=== PATIENT | female | born 1940 ===

== ENCOUNTER 2016-11-04 14:37 | Observation (INO) | payer MEDICARE, BC ==
[2016-11-04 14:47] VITALS: BMI 21.4
[2016-11-04 14:49] VITALS: O2SAT 96
[2016-11-04] MEDS ORDERED: Sodium Chloride 0.9% 1,000 ML IV STA (15:11)
[2016-11-04 15:22] LABS: ADD MANUAL DIFF? NO
[2016-11-04 15:24] LABS: VENOUS BLOOD GAS BASE EXCESS 4.2 mmol/L (0.0-2.0); VENOUS BLOOD PH 7.36 (7.32-7.43)
--- NOTE | 2016-11-04 15:27 | ED PDOC ---
Arrival/HPI - General Historian: Patient, Family - History of Present Illness Time/Duration: 4-6 hours Symptom Onset: Sudden Symptom Course: Unchanged Severity Level: Moderate <Raghu Bowman - Last Filed: 11/04/16 18:40> <Hardik Castañeda - Last Filed: 11/04/16 19:43> - General Chief Complaint: GI Problem Time Seen by Provider: 11/04/16 14:47 - History of Present Illness Narrative History of Present Illness (Text): 11/04/16 15:22 This is a 76 year old female with a PMH notable for HLD, HTN, depression/anxiety , trigeminal neuralgia, and GERD presenting to the ED for evaluation of nausea and vomiting. The patient's daughter reports that the patient is altered from her baseline and has vomited 6-7 times since 12:30pm. The vomitus is bilious without blood. The patient had an appointment with a GI specialist today, but was unable to be seen 2/2 to vomiting. The patient denies fever, chills, sick contacts, chest pain, SOB, changes in bowels/bladder, and extremity paresthesias. 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 - Renal Hx Renal Disorder: No - Endocrine/Metabolic Hx Endocrine Disorders: No - Hematological/Oncological Hx Blood Disorders: No - Integumentary Hx Dermatological Disorder: No - Musculoskeletal/Rheumatological Hx Musculoskeletal Disorders: Yes Hx Falls: Yes (past) Other/Comment: 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 - Gastrointestinal Hx Gastrointestinal Disorders: Yes (hemorrhoids) - Genitourinary/Gynecological Hx Incontinence: Yes - Psychiatric Hx Psychophysiologic Disorder: Yes Hx Anxiety: Yes Hx Depression: Yes Hx Substance Use: No - Surgical History Hx Orthopedic Surgery: Yes (right hip and left arm) - Anesthesia Hx Anesthesia Reactions: No Hx Malignant Hyperthermia: No <Raghu Bowman - Last Filed: 11/04/16 18:40> <Hardik Castañeda - Last Filed: 11/04/16 19:43> - Patient History Narrative Patient History: This is a 76 year old female with a PMH notable for HLD, HTN, depression/anxiety , trigeminal neuralgia, and GERD (Raghu Bowman) Family/Social History - Physician Review Nursing Documentation Reviewed: Yes Family/Social History: No Known Family HX Smoking Status: Never Smoked Hx Alcohol Use: No Hx Substance Use: No <Raghu Bowman - Last Filed: 11/04/16 18:40> Allergies/Home Meds <Raghu Bowman - Last Filed: 11/04/16 18:40> <Hardik Castañeda - Last Filed: 11/04/16 19:43> Allergies/Adverse Reactions: Allergies acetaminophen [From Percocet] Allergy (Verified 11/04/16 14:47) VOMITING oxycodone HCl [From Percocet] Allergy (Verified 11/04/16 14:47) VOMITING Home Medications: Home Meds Medication Instructions Recorded Confirmed RX: Aspirin [Aspirin EC] 81 mg PO DAILY 09/18/16 11/04/16 RX: Sertraline [Zoloft] 50 mg PO HS 09/18/16 11/04/16 RX: carBAMazepine [TEGretol-XR] 100 mg PO QAM 09/18/16 11/04/16 RX: traZODone [Desyrel] 1 tab PO HS 09/18/16 11/04/16 carBAMazepine [TEGretol-XR] 200 mg PO TID 09/21/16 11/04/16 Atorvastatin [Lipitor] 20 mg PO DAILY 11/04/16 11/04/16 Losartan [Cozaar] 25 mg PO DAILY 11/04/16 11/04/16 Pantoprazole [Protonix] 40 mg PO DAILY 11/04/16 11/04/16 Review of Systems - Physician Review All systems were reviewed & negative as marked: Yes - Review of Systems Systems not reviewed;Unavailable: Altered Mental Status Constitutional: Fatigue Eyes: absent: Vision Changes ENT: absent: Hearing Changes, Tinnitus Respiratory: absent: SOB, Cough Cardiovascular: absent: Chest Pain, Palpitations Gastrointestinal: Abdominal Pain, Nausea, Vomiting Genitourinary Female: absent: Dysuria, Frequency Musculoskeletal: absent: Arthralgias, Back Pain Skin: absent: Rash Neurological: absent: Headache, Dizziness Endocrine: absent: Diaphoresis, Polyuria Hemo/Lymphatic: absent: Adenopathy Psychiatric: absent: Anxiety <Raghu Bowman - Last Filed: 11/04/16 18:40> Physical Exam Vital Signs Reviewed: Yes Temperature: Afebrile Blood Pressure: Hypertensive Pulse: Tachycardic Respiratory Rate: Normal Appearance: Positive for: Ill-Appearing Pain Distress: None Mental Status: Positive for: Lethargic. No: Alert and Oriented X 3 - Systems Exam Head: Present: Atraumatic, Normocephalic Pupils: Present: PERRL Extroacular Muscles: Present: EOMI Conjunctiva: Present: Normal Mouth: Present: Dry. No: Drooling Neck: Present: Normal Range of Motion. No: Meningeal Signs, JVD, Lymphadenopathy Respiratory/Chest: Present: Good Air Exchange, Rales (L lung base). No: Clear to Auscultation, Respiratory Distress, Accessory Muscle Use Cardiovascular: Present: Regular Rate and Rhythm, Normal S1, S2. No: Murmurs Abdomen: Present: Normal Bowel Sounds. No: Tenderness, Distention, Peritoneal Signs Upper Extremity: Present: Normal Inspection, NORMAL PULSES. No: Cyanosis, Edema Lower Extremity: Present: Normal Inspection, NORMAL PULSES. No: Edema Neurological: Present: CN II-XII Intact. No: Memory Normal Skin: Present: Warm, Dry, Normal Color. No: Rashes Psychiatric: Present: Alert, Oriented x 3, Normal Insight, Normal Concentration <Raghu Bowman - Last Filed: 11/04/16 18:40> Vital Signs Temp Pulse Resp BP Pulse Ox 11/04/16 14:38 98.3 F 106 H 12 180/90 H 96 Medical Decision Making - Lab Interpretations I have reviewed the lab results: Yes Interpretation: No clinic. lab abnormalty - RAD Interpretation Early Childhood Worker: ED Physician, Radiologist - EKG Interpretation Interpreted by ED Physician: Yes Type: 12 lead EKG <Raghu Bowman - Last Filed: 11/04/16 18:40> <Hardik Castañeda - Last Filed: 11/04/16 19:43> ED Course and Treatment: 11/04/16 15:33 Impression: This is a 76 year old female with a PMH notable for HLD, HTN, depression/anxiety , trigeminal neuralgia, and GERD presenting to the ED for evaluation of nausea and vomiting. The patient appears clinically ill. The patient is lethargic and altered from her baseline per the daughter. Differential: Sepsis PNA UTI CVA Plan: CBC, CMP, Lipase, Mag, Phos, PT, PTT, BNP Blood Cultures VBG UA, Urine Cultures EKG CT Head w/o contrast CXR 1L Bolus NS Zofran 4mg IV stat CT Abd/Pelv with PO and IV contrast Prior Visits: 09/21/16- Vomiting Progress Note: Patient seen and examined at the bedside. Patient appears clinically ill. Patient is lethargic. Patient has basin with small amount of bilious emesis inside. Patient will had a septic workup. CT Head and CXR pending. Labs pending. Patient is also pending CT abd/pelv with PO and IV contrast. 11/04/16 17:30 Dr. Cardenas called and the case was discussed in detail over the phone. He agrees to accept the patient for admission to his service for observation. ( Raghu Bowman) Patient Seen With Resident: In agreement with resident note which contains more details about the patient. Patient was seen and evaluated with resident. Came up with plan and treatment together. 76 year old female presented with nausea and vomiting today. EKG shows NSR at 93 BPM, normal intervals, normal axis, no ST elevations, interpreted by me. 11/04/16 19:[address] David to f/u CT and admit. (Hardik Castañeda) - Lab Interpretations Narrative Lab Interpretation (Text): 11/04/16 15:47 11/04/16 15:00 WBC 7.0 RBC 3.87 Hgb 11.9 L Hct 36.2 MCV 93.5 MCH 30.7 MCHC 32.9 RDW 12.9 Plt Count 182 MPV 9.8 Gran % 82.9 H Lymph % (Auto) 11.1 L Harris % (Auto) 5.4 Eos % (Auto) 0.3 L Baso % (Auto) 0.3 Gran # 5.83 Lymph # 0.8 L Harris # 0.4 Eos # 0.0 Baso # 0.02 PT 11.0 INR 1.02 APTT 23.3 L pO2 52 VBG pH 7.36 VBG pCO2 55.0 VBG HCO3 31.1 H VBG Total CO2 32.8 H VBG O2 Sat (Calc) 88.9 H VBG Base Excess 4.2 H VBG Potassium 3.7 Glucose 151 H Lactate 1.4 FiO2 21.0 Sodium 141.0 Potassium 3.8 Chloride 106.0 Carbon Dioxide 28 Anion Gap 16 BUN 11 Creatinine 0.6 Est GFR ( Amer) > 60 Est GFR (Non-Af Amer) > 60 Random Glucose 144 H Calcium 9.1 Phosphorus 3.8 Magnesium 1.8 Total Bilirubin 0.5 AST 19 ALT 12 Alkaline Phosphatase 112 Troponin I Pending NT-Pro-B Natriuret Pep Pending Total Protein 7.0 Albumin 3.9 Globulin 3.1 Albumin/Globulin Ratio 1.3 Venous Blood Potassium 3.7 (Raghu Bowman) Lab Results: 11/04/16 15:00 11/04/16 15:00 Lab Results 11/04/16 16:35: Lipase 65, Urine Color Yellow, Urine Appearance Clear, Urine pH 7.5, Ur Specific [place] 1.015, Urine Protein Negative, Urine Glucose (UA) Negative, Urine Ketones Negative, Urine Blood Negative, Urine Nitrate Negative, Urine Bilirubin Negative, Urine Urobilinogen 1.0 H, Ur Leukocyte Esterase Negative, Carbamazepine 12 H* 11/04/16 15:00: WBC 7.0, RBC 3.87, Hgb 11.9 L, Hct 36.2, MCV 93.5, MCH 30.7, MCHC 32.9, RDW 12.9, Plt Count 182, MPV 9.8, Gran % 82.9 H, Lymph % (Auto) 11.1 L, Harris % (Auto) 5.4, Eos % (Auto) 0.3 L, Baso % (Auto) 0.3, Gran # 5.83, Lymph # 0.8 L, Harris # 0.4, Eos # 0.0, Baso # 0.02, PT 11.0, INR 1.02, APTT 23.3 L, pO2 52, VBG pH 7.36, VBG pCO2 55.0, VBG HCO3 31.1 H, VBG Total CO2 32.8 H, VBG O2 Sat (Calc) 88.9 H, VBG Base Excess 4.2 H, VBG Potassium 3.7, Glucose 151 H, Lactate 1.4, FiO2 21.0, Sodium 141.0, Potassium 3.8, Chloride 106.0, Carbon Dioxide 28, Anion Gap 16, BUN 11, Creatinine 0.6, Est GFR ( Amer) > 60, Est GFR (Non-Af Amer) > 60, Random Glucose 144 H, Calcium 9.1, Phosphorus 3.8, Magnesium 1.8, Total Bilirubin 0.5, AST 19, ALT 12, Alkaline Phosphatase 112, Troponin I < 0.01, NT-Pro-B Natriuret Pep 173, Total Protein 7.0, Albumin 3.9, Globulin 3.1, Albumin/Globulin Ratio 1.3, Venous Blood Potassium 3.7 - RAD Interpretation Narrative RAD Interpretations (Text): 11/04/16 15:48 CXR- no acute pulmonary pathology 11/04/16 16:[address]- no acute abnormality (Raghu Bowman) Radiology Orders: 11/04/16 15:07 CHEST PORTABLE [RAD] Stat 11/04/16 15:41 HEAD W/O CONTRAST [CT] Stat 11/04/16 16:29 ABDOMEN & PELVIS [ABD PELVIS PO & IV CONTRAST] [CT] Stat - EKG Interpretation EKG Interpretation (Text): 11/04/16 15:39 93bpm normal sinus rhythm normal axis no st t wave changes normal intervals (Raghu Bowman) - Medication Orders Current Medication Orders: Aspirin (Ecotrin) 81 mg PO DAILY ZEINAB Atorvastatin Calcium (Lipitor) 20 mg PO DAILY ZEINAB Carbamazepine (Tegretol) 200 mg PO TID ZEINAB Last Admin: 11/04/16 18:15 Dose: 200 MG Behavioural Document 11/04/16 18:15 EQ (Rec: 11/04/16 18:15 EQ [facility] [email or web address] Maintenance Maintenance Dose Yes Sodium Chloride (Sodium Chloride 0.45%) 1,000 mls @ 40 mls/hr IV .Q24H ZEINAB Last Admin: 11/04/16 18:15 Dose: 40 MLS/HR eMAR Start Stop Document 11/04/16 18:15 EQ (Rec: 11/04/16 18:15 EQ [email or web address] Intravenous Solution Start Date 11/04/16 Start Time 18:15 Insulin Human Regular (Humulin R Med) 0 units SC ACHS ZEINAB PRN Reason: Protocol Losartan Potassium (Cozaar) 25 mg PO DAILY ZEINAB Ondansetron HCl (Zofran Inj) 4 mg IVP Q4H PRN PRN Reason: Nausea/Vomiting Pantoprazole Sodium (Protonix Inj) 40 mg IVP DAILY [facility] Last Admin: 11/04/16 18:15 Dose: 40 MG IVP Administration Document 11/04/16 18:15 EQ (Rec: 11/04/16 18:15 EQ [email or web address] Charges for Administration # of IVP Administrations 1 Sertraline HCl (Zoloft) 50 mg PO HS ZEINAB Trazodone HCl (Desyrel) 100 mg PO HS ZEINAB Discontinued Medications Sodium Chloride (Sodium Chloride 0.9%) 1,000 mls @ 999 mls/hr IV .Q1H1M STA Stop: 11/04/16 16:11 Last Admin: 11/04/16 15:19 Dose: 999 MLS/HR eMAR Start Stop Document 11/04/16 15:19 EQ (Rec: 11/04/16 15:19 EQ [email or web address] Intravenous Solution Start Date 11/04/16 Start Time 15:19 Iohexol (Omnipaque 350 100 Ml) Confirm Administered Dose 350 mg .ROUTE .STK-MED ONE Stop: 11/04/16 17:56 Iohexol (Omnipaque 240 (50 Ml)) Confirm Administered Dose 50 ml .ROUTE .STK-MED ONE Stop: 11/04/16 17:57 Disposition/Present on Arrival - Present on Arrival Any Indicators Present on Arrival: No History of DVT/PE: No History of Uncontrolled Diabetes: No Urinary Catheter: No History of Decub. Ulcer: No History Surgical Site Infection Following: None - Disposition Have Diagnosis and Disposition been Completed?: Yes Disposition Time: 16:00 Patient Plan: Admission <Raghu Bowman - Last Filed: 11/04/16 18:40> - Present on Arrival Any Indicators Present on Arrival: No - Disposition Have Diagnosis and Disposition been Completed?: Yes Disposition Time: 19:43 Patient Plan: Admission <Hardik Castañeda - Last Filed: 11/04/16 19:43> - Disposition Diagnosis: Intractable nausea and vomiting, Weakness Disposition: HOSPITALIZED Patient Problems: Current Active Problems Problem Status Diagnosed Intractable nausea and vomiting Acute Intractable vomiting Acute Weakness Acute Condition: FAIR
[2016-11-04 15:29] LABS: BASO # 0.02 K/mm3 (0.0-2.0); BASO % 0.3 % (0.0-3.0); EOS % 0.3 % (1.5-5.0); GRAN # 5.83 (1.4-6.5); GRAN % 82.9 % (50.0-68.0); HEMATOCRIT 36.2 % (36.0-48.0); LYMPH # 0.8 (1.2-3.4); LYMPH % 11.1 % (22.0-35.0); MEAN CELL VOLUME 93.5 fL (80.0-105.0); MEAN CORPUSCULAR HEMOGLOBIN 30.7 pg (25.0-35.0); MEAN CORPUSCULAR HGB CONC 32.9 g/dl (31.0-37.0); MEAN PLATELET VOLUME 9.8 fl (7.0-11.0); MONO # 0.4 (0.1-0.6); MONO % 5.4 % (1.0-6.0); PLATELET COUNT 182 10^3/uL (120.0-450.0); RED CELL DISTRIBUTION WIDTH 12.9 % (11.5-14.5)
[2016-11-04 15:35] LABS: ALB/GLOB RATIO 1.3 (1.1-1.8); ALKALINE PHOSPHATASE 112 U/L (38-133); ALT/SGPT 12 U/L (7-56); AST/SGOT 19 U/L (15-39); BILIRUBIN,TOTAL 0.5 mg/dL (0.2-1.3); BLOOD UREA NITROGEN 11 mg/dL (7-21); CALCIUM 9.1 mg/dL (8.4-10.5); CARBON DIOXIDE 28 mmol/L (21-33); CHLORIDE 100 mmol/L (98-107); GFR AFRICAN-AMERICAN > 60; GLUCOSE,RANDOM 144 mg/dL (70-110); INR 1.02 (0.93-1.08); MAGNESIUM 1.8 mg/dL (1.7-2.2); PARTIAL THROMBOPLASTIN TIME 23.3 Seconds (23.7-30.8); PHOSPHOROUS 3.8 mg/dL (2.5-4.5); POTASSIUM 3.8 mmol/L (3.6-5.0); SODIUM 140 mmol/L (132-148)
[2016-11-04 15:48] LABS: TROPONIN I < 0.01 ng/mL
--- NOTE | 2016-11-04 15:53 | RAD ---
HISTORY: Sepsis Patient COMPARISON: 09/21/2016 FINDINGS: LUNGS: No active pulmonary disease. PLEURA: No significant pleural effusion identified, no pneumothorax apparent. CARDIOVASCULAR: Normal. OSSEOUS STRUCTURES: No significant abnormalities. VISUALIZED UPPER ABDOMEN: Normal. OTHER FINDINGS: None. IMPRESSION: No active disease.
--- NOTE | 2016-11-04 16:15 | CT ---
PROCEDURE: CT HEAD WITHOUT CONTRAST. HISTORY: AMS COMPARISON: 09/22/2016 TECHNIQUE: Axial computed tomography images were obtained through the head/brain without intravenous contrast. Radiation dose: Total exam DLP = 774 mGy-cm. FINDINGS: HEMORRHAGE: No intracranial hemorrhage. BRAIN: No mass effect or edema. No atrophy or chronic microvascular ischemic changes. VENTRICLES: Unremarkable. No hydrocephalus. CALVARIUM: Unremarkable. PARANASAL SINUSES: Unremarkable as visualized. No significant inflammatory changes. MASTOID AIR CELLS: Unremarkable as visualized. No inflammatory changes. OTHER FINDINGS: None. IMPRESSION: No acute finding
[2016-11-04] MEDS ORDERED: Sodium Chloride 0.45% 1,000 ML IV SCH (16:30)
[2016-11-04 16:45] LABS: PH,URINE 7.5 (4.7-8.0); URINE BILIRUBIN NEGATIVE (NEGATIVE); URINE BLOOD NEGATIVE (NEGATIVE); URINE GLUCOSE (UA) NEGATIVE (NEGATIVE); URINE KETONE NEGATIVE (NEGATIVE); URINE LEUKOCYTE ESTERASE NEGATIVE Leu/uL (NEGATIVE); URINE PROTEIN NEGATIVE mg/dL (<30 mg/dL)
[2016-11-04 16:49] LABS: URINE APPEARANCE CLEAR (CLEAR); URINE COLOR YELLOW (YELLOW)
[2016-11-04] MEDS ORDERED: Iohexol 350 MG/100 ML VIAL ONE (17:55)
[2016-11-04] MEDS ORDERED: Iohexol 240 (50 ml) ONE (17:56)
[2016-11-04] MEDS ORDERED: CARBAMAZEPINE 200 MG PO SCH (18:00)
--- NOTE | 2016-11-04 21:49 | CT ---
EXAM: CT Abdomen and Pelvis With Intravenous Contrast. CLINICAL HISTORY: 76 years old, female; Signs and symptoms; Nausea and vomiting; Prior surgery; Surgery date: 6+ months; Surgery type: Cholecystectomy; Additional info: Intractible nausea and vomiting TECHNIQUE: Axial computed tomography images of the abdomen and pelvis with intravenous contrast. This CT exam was performed using one or more of the following dose reduction techniques: automated exposure control, adjustment of the mA and/or kV according to patient size, and/or use of iterative reconstruction technique. Coronal and sagittal reformatted images were created and reviewed. CONTRAST: 100 mL of OMNIPAQUE 350 administered intravenously. COMPARISON: CT - ABD PELVIS IV CONTRAST ONLY 09/21/2016 1:13:28 PM FINDINGS: Lower thorax: Mild cardiomegaly. Mild atelectasis/scarring. Few pulmonary nodules, up to 0.4 cm, stable. ABDOMEN: Liver: Minimal intrahepatic ductal dilatation. Gallbladder and bile ducts: Cholecystectomy. Dilated common bile duct, up to 1.4 cm, grossly stable. Pancreas: No ductal dilation. No mass. Spleen: No splenomegaly. Adrenals: No mass. Kidneys and ureters: RIGHT renal cyst. No hydronephrosis. Stomach and bowel: Tiny duodenal diverticulum. Few scattered diverticula within colon. No associated inflammatory stranding. No definite mural thickening. No obstruction. Appendix: Normal caliber. No inflammation. PELVIS: Bladder: Unremarkable. Reproductive: Unremarkable as visualized. ABDOMEN and PELVIS: Intraperitoneal space: No significant fluid collection. No free air. Bones/joints: Postsurgical changes of LEFT femur. Subacute compression deformity T11 vertebral body, stable. Mild degenerative changes of spine. Soft tissues: Unremarkable. Vasculature: Mild atherosclerotic disease. No abdominal aortic aneurysm. Lymph nodes: No pathologically enlarged lymph nodes. IMPRESSION: 1. Diverticulosis without CT evidence of diverticulitis. 2. Biliary ductal dilatation, grossly stable. Consider MRCP for further evaluation. 3. Incidental/non-acute findings are described above.
[2016-11-04] MEDS ORDERED: Apap-Butalbital-Caffeine 325-50-40mg Tab PO STA (22:03)
[2016-11-04] MEDS: Insulin Reg-MEDIUM-Coverage SC SCH (22:28)
[2016-11-04] MEDS ORDERED: guaiFENesin 100 mg/5 ml Syrup UD PO PRN (22:52)
[2016-11-05 00:07] VITALS: TEMP 98.1
--- NOTE | 2016-11-05 06:03 | HP ---
I know the patient quite well after spending 3 weeks with her at [facility] for rehabilitation and [facility] for status post left hip surgery. She is here this morning with about 8 hours of nause a, vomiting, and diarrhea. Brought in by her daughter. She is a 76-year-old female with nausea, vom iting, diarrhea, some watery diarrhea, and she is uncomfortable with some abdominal pain. She had no temperatures. Other than that, she has been doing quite well. She has been home. PAST MEDICAL HISTORY: Anxiety, depression. PAST SURGICAL HISTORY: History left hip surgery. SOCIAL HISTORY: No smoking, no drinking, no drugs. MEDICATIONS: She takes atorvastatin for high cholesterol, Protonix for GERD, aspirin, Cozaar for hyp ertension, Zoloft for depression, Tegretol for her seizures and Desyrel for psychiatric disorders. REVIEW OF SYSTEMS: No vision changes, no hearing changes. Her speech is slow, but that is her basel ine. No chest pain, no shortness of breath, no palpitations. No coughing up mucus. No dizziness, no headache. She is having nausea, vomiting, and diarrhea with abdominal pain. She is having left jarad e a little bit weakness which she has been going to physical therapy for for a while. PHYSICAL EXAMINATION: VITAL SIGNS: She has a 98.3 temp, 106 pulse, 180/90 blood pressure, 12 respiratory rate, 96% O2 sat on room air. HEENT: Head is atraumatic, normocephalic. Extraocular muscles are intact. Pupils equal, reactive t o light. NECK: Supple. HEART: Regular rate. LUNGS: Decreased breath sounds but clear to auscultation. ABDOMEN: Soft, nontender, positive bowel sounds. No guarding, no rebound, no CVA tenderness. EXTREMITIES: No edema. Left side is weaker than the right side. She can move all 4 extremities. NEUROLOGIC: Cranial nerves II-XII grossly intact. LYMPHATICS: Thyroid midline. No palpable lymphadenopathy appreciated. LABORATORY DATA: She has a white count of 7, hemoglobin 11.9, hematocrit 36.2, platelets 182. INR i s 1.02. Sodium 140, potassium 3.8, BUN 11, creatinine 0.6, GFR is greater than 60, sugar is 144 (I p ut her on insulin coverage), calcium 9.1, phosphorus 3.8, magnesium 1.8. Total bili is 0.5, AST is 1 9, ALT is 12, alkaline phosphatase 112. Troponin is less than 0.01. Total protein is 7, albumin is 3.9, globulin 3.1. Lipase is 65. Urine: Urobilirubin is 1; otherwise is negative. She will have a consult with GI. She will have IV fluids. She will have Zofran, Protonix, insulin c overage, her basic regular medications. Waiting for a CAT scan of the abdomen and pelvis to be perfo rmed. She is going to go in for observation status right now. I ordered physical therapy. I am goi ariel to order stool for C. diff. I am hoping that she improves. She will be in observation and if she does well, will discharge her tomorrow. If she improves, I will start her on clear fluids tomorrow morning, maybe regular for lunch if she has a good night. But or right now, she will be n.p.o. excep t for meds. This patient is in observation status for nausea, vomiting and diarrhea. Chau Cardenas DO cc: [id number] TT: 11/05/2016 06:02:34 alex
[2016-11-05 07:05] LABS: ALB/GLOB RATIO 1.1 (1.1-1.8); ALKALINE PHOSPHATASE 83 U/L (38-133); ALT/SGPT 11 U/L (7-56); AST/SGOT 19 U/L (15-39); BILIRUBIN,TOTAL 0.5 mg/dL (0.2-1.3); BLOOD UREA NITROGEN 8 mg/dL (7-21); CALCIUM 8.8 mg/dL (8.4-10.5); CARBON DIOXIDE 30 mmol/L (21-33); CHLORIDE 103 mmol/L (98-107); GFR AFRICAN-AMERICAN > 60; GLUCOSE,RANDOM 94 mg/dL (70-110); POTASSIUM 3.5 mmol/L (3.6-5.0); SODIUM 139 mmol/L (132-148)
[2016-11-05 07:12] LABS: MEAN CELL VOLUME 93.9 fL (80.0-105.0); MEAN CORPUSCULAR HEMOGLOBIN 30.6 pg (25.0-35.0); MEAN CORPUSCULAR HGB CONC 32.6 g/dl (31.0-37.0); MEAN PLATELET VOLUME 9.8 fl (7.0-11.0); RED CELL DISTRIBUTION WIDTH 13.3 % (11.5-14.5); WHITE BLOOD COUNT 5.6 10^3/ul (4.5-11.0)
[2016-11-05] MEDS: Insulin Reg-MEDIUM-Coverage SC SCH ×2 (08:20→12:37)
[2016-11-05] MEDS ORDERED: Potassium Chloride 10 mEq 100 ML IVPB ONE (08:21)
[2016-11-05 09:11] VITALS: BP 125/59; PULSE 89
[2016-11-05 09:33] VITALS: RESP 18
--- NOTE | 2016-11-05 12:05 | CP.PCM.CON ---
History of Present Illness - History of Present Illness History of Present Illness: CC: Vomiting HPI: 76 year old female with h/o HTN, HLD, depression/anxiety, trigeminal neuralgia, and GERD who is admitted with vomiting. She reports about 6-7 episodes of non-bloody vomiting yesterday. She says that prior to that she was doing fine. She denies any abdominal pain now. She feels better today after eating breakfast. She reports having 1-2 bm per day. She doesn't chew her food well per the career development associate at the bedside. She recently had an endoscopy which was not too remarkable. She does take PPI daily. CT scan reviewed. No chest pain or sob. No fever. No weight loss. No blood in the stool. No dysphagia. 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 - RENAL Hx Chronic Kidney Disease: No - ENDOCRINE/METABOLIC Hx Endocrine Disorders: No - HEMATOLOGICAL/ONCOLOGICAL Hx Blood Disorders: No - INTEGUMENTARY Hx Dermatological Problems: No - MUSCULOSKELETAL/RHEUMATOLOGICAL Hx Arthritis: Yes (rheumatoid arthritis) Hx Falls: No - GASTROINTESTINAL Hx Gastrointestinal Disorders: Yes (hemorrhoids) - GENITOURINARY/GYNECOLOGICAL Hx Incontinence: Yes - PSYCHIATRIC Hx Psychophysiologic Disorder: Yes Hx Anxiety: Yes Hx Depression: Yes Hx Substance Use: No - SURGICAL HISTORY Hx Orthopedic Surgery: Yes (right hip and left arm) - ANESTHESIA Hx Anesthesia Reactions: No Hx Malignant Hyperthermia: No Meds Allergies/Adverse Reactions: Allergies Allergy/AdvReac Type Severity Reaction Status Date / Time acetaminophen [From Percocet] AdvReac Intermediate DIZZINESS Verified 11/04/16 22:57 oxycodone HCl [From Percocet] AdvReac Intermediate DIZZINESS Verified 11/04/16 22:57 - Medications Medications: Current Medications Aspirin (Ecotrin) 81 mg PO DAILY [facility] Last Admin: 11/05/16 09:03 Dose: 81 mg Atorvastatin Calcium (Lipitor) 20 mg PO DAILY [facility] Last Admin: 11/05/16 09:03 Dose: 20 mg Carbamazepine (Tegretol) 200 mg PO BID [facility] Last Admin: 11/05/16 09:03 Dose: 200 mg Guaifenesin (Robitussin) 100 mg PO Q6 PRN PRN Reason: Cough Last Admin: 11/04/16 23:12 Dose: 100 mg Sodium Chloride (Sodium Chloride 0.45%) 1,000 mls @ 40 mls/hr IV .Q24H [facility] Last Admin: 11/04/16 18:15 Dose: 40 mls/hr Insulin Human Regular (Humulin R Med) 0 units SC ACHS [facility] PRN Reason: Protocol Last Admin: 11/05/16 08:20 Dose: Not Given Losartan Potassium (Cozaar) 25 mg PO DAILY [facility] Last Admin: 11/05/16 09:03 Dose: 25 mg Ondansetron HCl (Zofran Inj) 4 mg IVP Q4H PRN PRN Reason: Nausea/Vomiting Last Admin: 11/04/16 23:14 Dose: 4 mg Pantoprazole Sodium (Protonix Inj) 40 mg IVP DAILY [facility] Last Admin: 11/05/16 09:03 Dose: 40 mg Sertraline HCl (Zoloft) 50 mg PO HS [facility] Last Admin: 11/04/16 22:28 Dose: 50 mg Trazodone HCl (Desyrel) 100 mg PO [facility] Last Admin: 11/04/16 22:28 Dose: 100 mg Physical Exam - Constitutional Appears: No Acute Distress, Chronically Ill Additional comments: elderly female - Head Exam Head Exam: ATRAUMATIC, NORMOCEPHALIC - Eye Exam Eye Exam: Normal appearance, PERRL. absent: Scleral icterus - ENT Exam ENT Exam: Mucous Membranes Moist, Normal Oropharynx - Neck Exam Neck exam: Negative for: Lymphadenopathy, Thyromegaly - Respiratory Exam Respiratory Exam: Clear to Auscultation Bilateral, NORMAL BREATHING PATTERN. absent: Wheezes, Respiratory Distress - Cardiovascular Exam Cardiovascular Exam: REGULAR RHYTHM, +S1, +S2 - GI/Abdominal Exam GI & Abdominal Exam: Soft. absent: Distended, Firm, Guarding, Tenderness - Extremities Exam Extremities exam: Positive for: normal capillary refill. Negative for: pedal edema - Neurological Exam Neurological exam: Alert, Oriented x3 - Psychiatric Exam Psychiatric exam: Normal Affect, Normal Mood - Skin Skin Exam: Dry, Normal Color, Warm Results - Vital Signs Recent Vital Signs: Last Vital Signs Temp 98.1 F 11/05/16 06:00 Pulse 89 11/05/16 09:03 Resp 18 11/05/16 06:00 BP 125/59 L 11/05/16 09:03 Pulse Ox 96 11/05/16 06:00 - Labs Result Diagrams: 11/05/16 06:00 11/05/16 06:00 Labs: Laboratory Results - last 24 hr 11/05/16 06:00 WBC 5.6 RBC 3.30 L Hgb 10.1 L Hct 31.0 L MCV 93.9 MCH 30.6 MCHC 32.6 RDW 13.3 Plt Count 169 MPV 9.8 Sodium 139 Potassium 3.5 L Chloride 103 Carbon Dioxide 30 Anion Gap 10 BUN 8 Creatinine 0.7 Est GFR ( Amer) > 60 Est GFR (Non-Af Amer) > 60 Random Glucose 94 Calcium 8.8 Total Bilirubin 0.5 AST 19 ALT 11 Alkaline Phosphatase 83 Total Protein 6.0 Albumin 3.2 Globulin 2.8 Albumin/Globulin Ratio 1.1 Assessment & Plan - Assessment and Plan (Free Text) Assessment: 76 year old female with h/o HTN, HLD, GERD, trigemninal neuralgia a/w vomiting 1. Nausea and vomiting 2. GERD 3. Common bile duct dilation Plan: -symptoms appear resolved -continue PPI therapy -supportive care IV hydration/antiemetics as needed -advance diet as tolerated -ok to discharge from GI standpoint if tolerating diet -recent endoscopy with biopsies was unremarkable -CT scan reviewed -CBD dilation noted -recommend elective MRCP, can be done outpatient -most likely etiology is post cholecystectomy -lfts are normal -will sign off at this time - Date & Time Date: 11/05/16 Time: 12:05
--- NOTE | 2016-11-05 12:08 | CARD ---
APPROVED REPORT EKG Measurement Heart [id number] <Conclusion> Normal sinus rhythm Normal ECG
--- NOTE | 2016-11-05 22:08 | DS ---
She will be discharged today. She did very well last night. She slept very well. No more nausea, vomiting this morning, blood pressure is better. She is comfortable, alert, better attitude. She is on IV fluids, Cozaar, Desyrel, Ecotrin, Fioricet as needed that was discontinued, insulin as needed for routine checks, Lipitor, Protonix, Robitussin, IV fluids. I decreased her Tegretol since it was an elevated number from 3 times a day to 1 a day, Zofran, and Zoloft. PHYSICAL EXAMINATION: VITAL SIGNS: She has a 98.1 temp, 118 which is now 98 pulse, 124/55 blood pressure, 20 respiratory rate, O2 sat on room air. She is very alert, aware, talking, more animated today than yesterday. HEENT: Head is atraumatic, normocephalic. Throat is moist. NECK: Supple. HEART: Regular rate. LUNGS: Decreased breath sounds, but clear to auscultation. ABDOMEN: Soft. EXTREMITIES: No edema, much better than the other day. MEDICATIONS: She is currently on Cozaar, Desyrel, Ecotrin, Lipitor, Protonix, Tegretol, Zofran and Zoloft. LABORATORY DATA: She has a white count of 5.6, hemoglobin is 10.1, hematocrit 31, platelets 169. A 139 sodium, potassium 3.5. We will give her a K rider this morning. BUN is 8, creatinine 0.7, GFR is greater than 60, sugar is 94, calcium is 8.8, total bili is 0.5, AST is 19, ALT 11, alk phos is 83, total protein 6. Urine was clean. Her carbamazepine was elevated at 12; we will decrease the Tegretol to twice a day from 3 times a day. PLAN: To discharge her later today. She will have clears for breakfast, regular lunch. If she does well, she goes home. They will call me after lunch , the nurses. Chau Cardenas DO cc: [phone] TT: 11/05/2016 22:07:43 alex BROWN
== END 2016-11-05 13:47 | disposition home or self-care (01) ==
LOC: ED 14:37 → ERH 17:29 → 3RNO 21:44
PROVIDERS: ADMIT Family Medicine; ATTEND Family Medicine
DX: R11.2 Nausea with vomiting, unspecified (principal); R53.1 Weakness; R19.7 Diarrhea, unspecified; I10 Essential (primary) hypertension; E78.00 Pure hypercholesterolemia, unspecified; F32.9 Major depressive disorder, single episode, unspecified; F41.9 Anxiety disorder, unspecified; K21.9 Gastro-esophageal reflux disease without esophagitis; G50.0 Trigeminal neuralgia; K83.8 Other specified diseases of biliary tract; Z79.82 Long term (current) use of aspirin
CPT/HCPCS: 36415; 70450; 71010; 74177; 80053; 80156; 81003; 82803; 83690; 83735; 83880; 84100; 84145; 84484; 85025; 85027; 85610; 85730; 87040; 87086; 93005; 96374; 99285; C9113; G0378; J2405; J3480; J7030; J7040; Q9966; Q9967

== ENCOUNTER 2017-03-25 22:42 | Inpatient (IN) | payer MEDICARE, BC ==
[2017-03-25 23:22] LABS: BASO # 0.02 K/mm3 (0.0-2.0); BASO % 0.3 % (0.0-3.0); EOS # 0.1 (0.0-0.7); EOS % 1.6 % (1.5-5.0); GRAN # 4.39 (1.4-6.5); HEMOGLOBIN 11.6 g/dL (12.0-16.0); LYMPH # 2.2 (1.2-3.4); LYMPH % 29.8 % (22.0-35.0); MEAN CELL VOLUME 93.9 fl (80.0-105.0); MEAN CORPUSCULAR HEMOGLOBIN 30.9 pg (25.0-35.0); MEAN PLATELET VOLUME 9.7 fl (7.0-11.0); MONO # 0.7 (0.1-0.6); MONO % 9.3 % (1.0-6.0); PLATELET COUNT 190 10^3/uL (120.0-450.0); RBC 3.75 10^6/uL (3.5-6.1); RED CELL DISTRIBUTION WIDTH 13.2 % (11.5-14.5); WHITE BLOOD COUNT 7.4 10^3/ul (4.5-11.0)
[2017-03-25 23:23] LABS: ALB/GLOB RATIO 1.5 (1.1-1.8); ALBUMIN 3.8 g/dL (3.0-4.8); ALT/SGPT 15 U/L (7-56); AST/SGOT 24 U/L (15-39); BLOOD UREA NITROGEN 15 mg/dL (7-21); CALCIUM 8.7 mg/dL (8.4-10.5); GFR AFRICAN-AMERICAN > 60; GFR NON-AFRICAN AMERICAN > 60; MAGNESIUM 1.8 mg/dL (1.7-2.2)
[2017-03-25 23:29] LABS: INR 1.11 (0.93-1.08); PARTIAL THROMBOPLASTIN TIME 28.2 Seconds (23.7-30.8)
--- NOTE | 2017-03-25 23:33 | ED PDOC ---
Arrival/HPI - General Chief Complaint: Altered Mental Status Time Seen by Provider: 03/25/17 22:47 Historian: Patient, Family EM Caveat: Altered Mental Status - History of Present Illness Narrative History of Present Illness (Text): 03/25/17 23:33 77 year old female, whose past medical history includes hyperlipidemia, hypertension, depression/anxiety, trigeminal neuralgia, and GERD, presents by EMS for altered mental status after taking nightly medication. Patient's family reports she gave her the regular medications, but became unresponsive after. HPI and ROS limited due to patient's altered mental status. PMD: Dr. 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 - Renal Hx Renal Disorder: No - Endocrine/Metabolic Hx Endocrine Disorders: No - Hematological/Oncological Hx Blood Disorders: No - Integumentary Hx Dermatological Disorder: No - Musculoskeletal/Rheumatological Hx Arthritis: Yes (rheumatoid arthritis) Hx Falls: No - Gastrointestinal Hx Gastrointestinal Disorders: Yes (hemorrhoids) - Genitourinary/Gynecological Hx Incontinence: Yes - Psychiatric Hx Psychophysiologic Disorder: Yes Hx Anxiety: Yes Hx Depression: Yes Hx Substance Use: No - Surgical History Hx Orthopedic Surgery: Yes (right hip and left shoulder, left leg with metal) Other/Comment: metal implants - Anesthesia Hx Anesthesia Reactions: No Hx Malignant Hyperthermia: No Family/Social History - Physician Review Nursing Documentation Reviewed: Yes Family/Social History: No Known Family HX Smoking Status: Never Smoked Hx Alcohol Use: No Hx Substance Use: No Allergies/Home Meds Allergies/Adverse Reactions: Allergies acetaminophen [From Percocet] Adverse Reaction (Intermediate, Verified 11/04/16 22:57) DIZZINESS oxycodone HCl [From Percocet] Adverse Reaction (Intermediate, Verified 11/04/16 22:57) DIZZINESS Home Medications: Home Meds Medication Instructions Recorded Confirmed Aspirin [Aspirin EC] 81 mg PO DAILY 09/18/16 03/26/17 Sertraline [Zoloft] 100 mg PO HS 09/18/16 03/26/17 traZODone [Desyrel] 150 mg PO HS 09/18/16 03/26/17 Pantoprazole [Protonix EC Tab] 40 mg PO DAILY 11/04/16 03/26/17 Atorvastatin [Lipitor] 20 mg PO DAILY 03/26/17 03/26/17 Baclofen [Lioresal] 10 mg PO DAILY 03/26/17 03/26/17 Calcium Carbonate/Vitamin D3 1 tab PO DAILY 03/26/17 03/26/17 [Calcium 600+D Softgel] Gabapentin [Neurontin] 300 mg PO DAILY 03/26/17 03/26/17 Losartan [Cozaar] 25 mg PO DAILY 03/26/17 03/26/17 Promethazine [Phenergan] 12.5 mg PO Q6 PRN 03/26/17 03/26/17 Ranitidine HCl [Zantac] 150 mg PO BID 03/26/17 03/26/17 Sennosides/Docusate Sodium [Senna 2 tab PO DAILY 03/26/17 03/26/17 S Tablet] Temazepam [Restoril] 30 mg PO HS 03/26/17 03/26/17 Tramadol HCl/Acetaminophen 50 mg PO BID PRN 03/26/17 03/26/17 [Tramadol-Acetaminophn 37.5-325] carBAMazepine [TEGretol] 200 mg PO HS 03/26/17 03/26/17 carBAMazepine [TEGretol] 300 mg PO DAILY 03/26/17 03/26/17 Review of Systems - Physician Review All systems were reviewed & negative as marked: Yes - Review of Systems Systems not reviewed;Unavailable: Altered Mental Status Physical Exam Vital Signs Reviewed: Yes Vital Signs Pulse Resp BP Pulse Ox 03/26/17 03:35 89 16 140/68 100 03/26/17 02:13 80 16 132/81 100 03/26/17 00:22 84 16 103/53 L 100 03/25/17 23:02 67 18 125/74 95 03/25/17 22:52 66 14 125/74 100 Blood Pressure: Normal Pulse: Regular Respiratory Rate: Normal Appearance: Positive for: Well-Appearing, Non-Toxic, Comfortable Pain Distress: None Mental Status: No: Alert and Oriented X 3 Finger Stick Blood Glucose: 129 - Systems Exam Head: Present: Atraumatic, Normocephalic Pupils: Present: PERRL Extroacular Muscles: Present: EOMI Conjunctiva: Present: Normal Mouth: Present: Moist Mucous Membranes Neck: Present: Normal Range of Motion Respiratory/Chest: Present: Clear to Auscultation, Good Air Exchange. No: Respiratory Distress, Accessory Muscle Use Cardiovascular: Present: Regular Rate and Rhythm, Normal S1, S2. No: Murmurs Abdomen: Present: Normal Bowel Sounds. No: Tenderness, Distention, Peritoneal Signs Back: Present: Normal Inspection Upper Extremity: Present: Normal Inspection. No: Cyanosis, Edema Lower Extremity: Present: Normal Inspection. No: Edema Neurological: Present: GCS=15, CN II-XII Intact Skin: Present: Warm, Dry, Normal Color. No: Rashes Psychiatric: Present: Normal Insight, Normal Concentration Medical Decision Making ED Course and Treatment: 03/25/17 23:33 Impression: 77 year old female present for altered mental status at home after taking regular nightly medication. Plan: -- CT Head -- EKG -- Labs -- Chest X-ray -- Blood Culture -- Urine Culture -- Urinalysis -- Reassess and disposition Prior Visits: Notes and results from previous visits were reviewed. On 11/04/2016 patient came in complaining of nausea and vomiting. Progress Notes: EKG shows NSR at 70 BPM. Normal ECG. Interpreted by me. 03/26/17 00:50 CXR Impression: As read by me, shows no acute processes. EXAM: CT Head Without Intravenous Contrast 03/26/2017 12:58 AM Dictated and Authenticated by: Remberto Heath MD IMPRESSION: 1. No definite acute intracranial abnormality. 03/26/17 01:[address] Rodriguez who is aware and agrees with the plan. Accepts patient into service. Patient will go to to Telemetry observation for overnight observation. 03/26/17 01:12 Case discussed with medical customer service representative who is aware and agrees with the plan. - Lab Interpretations Microbiology Results: Microbiology Results 03/25/17 23:00 Blood-Venous Blood Culture - Preliminary NO GROWTH AFTER 24 HOURS 03/25/17 22:50 Blood-Venous Blood Culture - Preliminary NO GROWTH AFTER 24 HOURS Lab Results: 03/25/17 22:50 03/25/17 22:50 Lab Results 03/25/17 22:50: Alcohol, Quantitative < 10 03/25/17 22:50: Sodium 138, Potassium 3.9, Chloride 102, Carbon Dioxide 28, Anion Gap 12, BUN 15, Creatinine 0.6, Est GFR ( Amer) > 60, Est GFR (Non- Af Amer) > 60, Random Glucose 110, Calcium 8.7, Phosphorus 3.4, Magnesium 1.8, Total Bilirubin 0.4, AST 24, ALT 15, Alkaline Phosphatase 119, Lactate Dehydrogenase 492, Total Creatine Kinase 63, Troponin I < 0.01, Total Protein 6.4, Albumin 3.8, Globulin 2.6, Albumin/Globulin Ratio 1.5 03/25/17 22:50: PT 12.0 H, INR 1.11 H, APTT 28.2 03/25/17 22:50: WBC 7.4 D, RBC 3.75, Hgb 11.6 L, Hct 35.2 L, MCV 93.9, MCH 30.9 , MCHC 33.0, RDW 13.2, Plt Count 190, MPV 9.7, Gran % 59.0, Lymph % (Auto) 29.8 , [place] % (Auto) 9.3 H, Eos % (Auto) 1.6, Baso % (Auto) 0.3, Gran # 4.39, Lymph # 2.2, [place] # 0.7 H, Eos # 0.1, Baso # 0.02 03/25/17 10:50: Ammonia 32 I have reviewed the lab results: Yes - RAD Interpretation Radiology Orders: 03/25/17 23:04 HEAD W/O CONTRAST [CT] Stat 03/25/17 23:05 CHEST PORTABLE [RAD] Stat - EKG Interpretation Interpreted by ED Physician: Yes Type: 12 lead EKG - Medication Orders Current Medication Orders: Aspirin (Ecotrin) 325 mg PO DAILY [facility] Last Admin: 03/26/17 10:18 Dose: 325 mg Calcium Carbonate (Caltrate) 600 mg PO DAILY [facility] Last Admin: 03/26/17 10:34 Dose: Carbamazepine (Tegretol) 200 mg PO TID [facility] PRN Reason: Protocol Last Admin: 03/26/17 18:50 Dose: 200 mg Lorazepam (Ativan) 0.5 mg IVP Q6H PRN; Protocol PRN Reason: Anxiety Last Admin: 03/26/17 23:31 Dose: 0.5 mg Re-Assess: Reassess Psych Meds Document 03/27/17 00:01 [facility] (Rec[facility] 03/27/17 00[id number] Reassess Psych Med Effective Losartan Potassium (Cozaar) 25 mg PO DAILY [facility] Last Admin: 03/26/17 10:21 Dose: 25 mg Promethazine HCl (Phenergan Syrup) 12.5 mg PO Q6H PRN PRN Reason: GI DISTRESS Last Admin: 03/26/17 10:26 Dose: 12.5 mg Senna/Docusate Sodium (Senokot S 50 Mg-8.6 Mg) 1 tab PO DAILY [facility] Last Admin: 03/26/17 10:18 Dose: 1 tab Sertraline HCl (Zoloft) 100 mg PO HS [facility] Tramadol/Acetaminophen (Ultracet 37.5/325 Mg) 1 tab PO Q6 PRN PRN Reason: Pain, moderate (4-7) Trazodone HCl (Desyrel) 150 mg PO HS [facility] Vitamin D (Vitamin D 400 Intl Units Tab) 400 intlu PO DAILY [facility] Last Admin: 03/26/17 10:34 Dose: Discontinued Medications Lorazepam (Ativan) 0.5 mg IVP ONCE ONE PRN Reason: Protocol Stop: 03/27/17 01:47 Last Admin: 03/27/17 01:57 Dose: 0.5 mg Re-Assess: Reassess Psych Meds Document 03/27/17 02:27 [facility] (Rec: 03/27/17 03:43 [id number] Reassess Psych Med Ineffective-LIP notifed Lorazepam (Ativan) 0.5 mg IVP ONCE ONE PRN Reason: Protocol Stop: 03/27/17 03:46 Last Admin: 03/27/17 04:02 Dose: 0.5 mg Promethazine HCl (Phenergan Tab) 12.5 mg PO Q6 PRN PRN Reason: GI distress - Scribe Statement The provider has reviewed the documentation as recorded by the Scribe Moses Ospina All medical record entries made by the Scribe were at my direction and personally dictated by me. I have reviewed the chart and agree that the record accurately reflects my personal performance of the history, physical exam, medical decision making, and the department course for this patient. I have also personally directed, reviewed, and agree with the discharge instructions and disposition. Disposition/Present on Arrival - Present on Arrival Any Indicators Present on Arrival: No History of DVT/PE: No History of Uncontrolled Diabetes: No Urinary Catheter: No History of Decub. Ulcer: No History Surgical Site Infection Following: None - Disposition Have Diagnosis and Disposition been Completed?: Yes Diagnosis: Syncope, Altered mental status Disposition: HOSPITALIZED Disposition Time: 01:10 Condition: FAIR
[2017-03-25 23:39] LABS: TROPONIN I < 0.01 ng/mL
--- NOTE | 2017-03-26 00:59 | CT ---
EXAM: CT Head Without Intravenous Contrast CLINICAL HISTORY: 77 years old, female; Signs and symptoms; Altered mental status/memory loss; Additional info: AMS TECHNIQUE: Axial computed tomography images of the head/brain without intravenous contrast. All CT scans at this facility use one or more dose reduction techniques, viz.: automated exposure control; ma/kV adjustment per patient size (including targeted exams where dose is matched to indication; i.e. head); or iterative reconstruction technique. COMPARISON: CT - HEAD W/O CONTRAST 11/04/2016 3:58:07 PM FINDINGS: Brain: Mild atrophy. No intracranial hemorrhage. No mass. No definite edema. Ventricles: No hydrocephalus. Bones/joints: No acute fracture. Soft tissues: Unremarkable. Sinuses: No acute sinusitis. Mastoid air cells: No mastoid effusion. Orbits: Unremarkable as visualized. IMPRESSION: 1. No definite acute intracranial abnormality.
--- NOTE | 2017-03-26 01:49 | CP.PCM.HP ---
History of Present Illness - History of Present Illness History of Present Illness: Patient is a 77 year old female with PMH significant for hyperlipidemia, hypertension, depression/anxiety, trigeminal neuralgia and GERD who is brought to the [facility] via EMS after family noticed patient to be somnolent and with altered mental status after she was given her night time medication regiment. Patient family in room during interview and states that the patient received normal regiment of Carbamazepine 200mg, Trazadone 150mg and Temazepam 30mg this evening. Within 30 to 60 seconds the patient was noted to be somnolent and unable to stand. Family denies any trauma or seizure like activity at onset of somnolence. Family reports that patient has been taking this same regiment at night for months with out issue. Family indicates prior to tonight patient had been feeling herself and without complaints. PMH: as above PSH: Left Hip surgery Sochx: Denies tobacco, drinking, drugs Meds: See MAR Allergies: NKDA per family ROS limited due to somnolence Present on Admission - Present on Admission Any Indicators Present on Admission: No History of DVT/PE: No History of Uncontrolled Diabetes: No Urinary Catheter: No Decubitus Ulcer Present: No Review of Systems - Hematologic/Lymphatic Additional comments: ROS limited due to somnolence Past Patient History - Infectious Disease Hx of Infectious Diseases: None - Tetanus Immunizations Tetanus Immunization: Unknown - Past Social History Smoking Status: Never Smoked - CARDIAC Hx Cardiac Disorders: No - PULMONARY Hx Respiratory Disorders: No - NEUROLOGICAL 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 - RENAL Hx Chronic Kidney Disease: No - ENDOCRINE/METABOLIC Hx Endocrine Disorders: No - HEMATOLOGICAL/ONCOLOGICAL Hx Blood Disorders: No - INTEGUMENTARY Hx Dermatological Problems: No - MUSCULOSKELETAL/RHEUMATOLOGICAL Hx Arthritis: Yes (rheumatoid arthritis) Hx Falls: No - GASTROINTESTINAL Hx Gastrointestinal Disorders: Yes (hemorrhoids) - GENITOURINARY/GYNECOLOGICAL Hx Incontinence: Yes - PSYCHIATRIC Hx Psychophysiologic Disorder: Yes Hx Anxiety: Yes Hx Depression: Yes Hx Substance Use: No - SURGICAL HISTORY Hx Orthopedic Surgery: Yes (right hip and left shoulder, left leg with metal) Other/Comment: metal implants - ANESTHESIA Hx Anesthesia Reactions: No Hx Malignant Hyperthermia: No Meds Allergies/Adverse Reactions: Allergies Allergy/AdvReac Type Severity Reaction Status Date / Time acetaminophen [From Percocet] AdvReac Intermediate DIZZINESS Verified 11/04/16 22:57 oxycodone HCl [From Percocet] AdvReac Intermediate DIZZINESS Verified 11/04/16 22:57 Physical Exam - Constitutional Additional comments: Somnolent, able to arouse - Head Exam Head Exam: ATRAUMATIC, NORMAL INSPECTION, NORMOCEPHALIC - Eye Exam Eye Exam: EOMI (Patient able to track movement), PERRL - ENT Exam ENT Exam: Mucous Membranes Dry, Normal Exam - Neck Exam Neck exam: Negative for: Lymphadenopathy, Tenderness - Respiratory Exam Respiratory Exam: Decreased Breath Sounds, Clear to Auscultation Bilateral, NORMAL BREATHING PATTERN - Cardiovascular Exam Cardiovascular Exam: REGULAR RHYTHM, +S1, +S2 - GI/Abdominal Exam GI & Abdominal Exam: Normal Bowel Sounds, Soft. absent: Tenderness - Extremities Exam Extremities exam: Positive for: pedal pulses present. Negative for: calf tenderness, pedal edema - Back Exam Back exam: NORMAL INSPECTION. absent: tenderness - Neurological Exam Additional comments: Neurological exam limited due to patient somnolence Able to be aroused, opens eyes, follows simple commands, able to move all four extremities - Psychiatric Exam Additional comments: Patient somnolent at time of interview - Skin Skin Exam: Dry, Intact, Normal Color, Warm Results - Vital Signs Recent Vital Signs: Last Vital Signs Temp Pulse 84 03/26/17 00:22 Resp 16 03/26/17 00:22 BP 103/53 L 03/26/17 00:22 Pulse Ox 100 03/26/17 00:22 - Labs Result Diagrams: 03/25/17 22:50 03/25/17 22:50 Labs: Laboratory Results - last 24 hr 03/25/17 03/25/17 03/25/17 10:50 22:50 22:50 WBC 7.4 D RBC 3.75 Hgb 11.6 L Hct 35.2 L MCV 93.9 MCH 30.9 MCHC 33.0 RDW 13.2 Plt Count 190 MPV 9.7 Gran % 59.0 Lymph % (Auto) 29.8 Winkler % (Auto) 9.3 H Eos % (Auto) 1.6 Baso % (Auto) 0.3 Gran # 4.39 Lymph # 2.2 Winkler # 0.7 H Eos # 0.1 Baso # 0.02 PT 12.0 H INR 1.11 H APTT 28.2 Sodium Potassium Chloride Carbon Dioxide Anion Gap BUN Creatinine Est GFR ( Amer) Est GFR (Non-Af Amer) Random Glucose Calcium Phosphorus Magnesium Total Bilirubin AST ALT Alkaline Phosphatase Ammonia 32 Lactate Dehydrogenase Total Creatine Kinase Troponin I Total Protein Albumin Globulin Albumin/Globulin Ratio Alcohol, Quantitative 03/25/17 03/25/17 22:50 22:50 WBC RBC Hgb Hct MCV MCH MCHC RDW Plt Count MPV Gran % Lymph % (Auto) Winkler % (Auto) Eos % (Auto) Baso % (Auto) Gran # Lymph # Winkler # Eos # Baso # PT INR APTT Sodium 138 Potassium 3.9 Chloride 102 Carbon Dioxide 28 Anion Gap 12 BUN 15 Creatinine 0.6 Est GFR ( Amer) > 60 Est GFR (Non-Af Amer) > 60 Random Glucose 110 Calcium 8.7 Phosphorus 3.4 Magnesium 1.8 Total Bilirubin 0.4 AST 24 ALT 15 Alkaline Phosphatase 119 Ammonia Lactate Dehydrogenase 492 Total Creatine Kinase 63 Troponin I < 0.01 Total Protein 6.4 Albumin 3.8 Globulin 2.6 Albumin/Globulin Ratio 1.5 Alcohol, Quantitative < 10 Assessment & Plan - Assessment and Plan (Free Text) Assessment: Patient is a 77 year old female with PMH significant for hyperlipidemia, hypertension, depression/anxiety, trigeminal neuralgia and GERD who is brought to the [facility] ED via EMS after family noticed patient to be somnolent and with altered mental status after she was given her night time medication regiment. Plan: 1. Altered Mental status secondary to polypharmacy - CT head in ED with no definite acute intracranial abnormality - EKG NSR, No ST segment elevations/depressions - Urine drug screen pending - Follow up labwork - Neuro consult 2. Hx of HTN - BP stable - Hold antihypertensives at this time 3. Hx of anxiety/depression - Continue home meds 4. GI/DVT ppx - Protonix - SCD's - Date & Time Date: 03/26/17 Time: 02:27
[2017-03-26] MEDS ORDERED: TraMADol/Apap 37.5/325 mg Tab PO PRN (02:03)
[2017-03-26 02:25] LABS: PH,URINE 6.5 (4.7-8.0); URINE BILIRUBIN NEGATIVE (NEGATIVE); URINE BLOOD NEGATIVE (NEGATIVE); URINE GLUCOSE (UA) NEGATIVE (NEGATIVE); URINE LEUKOCYTE ESTERASE NEGATIVE Leu/uL (NEGATIVE); URINE NITRATE NEGATIVE (NEGATIVE); URINE PROTEIN TRACE mg/dL (<30 mg/dL); URINE UROBILINOGEN 0.2 E.U./dL (<1 E.U./dL)
[2017-03-26 02:26] LABS: URINE APPEARANCE CLEAR (CLEAR); URINE COLOR YELLOW (YELLOW)
[2017-03-26 02:36] LABS: BARBITURATES, UR NEGATIVE (NEGATIVE); BENZODIAZEPINES, UR POSITIVE (NEGATIVE); OPIATES, UR NEGATIVE (NEGATIVE); PHENCYCLIDINE, UR NEGATIVE (NEGATIVE)
[2017-03-26 02:41] LABS: URINE EPITHELIAL CELLS 0 - 2 /hpf (0-5); URINE RBC 0 - 2 /hpf (0-2); URINE WBC 0 - 2 /hpf (0-6)
[2017-03-26 05:28] VITALS: BMI 25.4
--- NOTE | 2017-03-26 07:11 | RAD ---
HISTORY: ams COMPARISON: 11/04/2016 FINDINGS: LUNGS: No active pulmonary disease. PLEURA: No significant pleural effusion identified, no pneumothorax apparent. CARDIOVASCULAR: Normal heart size. Atherosclerotic vascular calcification aortic knob OSSEOUS STRUCTURES: No significant abnormalities. VISUALIZED UPPER ABDOMEN: Normal. OTHER FINDINGS: Vague increased soft tissue density over right shoulder - possibly technical no history trauma IMPRESSION: No active cardiopulmonary disease.
[2017-03-26] MEDS ORDERED: Promethazine 6.25 MG/5 ML CUP PO PRN (09:12)
--- NOTE | 2017-03-26 09:53 | CARD ---
APPROVED REPORT EKG Measurement Heart [id number] <Conclusion> Normal sinus rhythm Normal ECG
[2017-03-26] MEDS ORDERED: Non Formulary Medication (Ranitidine Hcl [Zantac] 150 MG) PO SCH (10:00)
[2017-03-26] MEDS ORDERED: VITAMIN D3 PO SCH (10:00)
[2017-03-26] MEDS ORDERED: CARBAMAZEPINE 200 MG PO SCH (10:00)
[2017-03-26] MEDS ORDERED: CALCIUM CARBONATE PO SCH (10:00)
[2017-03-26] MEDS: Docusate-Senna 50 mg-8.6 mg Tab PO SCH (10:18)
[2017-03-26] MEDS: Cholecalciferol 400 Intl Units Tab PO SCH ×2 (10:18→10:34)
[2017-03-26] MEDS: Aspirin 325 mg EC Tablets PO SCH (10:18)
[2017-03-26 12:04] LABS: T4 5.5 ug/dL (5.5-11.0)
[2017-03-26 18:31] LABS: FOLATE 6.5 ng/mL
--- NOTE | 2017-03-26 18:38 | CON ---
DATE: HISTORY OF PRESENT ILLNESS: This is a 77-year-old white male with past medical history of hypertension, depression, anxiety, trigeminal neuralgia, hyperlipidemia, and GERD. The patient was found with altered mental status after she was given night medication and brought here confused, speaks very softly, and not aware of the place. PAST MEDICAL HISTORY: Hypertension, trigeminal neuralgia, GERD, depression, anxiety, and hyperlipidemia. PAST SURGICAL HISTORY: Left hip surgery. ALLERGIES: TO PERCOCET. 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 PHYSICAL EXAMINATION VITAL SIGNS: Blood pressure 103/53. HEENT: Normocephalic, atraumatic. NECK: Supple. NEUROLOGIC: Awake and oriented to self only, not to the place and time. Cranial nerves: Pupils reactive. EOMs intact. Visual guo full. No facial asymmetry. Tongue midline. Motor examination: Increased tone and weakness on the right and also clonus to the right foot. Left upper and lower extremity 5/5. Sensory appears intact. Cerebellar, gait deferred. IMPRESSION: Encephalopathy, superimposed; possible toxic metabolic and CAT scan of head done which was reported negative. LABORATORY DATA: WBC 7.4, hemoglobin 11.6, hematocrit 35.2, and platelets 190. Sodium 138, potassium 3.9, chloride 102, CO2 28, glucose 110, BUN 15, and creatinine 0.6. IMPRESSION: Encephalopathy, toxic, metabolic, possibly polypharmacy. PLAN: Continue present management. We will follow up. We will do EEG. Murail Hagen MD
[2017-03-27 08:04] LABS: ALB/GLOB RATIO 1.4 (1.1-1.8); ALBUMIN 3.8 g/dL (3.0-4.8); ALT/SGPT 17 U/L (7-56); AST/SGOT 24 U/L (15-39); BLOOD UREA NITROGEN 12 mg/dL (7-21); CALCIUM 9.1 mg/dL (8.4-10.5); GFR AFRICAN-AMERICAN > 60; GFR NON-AFRICAN AMERICAN > 60; MAGNESIUM 1.8 mg/dL (1.7-2.2)
[2017-03-27 09:24] LABS: BASO # 0.02 K/mm3 (0.0-2.0); BASO % 0.3 % (0.0-3.0); EOS # 0.1 (0.0-0.7); EOS % 0.9 % (1.5-5.0); GRAN # 5.16 (1.4-6.5); GRAN % 67.6 % (50.0-68.0); HEMOGLOBIN 12.3 g/dL (12.0-16.0); LYMPH # 1.7 (1.2-3.4); LYMPH % 21.8 % (22.0-35.0); MEAN CELL VOLUME 93.2 fl (80.0-105.0); MEAN CORPUSCULAR HGB CONC 33.2 g/dl (31.0-37.0); MEAN PLATELET VOLUME 10.3 fl (7.0-11.0); MONO # 0.7 (0.1-0.6); MONO % 9.4 % (1.0-6.0); PLATELET COUNT 191 10^3/uL (120.0-450.0); RBC 3.97 10^6/uL (3.5-6.1); WHITE BLOOD COUNT 7.6 10^3/ul (4.5-11.0)
[2017-03-27] MEDS: Cholecalciferol 400 Intl Units Tab PO SCH (10:01)
[2017-03-27] MEDS: Docusate-Senna 50 mg-8.6 mg Tab PO SCH (10:01)
[2017-03-27] MEDS: Aspirin 325 mg EC Tablets PO SCH (10:02)
[2017-03-27] MEDS ORDERED: Potassium Chloride 20 mEq ER Tab PO ONE (11:04)
--- NOTE | 2017-03-27 12:50 | CP.PCM.PN ---
<Dilan Plummer - Last Filed: 03/27/17 12:51> Subjective - Date & Time of Evaluation Date of Evaluation: 03/27/17 Time of Evaluation: 12:46 - Subjective Subjective: Neurology progress note Pt seen and examined at bedside. As per nursing, patient has been more confused this morning than previous day. No acute events overnight. Patient is lethargic and minimally arousable at this time. Objective - Vital Signs/Intake and Output Vital Signs (last 24 hours): Temp Pulse Resp BP Pulse Ox 98 F 125 H 20 134/75 98 03/27/17 08:41 03/27/17 10:01 03/27/17 08:41 03/27/17 10:01 03/27/17 08:41 Intake and Output: 03/27/17 03/27/17 06:59 18:59 Intake Total 120 Output Total 350 Balance -230 - Medications Medications: Current Medications Aspirin (Ecotrin) 325 mg PO DAILY [facility] Last Admin: 03/27/17 10:02 Dose: 325 mg Calcium Carbonate (Caltrate) 600 mg PO DAILY [facility] Last Admin: 03/27/17 10:01 Dose: 600 mg Carbamazepine (Tegretol) 200 mg PO TID [facility] PRN Reason: Protocol Last Admin: 03/27/17 10:02 Dose: 200 mg Lorazepam (Ativan) 0.5 mg IVP Q6H PRN; Protocol PRN Reason: Anxiety Last Admin: 03/27/17 10:15 Dose: 0.5 mg Losartan Potassium (Cozaar) 25 mg PO DAILY [facility] Last Admin: 03/27/17 10:01 Dose: 25 mg Promethazine HCl (Phenergan Syrup) 12.5 mg PO Q6H PRN PRN Reason: GI DISTRESS Last Admin: 03/26/17 10:26 Dose: 12.5 mg Senna/Docusate Sodium (Senokot S 50 Mg-8.6 Mg) 1 tab PO DAILY [facility] Last Admin: 03/27/17 10:01 Dose: 1 tab Sertraline HCl (Zoloft) 100 mg PO HS [facility] Tramadol/Acetaminophen (Ultracet 37.5/325 Mg) 1 tab PO Q6 PRN PRN Reason: Pain, moderate (4-7) Trazodone HCl (Desyrel) 150 mg PO HS [facility] Vitamin D (Vitamin D 400 Intl Units Tab) 400 intlu PO DAILY [facility] Last Admin: 03/27/17 10:01 Dose: 400 intlu - Labs Labs: 03/27/17 09:00 03/27/17 07:00 PT 12.0 Seconds (9.9-11.8) H 03/25/17 22:50 INR 1.11 (0.93-1.08) H 03/25/17 22:50 APTT 28.2 Seconds (23.7-30.8) 03/25/17 22:50 - Constitutional Appears: Non-toxic, No Acute Distress - Head Exam Head Exam: ATRAUMATIC, NORMAL INSPECTION, NORMOCEPHALIC - Respiratory Exam Respiratory Exam: Clear to Ausculation Bilateral, NORMAL BREATHING PATTERN. absent: Rales, Rhonchi, Wheezes - Cardiovascular Exam Cardiovascular Exam: RRR, +S1, +S2 - GI/Abdominal Exam GI & Abdominal Exam: Soft, Normal Bowel Sounds. absent: Tenderness - Extremities Exam Extremities Exam: absent: Calf Tenderness, Pedal Edema - Neurological Exam Neurological Exam: Awake Additional comments: Unable to fully assess neurological status due to pt compliance - Skin Skin Exam: Intact, Normal Color, Warm Assessment and Plan - Assessment and Plan (Free Text) Plan: 77 y/o F with PMH significant for hyperlipidemia, hypertension, depression/ anxiety, trigeminal neuralgia and GERD presents with AMS. Pt received EEG yesterday which showed b/l cerebral dysfunction with no seizure activity. Pt will undergo Brain MRI to further assess for causes of AMS. Pt will be continue to be followed on the floor. Plan: Recommend Thiamine 100 PO BID Continue Tegretol for trigeminal neuralgia Maintain SBP 130-140 Avoid sedative medications Recommend tapering benzos Elian, PGY-2 <Parish Hagen - Last Filed: 03/27/17 16:47> Objective - Vital Signs/Intake and Output Vital Signs (last 24 hours): Temp Pulse Resp BP Pulse Ox 98.2 F 108 H 18 164/99 H 98 03/27/17 16:00 03/27/17 16:00 03/27/17 16:00 03/27/17 16:00 03/27/17 16:00 Intake and Output: 03/27/17 03/27/17 06:59 18:59 Intake Total 120 400 Output Total 350 Balance -230 400 - Medications Medications: Current Medications Aspirin (Ecotrin) 325 mg PO DAILY [facility] Last Admin: 03/27/17 10:02 Dose: 325 mg Calcium Carbonate (Caltrate) 600 mg PO DAILY [facility] Last Admin: 03/27/17 10:01 Dose: 600 mg Carbamazepine (Tegretol) 200 mg PO TID ZEINAB PRN Reason: Protocol Last Admin: 03/27/17 13:16 Dose: 200 mg Levofloxacin/Dextrose (Levaquin 500mg) 500 mg in 100 mls @ 100 mls/hr IVPB DAILY [facility] Lorazepam (Ativan) 0.5 mg IVP Q6H PRN; Protocol PRN Reason: Anxiety Last Admin: 03/27/17 10:15 Dose: 0.5 mg Losartan Potassium (Cozaar) 25 mg PO DAILY [facility] Last Admin: 03/27/17 10:01 Dose: 25 mg Promethazine HCl (Phenergan Syrup) 12.5 mg PO Q6H PRN PRN Reason: GI DISTRESS Last Admin: 03/26/17 10:26 Dose: 12.5 mg Senna/Docusate Sodium (Senokot S 50 Mg-8.6 Mg) 1 tab PO DAILY [facility] Last Admin: 03/27/17 10:01 Dose: 1 tab Sertraline HCl (Zoloft) 100 mg PO HS [facility] Tramadol/Acetaminophen (Ultracet 37.5/325 Mg) 1 tab PO Q6 PRN PRN Reason: Pain, moderate (4-7) Trazodone HCl (Desyrel) 150 mg PO HS [facility] Vitamin D (Vitamin D 400 Intl Units Tab) 400 intlu PO DAILY [facility] Last Admin: 03/27/17 10:01 Dose: 400 intlu - Labs Labs: 03/27/17 09:00 03/27/17 07:00 PT 12.0 Seconds (9.9-11.8) H 03/25/17 22:50 INR 1.11 (0.93-1.08) H 03/25/17 22:50 APTT 28.2 Seconds (23.7-30.8) 03/25/17 22:50 Attending/Attestation - Attestation I have personally seen and examined this patient.: Yes I have fully participated in the care of the patient.: Yes I have reviewed all pertinent clinical information, including history, physical exam and plan: Yes Notes (Text): 03/27/17 16:46 AMS LIKELY SECONDARY TO POLYPHARMACY SUPERIMPOSED UNDERLYING PSEUDODEMENTIA. MRI BRAIN TO ASSES FOR AN ACUTE ABNORMALITIES. THIAMINE 100MG PO BID. AVOID BZDS AND SEDATIVE MEDS FOR NOW. PSYCH CONSULT. THANKS. ROJELIO GLEASON
--- NOTE | 2017-03-27 13:06 | MRI ---
PROCEDURE: MRI BRAIN WITHOUT CONTRAST HISTORY: AMS, syncope COMPARISON: None. TECHNIQUE: Multiplanar, multisequence MR images of the brain were obtained without intravenous contrast enhancement. The study was limited by motion artifact. Fast T2 imaging and diffusion imaging were of diagnostic quality. The remainder the study was not. FINDINGS: HEMORRHAGE: None DWI: No evidence of an acute or early subacute infarction. BRAIN PARENCHYMA: No mass effect or edema. No atrophy or chronic microvascular ischemic changes. VENTRICLES: Unremarkable. No hydrocephalus. CRANIUM: Unremarkable. ORBITS: Grossly unremarkable. PARANASAL SINUSES/MASTOIDS: Clear VASCULAR SYSTEM: Skull base flow voids intact. OTHER FINDINGS: None. IMPRESSION: Limited study. No acute intracranial findings
--- NOTE | 2017-03-27 17:14 | CARD ---
APPROVED REPORT EXAM: Two-dimensional and M-mode echocardiogram with Doppler and color Doppler. INDICATION Syncope 2D DIMENSIONS Left Atrium (2D)3.1 (1.6-4.0cm)IVSd1.0 (0.7-1.1cm) LVDd3.2 (3.9-5.9cm)PWd1.0 (0.7-1.1cm) LVDs2.4 (2.5-4.0cm)FS (%) 26.9 % LVEF (%)53.9 (>50%) M-Mode DIMENSIONS Aortic Root2.50 (2.2-3.7cm)Aortic Cusp Exc.1.60 (1.5-2.0cm) Aortic Valve AoV Peak Majmnamr579.0cm/Hilda Peak GR.8mmHg Mitral Valve MV E Ylebnemo77.8cm/sMV A Uhokrphc16.7cm/sE/A ratio0.6 TDI E/Lateral E'0.0E/Medial E'0.0 Tricuspid Valve TR Peak [id number]/sRAP [id number] Peak Gr.9mmHg [id number] LEFT VENTRICLE The left ventricle is normal size. There is normal left ventricular wall thickness. The left ventricular function is normal.EF-55% There is normal LV segmental wall motion. Transmitral Doppler flow pattern is Grade III-reversible restrictive diastolic dysfunction. No left ventricle thrombus noted on this study. There is no ventricular septal defect visualized. There is no left ventricular aneurysm. There is no mass noted in the left ventricle. RIGHT VENTRICLE The right ventricle is normal size. There is normal right ventricular wall thickness. The right ventricular systolic function is normal. ATRIA The left atrium size is normal. The right atrium size is normal. The interatrial septum is intact with no evidence for an atrial septal defect. AORTIC VALVE The aortic valve is thickened but opens well. The aortic valve is mildly sclerotic. No aortic regurgitation is present. There is no aortic valvular stenosis. There is no aortic valvular vegetation. MITRAL VALVE The mitral valve is thickened but opens well. Mitral regurgitation is trace. There is no mitral valve stenosis. There is no evidence of mitral valve prolapse. TRICUSPID VALVE The tricuspid valve leaflets are thickened , but open well. There is trace tricuspid regurgitation.RVSP-19 mmof hg. There is no tricuspid valve stenosis. There is no tricuspid valve prolapse or vegetation. PULMONIC VALVE The pulmonary valve is normal in structure. There is trace pulmonic valvular regurgitation. There is no pulmonic valvular stenosis. GREAT VESSELS The aortic root is normal in size. The ascending aorta is normal in size. The pulmonary artery is normal. The IVC is normal in size and collapses >50% with inspiration. PERICARDIAL EFFUSION There is no pleural effusion. There is no pericardial effusion. <Conclusion> Normal Chamber Size. EF-55% Trace MR/TR RVSP-19 mmof Hg No vegetation or thrombus noted.
--- NOTE | 2017-03-27 18:31 | US ---
PROCEDURE: Bilateral carotid artery duplex ultrasound HISTORY: Carotid stenosis PHYSICIAN(S): Lefty Voss MD. TECHNIQUE: Duplex sonography and color-flow Doppler were used to evaluate the carotid bifurcations and limited segments of the vertebral arteries bilaterally. FINDINGS: There is mild smooth heterogeneous plaque noted at the carotid bifurcations bilaterally. The peak systolic velocity in the proximal right internal carotid artery is 64 cm/sec. This corresponds to a 20 to 39% proximal right ICA stenosis. Normal systolic velocities are noted in the proximal right external carotid artery. There is antegrade flow in the right vertebral artery. The peak systolic velocity in the proximal left internal carotid artery is 90 cm/sec. This corresponds to a 20 to 39% proximal left ICA stenosis. Normal systolic velocities are noted in the proximal left external carotid artery. There is antegrade flow in the atretic left vertebral artery. IMPRESSION: 1. Bilateral 20-39% proximal ICA stenoses. 2. Antegrade flow in both vertebral arteries.
--- NOTE | 2017-03-27 19:20 | CP.PCM.PN ---
Subjective - Date & Time of Evaluation Date of Evaluation: 03/27/17 Time of Evaluation: 07:15 - Subjective Subjective: Pt s/e bedside. Patient history difficult to obtain 2/2 mental status. No acute complaints right now. Per nursing, patient seems more confused today than yesterday. Neuro following. Objective - Vital Signs/Intake and Output Vital Signs (last 24 hours): Temp Pulse Resp BP Pulse Ox 98.2 F 108 H 18 164/99 H 98 03/27/17 16:00 03/27/17 16:00 03/27/17 16:00 03/27/17 16:00 03/27/17 16:00 Intake and Output: 03/27/17 03/27/17 06:59 18:59 Intake Total 120 400 Output Total 350 Balance -230 400 - Medications Medications: Current Medications Acetaminophen (Tylenol 325mg Tab) 650 mg PO Q6H PRN PRN Reason: Fever >100.4 F Aspirin (Ecotrin) 325 mg PO DAILY [facility] Last Admin: 03/27/17 10:02 Dose: 325 mg Calcium Carbonate (Caltrate) 600 mg PO DAILY [facility] Last Admin: 03/27/17 10:01 Dose: 600 mg Carbamazepine (Tegretol) 200 mg PO TID [facility] PRN Reason: Protocol Last Admin: 03/27/17 13:16 Dose: 200 mg Levofloxacin/Dextrose (Levaquin 500mg) 500 mg in 100 mls @ 100 mls/hr IVPB DAILY [facility] Lorazepam (Ativan) 0.5 mg IVP Q6H PRN; Protocol PRN Reason: Anxiety Last Admin: 03/27/17 17:14 Dose: 0.5 mg Losartan Potassium (Cozaar) 25 mg PO DAILY [facility] Last Admin: 03/27/17 10:01 Dose: 25 mg Promethazine HCl (Phenergan Syrup) 12.5 mg PO Q6H PRN PRN Reason: GI DISTRESS Last Admin: 03/26/17 10:26 Dose: 12.5 mg Senna/Docusate Sodium (Senokot S 50 Mg-8.6 Mg) 1 tab PO DAILY [facility] Last Admin: 03/27/17 10:01 Dose: 1 tab Sertraline HCl (Zoloft) 100 mg PO HS [facility] Tramadol/Acetaminophen (Ultracet 37.5/325 Mg) 1 tab PO Q6 PRN PRN Reason: Pain, moderate (4-7) Trazodone HCl (Desyrel) 150 mg PO HS [facility] Vitamin D (Vitamin D 400 Intl Units Tab) 400 intlu PO DAILY [facility] Last Admin: 03/27/17 10:01 Dose: 400 intlu - Labs Labs: 03/27/17 09:00 03/27/17 07:00 PT 12.0 Seconds (9.9-11.8) H 03/25/17 22:50 INR 1.11 (0.93-1.08) H 03/25/17 22:50 APTT 28.2 Seconds (23.7-30.8) 03/25/17 22:50 - Additional Findings Additional findings: Phys Exam: VS as below Constitutional: a&o x 0, nad Head and Neck: neck supple, no jvd, trachea midline, carotid midline, no cervical/head mass Eyes: reji, nonicteric sclera, eom intact ENT: auditory acuity grossly intact, throat not congested, no nasal deformity Cardio: rrr, no m/r/g, no carotid bruit, nml s1, s2 Pulm: no accessory muscle use, equal nml breath sounds bilaterally, ctab Abd: s/nt/nd, nbs x 4 q, no palpable masses Derm: no rashes, no ulcers, no lesions Extr: no edema, no cyanosis, no calf tenderness, no lesions, no varicosities Neuro: cn II-XII grossly intact, ue and le 5/5 muscle strength bilaterally, no los ue, le bilaterally and core Assessment and Plan - Assessment and Plan (Free Text) Assessment: 77 y/o F with PMH significant for hyperlipidemia, hypertension, depression/ anxiety, trigeminal neuralgia and GERD presents with AMS. Plan: 1. Altered Mental Status Possibly 2/2 UTI VS Polypharmacy VS Unknown Etiology - CT head in ED with no definite acute intracranial abnormality - EKG NSR, No ST segment elevations/depressions - Urine drug screen: positive for benzos, for which patient has a script - Urine Cx: positive for gram negative rods - EEG showed b/l cerebral dysfunction with no seizure activity. - Neuro consult: Plan: Recommend Thiamine 100 PO BID Continue Tegretol for trigeminal neuralgia Maintain SBP 130-140 Avoid sedative medications Recommend tapering benzos 2. UTI - Blood culture shows GNR's - Levaquin 3. Hyperlipidemia - Consider Statin initiation once AMS improves 4. Hx of HTN - Cozaar 5. Trigeminal neuralgia - Carbamazepine 6. GERD - Protonix 7. Depression - Hold Zoloft and Trazodone for now . GI/DVT ppx - Protonix - SCD's
[2017-03-28 06:50] LABS: BLOOD UREA NITROGEN 13 mg/dL (7-21); CALCIUM 9.3 mg/dL (8.4-10.5); GFR AFRICAN-AMERICAN > 60; GFR NON-AFRICAN AMERICAN > 60
[2017-03-28 06:51] LABS: ALB/GLOB RATIO 1.6 (1.1-1.8); ALT/SGPT 20 U/L (7-56); AST/SGOT 28 U/L (15-39)
[2017-03-28 08:26] VITALS: BP 103/61; PULSE 100; RESP 18; TEMP 98.1; O2SAT 96
[2017-03-28] MEDS: Aspirin 325 mg EC Tablets PO SCH (09:17)
[2017-03-28] MEDS: Docusate-Senna 50 mg-8.6 mg Tab PO SCH (09:18)
[2017-03-28] MEDS: Cholecalciferol 400 Intl Units Tab PO SCH (09:18)
[2017-03-28] MEDS ORDERED: levoFLOXacin 500 mg in D5W 500 MG/100 ML BAG IVPB SCH (10:00)
--- NOTE | 2017-03-28 10:16 | CP.PCM.PN ---
<Dilan Plummer - Last Filed: 03/28/17 13:03> Subjective - Date & Time of Evaluation Date of Evaluation: 03/28/17 Time of Evaluation: 10:09 - Subjective Subjective: Neurology Progress Note for Dr. Hagen Pt seen and examined at bedside. Pt doing well overnight with no acute events. Pt more alert today. Pt responding to commands appropriately. Objective - Vital Signs/Intake and Output Vital Signs (last 24 hours): Temp Pulse Resp BP Pulse Ox 98.1 F 100 H 18 103/61 96 03/28/17 08:25 03/28/17 09:17 03/28/17 08:25 03/28/17 09:17 03/28/17 08:25 Intake and Output: 03/28/17 03/28/17 06:59 18:59 Intake Total 120 Balance 120 - Medications Medications: Current Medications Acetaminophen (Tylenol 325mg Tab) 650 mg PO Q6H PRN PRN Reason: Fever >100.4 F Last Admin: 03/27/17 19:48 Dose: 650 mg Aspirin (Ecotrin) 325 mg PO DAILY [facility] Last Admin: 03/28/17 09:17 Dose: 325 mg Calcium Carbonate (Caltrate) 600 mg PO DAILY [facility] Last Admin: 03/28/17 09:17 Dose: 600 mg Carbamazepine (Tegretol) 200 mg PO TID [facility] PRN Reason: Protocol Last Admin: 03/28/17 09:17 Dose: 200 mg Levofloxacin/Dextrose (Levaquin 500mg) 500 mg in 100 mls @ 100 mls/hr IVPB DAILY [facility] Last Admin: 03/28/17 09:17 Dose: 100 mls/hr Lorazepam (Ativan) 0.5 mg IVP Q6H PRN; Protocol PRN Reason: Anxiety Last Admin: 03/28/17 01:10 Dose: 0.5 mg Losartan Potassium (Cozaar) 25 mg PO DAILY [facility] Last Admin: 03/28/17 09:17 Dose: 25 mg Promethazine HCl (Phenergan Syrup) 12.5 mg PO Q6H PRN PRN Reason: GI DISTRESS Last Admin: 03/26/17 10:26 Dose: 12.5 mg Senna/Docusate Sodium (Senokot S 50 Mg-8.6 Mg) 1 tab PO DAILY [facility] Last Admin: 03/28/17 09:18 Dose: 1 tab Sertraline HCl (Zoloft) 100 mg PO HS [facility] Tramadol/Acetaminophen (Ultracet 37.5/325 Mg) 1 tab PO Q6 PRN PRN Reason: Pain, moderate (4-7) Trazodone HCl (Desyrel) 150 mg PO HS [facility] Vitamin D (Vitamin D 400 Intl Units Tab) 400 intlu PO DAILY [facility] Last Admin: 03/28/17 09:18 Dose: 400 intlu - Labs Labs: 03/28/17 05:30 PT 12.0 Seconds (9.9-11.8) H 03/25/17 22:50 INR 1.11 (0.93-1.08) H 03/25/17 22:50 APTT 28.2 Seconds (23.7-30.8) 03/25/17 22:50 - Constitutional Appears: Non-toxic, No Acute Distress - Head Exam Head Exam: ATRAUMATIC, NORMAL INSPECTION, NORMOCEPHALIC - ENT Exam ENT Exam: Mucous Membranes Moist - Respiratory Exam Respiratory Exam: Clear to Ausculation Bilateral, NORMAL BREATHING PATTERN. absent: Rales, Rhonchi, Wheezes - Cardiovascular Exam Cardiovascular Exam: RRR, +S1, +S2 - GI/Abdominal Exam GI & Abdominal Exam: Soft, Normal Bowel Sounds. absent: Tenderness - Extremities Exam Extremities Exam: Normal Inspection. absent: Calf Tenderness, Pedal Edema - Neurological Exam Neurological Exam: Alert, Awake Additional comments: Right arm with increased tone and contracture. Oriented to person - Psychiatric Exam Psychiatric exam: Normal Affect, Normal Mood - Skin Skin Exam: Intact, Normal Color, Warm Assessment and Plan - Assessment and Plan (Free Text) Plan: 77 y/o F with PMH significant for hyperlipidemia, hypertension, depression/ anxiety, trigeminal neuralgia and GERD presents with AMS secondary to polypharmacy. Pt received EEG yesterday which showed b/l cerebral dysfunction with no seizure activity. Brain MRI negative at this time. Patient is improved from previous day and stable neurologically at this time. Will sign off, please reconsult as necessary. Plan: Brain MRI negative Recommend Thiamine Continue Tegretol Maintain SBP 130-140 Avoid sedative medications Recommend tapering benzos Elian, PGY-2 <Parish Hagen - Last Filed: 03/28/17 17:12> Objective - Vital Signs/Intake and Output Vital Signs (last 24 hours): Temp Pulse Resp BP Pulse Ox 98.1 F 100 H 18 103/61 96 03/28/17 08:25 03/28/17 09:17 03/28/17 08:25 03/28/17 09:17 03/28/17 08:25 Intake and Output: 03/28/17 03/28/17 06:59 18:59 Intake Total 120 Balance 120 - Labs Labs: 03/28/17 05:30 PT 12.0 Seconds (9.9-11.8) H 03/25/17 22:50 INR 1.11 (0.93-1.08) H 03/25/17 22:50 APTT 28.2 Seconds (23.7-30.8) 03/25/17 22:50 Attending/Attestation - Attestation I have personally seen and examined this patient.: Yes I have fully participated in the care of the patient.: Yes I have reviewed all pertinent clinical information, including history, physical exam and plan: Yes
--- NOTE | 2017-03-28 15:49 | CP.PCM.CON ---
History of Present Illness - History of Present Illness History of Present Illness: 77 year old female with PMH of HTN, dyslipidemia, depression, trigeminal neuralgia, GERD, S/P left hip surgery was initially admitted to [facility] because of confusion. Neurology has done work up and it is probably due to polypharmacy. Septic work up was done on admission which showing urine cx with E. coli. Infectious Diseases consult is requested to further evaluate and manage. There is no note of fever, no convulsions, no loss of consciousness, no diarrhea, no vomiting. 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 - HEENT Hx HEENT Problems: Yes Hx Difficulty Chewing: Yes - RENAL Hx Chronic Kidney Disease: No - ENDOCRINE/METABOLIC Hx Endocrine Disorders: No - HEMATOLOGICAL/ONCOLOGICAL Hx Blood Disorders: No - INTEGUMENTARY Hx Dermatological Problems: No - MUSCULOSKELETAL/RHEUMATOLOGICAL Hx Arthritis: Yes (rheumatoid arthritis) Hx Falls: No - GASTROINTESTINAL Hx Gastrointestinal Disorders: Yes (hemorrhoids) - GENITOURINARY/GYNECOLOGICAL Hx Incontinence: Yes - PSYCHIATRIC Hx Psychophysiologic Disorder: Yes Hx Anxiety: Yes Hx Depression: Yes Hx Substance Use: No - SURGICAL HISTORY Hx Orthopedic Surgery: Yes (right hip and left shoulder, left leg with metal) Other/Comment: metal implants - ANESTHESIA Hx Anesthesia Reactions: No Hx Malignant Hyperthermia: No Meds Home Medications: Home Medication List Medication Instructions Recorded Confirmed Type Levofloxacin [Levaquin] 500 mg PO DAILY #5 tablet 03/28/17 Rx Allergies/Adverse Reactions: Allergies Allergy/AdvReac Type Severity Reaction Status Date / Time oxycodone HCl [From Percocet] AdvReac Intermediate DIZZINESS Verified 11/04/16 22:57 - Medications Medications: Current Medications Acetaminophen (Tylenol 325mg Tab) 650 mg PO Q6H PRN PRN Reason: Fever >100.4 F Last Admin: 03/27/17 19:48 Dose: 650 mg Aspirin (Ecotrin) 325 mg PO DAILY [facility] Last Admin: 03/28/17 09:17 Dose: 325 mg Calcium Carbonate (Caltrate) 600 mg PO DAILY [facility] Last Admin: 03/28/17 09:17 Dose: 600 mg Carbamazepine (Tegretol) 200 mg PO TID [facility] PRN Reason: Protocol Last Admin: 03/28/17 09:17 Dose: 200 mg Levofloxacin/Dextrose (Levaquin 500mg) 500 mg in 100 mls @ 100 mls/hr IVPB DAILY [facility] Last Admin: 03/28/17 09:17 Dose: 100 mls/hr Lorazepam (Ativan) 0.5 mg IVP Q6H PRN; Protocol PRN Reason: Anxiety Last Admin: 03/28/17 01:10 Dose: 0.5 mg Losartan Potassium (Cozaar) 25 mg PO DAILY [facility] Last Admin: 03/28/17 09:17 Dose: 25 mg Promethazine HCl (Phenergan Syrup) 12.5 mg PO Q6H PRN PRN Reason: GI DISTRESS Last Admin: 03/26/17 10:26 Dose: 12.5 mg Senna/Docusate Sodium (Senokot S 50 Mg-8.6 Mg) 1 tab PO DAILY [facility] Last Admin: 03/28/17 09:18 Dose: 1 tab Sertraline HCl (Zoloft) 100 mg PO HS [facility] Tramadol/Acetaminophen (Ultracet 37.5/325 Mg) 1 tab PO Q6 PRN PRN Reason: Pain, moderate (4-7) Trazodone HCl (Desyrel) 150 mg PO HS [facility] Vitamin D (Vitamin D 400 Intl Units Tab) 400 intlu PO DAILY [facility] Last Admin: 03/28/17 09:18 Dose: 400 intlu Physical Exam - Constitutional Appears: Non-toxic, No Acute Distress - Head Exam Head Exam: NORMAL INSPECTION - ENT Exam ENT Exam: Mucous Membranes Moist - Neck Exam Neck exam: Negative for: Meningismus - Respiratory Exam Respiratory Exam: Decreased Breath Sounds - Cardiovascular Exam Cardiovascular Exam: +S1, +S2 - GI/Abdominal Exam GI & Abdominal Exam: Soft. absent: Tenderness Results - Vital Signs Recent Vital Signs: Last Vital Signs Temp 98.1 F 03/28/17 08:25 Pulse 100 H 03/28/17 09:17 Resp 18 03/28/17 08:25 BP 103/61 03/28/17 09:17 Pulse Ox 96 03/28/17 08:25 - Labs Result Diagrams: 03/27/17 09:00 03/28/17 05:30 Labs: Laboratory Results - last 24 hr 03/28/17 05:30 Sodium 140 Potassium 3.8 Chloride 102 Carbon Dioxide 28 Anion Gap 14 BUN 13 Creatinine 0.5 Est GFR ( Amer) > 60 Est GFR (Non-Af Amer) > 60 Random Glucose 95 Calcium 9.3 Total Bilirubin 0.4 AST 28 ALT 20 Alkaline Phosphatase 128 Total Protein 6.5 Albumin 4.0 Globulin 2.5 Albumin/Globulin Ratio 1.6 Assessment & Plan - Assessment and Plan (Free Text) Plan: Assessment E. coli bacteriuria, probably UTI altered mental status probably from polypharmacy HTN dyslipidemia depression trigeminal neuralgia GERD S/P left hip surgery Plan PAtient can be on PO Ciprofloxacin for 5 days with outpatient follow up with PMD
--- NOTE | 2017-03-28 19:15 | CON ---
Chart reviewed and case discussed with nursing and with patient's Swedish speaking daughter Preet Dumont. HISTORY OF PRESENT ILLNESS: The patient is a 77-year-old white female with a past history of hypertension, trigeminal neuralgia, hyperlipidemia and GERD. She was found with "altered mental status"and she had been given medication and with her family thinking she had . The patient on admission was confused and disoriented to place. Her daughter informs me that the patient is [place] who had come to the [facility] this past July because the other daughter that she had been living with (whom I had spoken to briefly but who could not speak Swedish - Venus Huynh) could no longer care for her because the mother was falling. The patient is a high school graduate who had worked for a period of time. She had been briefly to the man who is the father of her two daughters both of whom I have been in touch with and who have been involved in her care. She subsequently, another man and was for some what longer period of time, but was from him also. He recently. The patient presently appears to be constricted and limited because of the language barrier. Nonetheless, she appears bradykinetic, has been reportedly confused and depressed. She has been treated for depression by her PMD and previously placed on Zoloft 100 mg and trazodone 100 mg. She is also on Neurontin 300 mg daily and Tegretol 200 mg bedtime as well as Tegretol 200 mg XR b.i.d., she is also on baclofen 10 mg daily. These may be to treat her trigeminal neuralgia. The patient does not have a prior psychiatric or substance abuse history. The patient appeared confused in my interaction with her. The patient's affect appears not only constricted to me but somewhat bizarre, she appears to be also exhibiting some dyskinetic movements (possibly ). I have conveyed my thoughts to nursing and to the daughter, but the daughter wants to take the patient home. She will follow up with me on an outpatient basis. 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 The patient had an EEG yesterday which showed bilateral cerebral dysfunction with no seizure activity. Lloyd Sotelo MD/ [facility] # [id number]
--- NOTE | 2017-03-29 06:20 | DS ---
HISTORY OF PRESENT ILLNESS: She is resting comfortably in bed. She still has the same complaints of pains in the arms. She is at home on hospice and comfort care. I was away on vacation, Dr. Watson was covering me. Not sure why she was admitted except that I gave her too much medications and by the time she got to the emergency room, she was back for baseline, but she was kept on multiple consults; infectious disease, psych, neurology. She is a 77-year-old female who is bedridden at home on comfort care hospice. Same complaints ensue back for baseline mentally. PHYSICAL EXAMINATION: VITAL SIGNS: 98.1 temperature, 100 pulse, 103/61 blood pressure, 18 respiratory rate, 96% O2 sat on room air. HEENT: Head is atraumatic and normocephalic. HEART: Regular rate. LUNGS: Clear to auscultation. ABDOMEN: Soft. EXTREMITIES: No edema. GENERAL: Right-sided weakness. MEDICATIONS: She is almost on the same medications; Levaquin 500 daily for 5 days, Ativan, Caltrate, Cozaar, Desyrel, and Ecotrin. Cough medicines as needed; Senokot, Tegretol, Tylenol, Ultram as needed, vitamin D, Zoloft. LABORATORY DATA: She had a 7.6 white count, 12.3 hemoglobin, 191 platelets. 147 sodium, potassium 3.8, BUN is 13, creatinine is 0.5, GFR is greater than 60, sugar is 95, calcium is 9.3. AST is 20, ALT is 20, alkaline phosphatase is 120, total protein 6.5. TSH is 1.07. Urine is clean. Negative RPR. ASSESSMENT AND PLAN: She will be discharged home, to the hospice. Levaquin for 5 days for UTI. Chau Cardenas DO
== END 2017-03-28 16:07 | disposition hospice, home (50) | DRG 947 ==
LOC: ED 22:42 → ERH 03-26 01:23 → 3RSO 03-26 03:53 → OBSVTOIN 03-27 15:36
PROVIDERS: ADMIT Family Medicine; ATTEND Family Medicine
DX: R41.82 Altered mental status, unspecified (principal); G92 Toxic encephalopathy; T50.995A Adverse effect of other drugs, medicaments and biological substances, initial encounter; N39.0 Urinary tract infection, site not specified; I10 Essential (primary) hypertension; K21.9 Gastro-esophageal reflux disease without esophagitis; G50.0 Trigeminal neuralgia; F32.9 Major depressive disorder, single episode, unspecified; E78.5 Hyperlipidemia, unspecified; F41.9 Anxiety disorder, unspecified; B96.20 Unspecified Escherichia coli [E. coli] as the cause of diseases classified elsewhere; Z51.5 Encounter for palliative care; Z79.82 Long term (current) use of aspirin; Z74.01 Bed confinement status

== ENCOUNTER 2017-11-05 22:01 | Observation (INO) | payer MEDICARE, BC ==
--- NOTE | 2017-11-05 23:09 | ED PDOC ---
Arrival/HPI - General Chief Complaint: GI Problem Time Seen by Provider: 11/05/17 22:29 Historian: Patient, Family - History of Present Illness Narrative History of Present Illness (Text): 11/05/17 23:08 A 77 year old female, whose past medical history includes hyperlipidemia, hypertension, GERD, depression/anxiety and trigeminal neuralgia, presents to the emergency department for evaluation of vomiting and abdominal pain. Patient was brought in by daughters. Limited History and ROS. Denies any other complaints at this time. 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 - HEENT Hx HEENT Disorder: Yes Hx Difficulty Chewing: Yes - Renal Hx Renal Disorder: No - Endocrine/Metabolic Hx Endocrine Disorders: No - Hematological/Oncological Hx Blood Disorders: No - Integumentary Hx Dermatological Disorder: No - Musculoskeletal/Rheumatological Hx Arthritis: Yes (rheumatoid arthritis) Hx Falls: No - Gastrointestinal Hx Gastrointestinal Disorders: Yes (hemorrhoids) Hx Gastroesophageal Reflux: Yes - Genitourinary/Gynecological Hx Incontinence: Yes - Psychiatric Hx Psychophysiologic Disorder: Yes Hx Anxiety: Yes Hx Depression: Yes Hx Substance Use: No - Surgical History Hx Orthopedic Surgery: Yes (right hip and left shoulder, left leg with metal) Other/Comment: metal implants - Anesthesia Hx Anesthesia Reactions: No Hx Malignant Hyperthermia: No Family/Social History - Physician Review Nursing Documentation Reviewed: Yes Family/Social History: No Known Family HX Smoking Status: Never Smoked Hx Alcohol Use: No Hx Substance Use: No Allergies/Home Meds Allergies/Adverse Reactions: Allergies oxycodone HCl [From Percocet] Adverse Reaction (Intermediate, Verified 11/05/17 22:46) DIZZINESS Home Medications: Home Meds Medication Instructions Recorded Confirmed Aspirin [Aspirin EC] 81 mg PO DAILY 09/18/16 11/06/17 Sertraline [Zoloft] 100 mg PO HS 09/18/16 03/26/17 traZODone [Desyrel] 200 mg PO HS 09/18/16 03/26/17 Pantoprazole [Protonix EC Tab] 40 mg PO DAILY 11/04/16 11/06/17 Atorvastatin [Lipitor] 20 mg PO DAILY 03/26/17 03/26/17 Baclofen [Lioresal] 10 mg PO DAILY 03/26/17 03/26/17 Calcium Carbonate/Vitamin D3 1 tab PO DAILY 03/26/17 03/26/17 [Calcium 600+D Softgel] Gabapentin [Neurontin] 300 mg PO DAILY 03/26/17 03/26/17 Losartan [Cozaar] 25 mg PO DAILY 03/26/17 03/26/17 Promethazine [Phenergan] 12.5 mg PO Q6 PRN 03/26/17 03/26/17 Ranitidine HCl [Zantac] 150 mg PO BID 03/26/17 03/26/17 Sennosides/Docusate Sodium [Senna 2 tab PO DAILY 03/26/17 03/26/17 S Tablet] Temazepam [Restoril] 30 mg PO HS 03/26/17 11/06/17 Tramadol HCl/Acetaminophen 50 mg PO BID PRN 03/26/17 03/26/17 [Tramadol-Acetaminophn 37.5-325] carBAMazepine [Tegretol] 200 mg PO HS 03/26/17 11/06/17 carBAMazepine [TEGretol-XR] 100 mg PO BID 11/06/17 Review of Systems - Review of Systems Systems not reviewed;Unavailable: Acuity of Condition Constitutional: Normal Eyes: Normal ENT: Normal Respiratory: Normal Cardiovascular: Normal Gastrointestinal: Abdominal Pain, Vomiting Genitourinary Female: Normal Musculoskeletal: Normal Skin: Normal Neurological: Normal Endocrine: Normal Hemo/Lymphatic: Normal Psychiatric: Normal Physical Exam - Physical Exam Physical Exam Limitations: Clinical Condition Vital Signs Reviewed: Yes Vital Signs Temp Pulse Resp BP Pulse Ox 11/06/17 04:31 98.6 F 109 H 17 148/86 100 11/06/17 03:04 110 H 18 125/77 100 11/05/17 22:46 98.1 F 74 19 128/69 97 Temperature: Afebrile Blood Pressure: Normal Pulse: Regular Respiratory Rate: Normal Appearance: Positive for: Well-Appearing Pain Distress: None Mental Status: Positive for: Alert and Oriented X 3 - Systems Exam Head: Present: Atraumatic, Normocephalic Pupils: Present: PERRL Extroacular Muscles: Present: EOMI Conjunctiva: Present: Normal Mouth: Present: Moist Mucous Membranes Neck: Present: Normal Range of Motion Respiratory/Chest: Present: Clear to Auscultation, Good Air Exchange. No: Respiratory Distress, Accessory Muscle Use Cardiovascular: Present: Regular Rate and Rhythm, Normal S1, S2. No: Murmurs Abdomen: No: Tenderness, Distention, Peritoneal Signs Back: Present: Normal Inspection Upper Extremity: Present: Normal Inspection. No: Cyanosis, Edema Lower Extremity: Present: Normal Inspection. No: Edema Neurological: Present: GCS=15, CN II-XII Intact, Speech Normal Skin: Present: Warm, Dry, Normal Color. No: Rashes Psychiatric: Present: Alert, Oriented x 3, Normal Insight, Normal Concentration Medical Decision Making ED Course and Treatment: 11/05/17 23:07 Impression: A 77 year old female with abdominal pain and vomiting. Plan: -- EKG -- CT abd/pelvis -- labs -- Urinalysis -- Reassess and disposition Prior Visits: Notes and results from previous visits were reviewed. Patient was last seen in the emergency department on 03/25/17 for evaluation of AMS. Progress Notes: 11/05/17 23:25 EKG: Ordered, reviewed, and independently interpreted the EKG. Rate : 77 BPM Rhythm : NSR Interpretation : normal intervals, normal axis CT Abdomen and Pelvis With Intravenous Contrast FINDINGS: Artifacts: Limited due to artifact from patient's arms overlying the patient. Lower thorax: There is bibasilar atelectasis. There is bibasilar atelectasis. Cardiomegaly. ABDOMEN: Liver: Fatty liver. Gallbladder and bile ducts: Unremarkable. No ductal dilation. Pancreas: Unremarkable. No mass. No ductal dilation. Spleen: Unremarkable. No splenomegaly. Adrenals: Unremarkable. No mass. Kidneys and ureters: Right renal cysts. No hydronephrosis. Stomach and bowel: Diverticulosis. Large amount of stool in the colon. Correlation with patient's clinical history of constipation is recommended. No mucosal thickening. Appendix: Normal appendix. PELVIS: Bladder: Partially distended bladder. Limited evaluation due to artifact. Reproductive: There is endometrial canal distention. In view of patient's postmenopausal status non-emergent gynecology evaluation is recommended. Uterus is seen. ABDOMEN and PELVIS: Intraperitoneal space: Unremarkable. No free air. No significant fluid collection. 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 There is moderate compression fracture deformity of L4 which is new when compared to prior examination from November 04, 2016. There is stable moderate compression fracture deformity of T11. No dislocation. Soft tissues: Unremarkable. Vasculature: The aorta demonstrates calcified plaque and is mildly ectatic but normal in caliber. Pelvic phleboliths. No abdominal aortic aneurysm. Lymph nodes: Unremarkable. No enlarged lymph nodes. IMPRESSION: 1.Large amount of stool in the colon. Correlation with patient's clinical history of constipation is recommended. 2. There is endometrial canal distention. In view of patient's postmenopausal status non-emergent gynecology evaluation is recommended. Correlation with internal medicine evaluation and further workup or followup as recommended by patient's clinical data. Dictated and Authenticated by: Azalia Griffith MD 11/06/2017 1:24 AM Eastern Time ([place] & [place]) 11/06/17 02:45 Spoke with PMD, Dr. Cardenas, who accepts and agrees for patient to be admitted. - Lab Interpretations Microbiology Results: Microbiology Results 11/05/17 23:50 Blood-Venous Blood Culture - Final NO GROWTH AFTER 5 DAYS 11/05/17 23:50 Blood-Venous Gram Stain - Final TEST NOT PERFORMED 11/05/17 23:43 Blood-Venous Blood Culture - Final NO GROWTH AFTER 5 DAYS 11/05/17 23:43 Blood-Venous Gram Stain - Final TEST NOT PERFORMED 11/06/17 01:30 Urine,Catheterized Urine Culture - Final <10,000 CFU/ML. MULTIPLE SPECIES. PROBABLE CONTAMINATION. Lab Results: 11/05/17 23:43 11/05/17 23:43 Lab Results 11/06/17 01:30: Urine Color Yellow, Urine Appearance Cloudy, Urine pH 8.0, Ur Specific [place] 1.010, Urine Protein Negative, Urine Glucose (UA) Negative, Urine Ketones Negative, Urine Blood Negative, Urine Nitrate Negative, Urine Bilirubin Negative, Urine Urobilinogen 0.2, Ur Leukocyte Esterase Negative 11/05/17 23:43: Sodium 143, Potassium 3.7, Chloride 104, Carbon Dioxide 32, Anion Gap 11, BUN 11, Creatinine 0.6 L, Est GFR ( Amer) > 60, Est GFR ( Non-Af Amer) > 60, Random Glucose 121 H, Calcium 9.5, Total Bilirubin 0.2, AST 21, ALT 24, Alkaline Phosphatase 96, Lactate Dehydrogenase 462, Total Creatine Kinase 30 L, Troponin I < 0.01, Total Protein 6.2, Albumin 3.5, Globulin 2.7, Albumin/Globulin Ratio 1.3, Amylase 48, Lipase 74 11/05/17 23:43: PT 11.8, INR 1.03, APTT 27.5 11/05/17 23:43: WBC 7.5, RBC 3.84, Hgb 11.7 L, Hct 36.3, MCV 94.5, MCH 30.5, MCHC 32.2, RDW 14.2, Plt Count 187, MPV 9.4, Gran % 77.0 H, Lymph % (Auto) 15.0 L, [place] % (Auto) 7.6 H, Eos % (Auto) 0.1 L, Baso % (Auto) 0.3, Gran # 5.78, Lymph # (Auto) 1.1 L, [place] # (Auto) 0.6, Eos # (Auto) 0.0, Baso # (Auto) 0.02 I have reviewed the lab results: Yes - RAD Interpretation Radiology Orders: 11/06/17 00:25 ABD & PELVIS IV CONTRAST ONLY [CT] Stat - EKG Interpretation Interpreted by ED Physician: Yes Type: 12 lead EKG - Medication Orders Current Medication Orders: Discontinued Medications Acetaminophen (Tylenol 325mg Tab) 650 mg PO Q4H PRN PRN Reason: Pain, Mild (1-3) Acetaminophen (Tylenol 325mg Tab) 650 mg PO Q4H PRN PRN Reason: Temperature Aspirin (Ecotrin) 81 mg PO DAILY [facility] Last Admin: 11/07/17 09:53 Dose: 81 mg Atorvastatin Calcium (Lipitor) 20 mg PO DAILY [facility] Last Admin: 11/07/17 09:54 Dose: 20 mg Baclofen (Lioresal) 10 mg PO DAILY [facility] Last Admin: 11/07/17 09:54 Dose: 10 mg Bisacodyl (Dulcolax) 10 mg RC ONCE ONE Stop: 11/06/17 08:52 Last Admin: 11/06/17 09:36 Dose: 10 mg Bisacodyl (Dulcolax) 10 mg PO ONCE ONE Stop: 11/06/17 09:02 Last Admin: 11/06/17 09:36 Dose: Not Given Non-Admin Reason: NPO Carbamazepine (Tegretol) 200 mg PO HS [facility] PRN Reason: Protocol Last Admin: 11/06/17 22:31 Dose: Not Given Non-Admin Reason: Patient Refused Gabapentin (Neurontin) 300 mg PO DAILY ZEINAB PRN Reason: Protocol Last Admin: 11/07/17 09:54 Dose: 300 mg Behavioural Document 11/07/17 09:54 LO (Rec: 11/07/17 09:55 LO [email or web address]) Maintenance Maintenance Dose Yes Nonmedicinal Nonmedicinal Interventions Redirect Therapeutic Communication Behavior Behavior for Medication: Anxiety Home Med (Home Med) 1 unit PO [facility] Last Admin: 11/06/17 22:32 Dose: Not Given Non-Admin Reason: Patient Refused Sodium Chloride (Sodium Chloride 0.9%) 1,000 mls @ 80 mls/hr IV .[id number] [facility] Last Admin: 11/06/17 01:06 Dose: 80 mls/hr eMAR Start Stop Document 11/06/17 01:06 IT (Rec: 11/06/17 01:07 IT [id number]) Intravenous Solution Start Date 11/06/17 Start Time 01:07 Sodium Chloride (Sodium Chloride 0.9%) 1,000 mls @ 100 mls/hr IV .Q10H STA Stop: 11/06/17 13:28 Last Admin: 11/06/17 04:09 Dose: 100 mls/hr eMAR Start Stop Document 11/06/17 04:09 IT (Rec: 11/06/17 04:10 IT [id number]) Intravenous Solution Start Date 11/06/17 Start Time 04:10 Pantoprazole Sodium (Protonix 40mg Ivpb) 40 mg in 100 mls @ 200 mls/hr IVPB 0600 [facility] Last Admin: 11/07/17 05:22 Dose: 200 mls/hr eMAR Start Stop Document 11/07/17 05:22 MV (Rec: 11/07/17 05:22 MV [email or web address]) Intravenous Solution Start Date 11/07/17 Start Time 05:22 End Date 11/07/17 End time 05:52 Total Infusion Time 30 Potassium Chloride (Potassium Chloride 20 Meq/100 Ml) 20 meq in 100 mls @ 50 mls/hr IVPB ONCE ONE Stop: 11/07/17 11:00 Last Admin: 11/07/17 09:55 Dose: 50 mls/hr eMAR Start Stop Document 11/07/17 09:55 LO (Rec: 11/07/17 09:55 LO [email or web address]) Intravenous Solution Start Date 11/07/17 Start Time 09:55 End Date 11/07/17 End time 11:55 Total Infusion Time 120 Losartan Potassium (Cozaar) 25 mg PO DAILY [facility] Last Admin: 11/07/17 09:52 Dose: 25 mg MAR Pulse and Blood Pressure Document 11/07/17 09:52 LO (Rec: 11/07/17 09:53 LO [email or web address]) Pulse Pulse Rate (60-90) 68 Blood Pressure Blood Pressure (100/60-150/90) 133/65 Mineral Oil (Fleet Mineral Oil Enema) 135 ml RC ONCE ONE Stop: 11/06/17 09:02 Last Admin: 11/06/17 10:16 Dose: 135 ml Morphine Sulfate (Morphine) 1 mg IVP Q3 ZEINAB Last Admin: 11/06/17 12:10 Dose: Morphine Sulfate (Morphine) 1 mg IVP Q3 PRN PRN Reason: Pain, moderate (4-7) Morphine Sulfate (Morphine) 1 mg IVP Q3 PRN PRN Reason: Pain, moderate (4-7) Last Admin: 11/06/17 12:29 Dose: 1 mg KARL Pain Assessment Document 11/06/17 12:29 SOUSV (Rec: 11/06/17 12:30 SOUSV [id number]) Pain Reassessment Is this a pain reassessment? No Presence of Pain Presence of Pain Yes Pain Scale Used Pain Scale Used FLACC Location Pain Location Body Site Abdomen Generalized Description Pain Behavior Moaning Guarding Irritability Alleviating Factors/Management Medication Techniques Position Change Alleviating Factors Medication IVP Administration Document 11/06/17 12:29 SOUSV (Rec: 11/06/17 12:30 SOUSV [id number]) Charges for Administration # of IVP Administrations 1 Re-Assess: KARL Pain Assessment Document 11/06/17 13:29 SOUSV (Rec: 11/06/17 13:47 SOUSV [email or web address]) Pain Reassessment Is this a pain reassessment? Yes Sleep Is patient sleeping during reassessment? No Presence of Pain Presence of Pain No Non-Formulary Medication (Calcium Carbonate/Vitamin D3 [Calcium 600+D Softgel]) 1 tab PO DAILY [facility] Last Admin: 11/06/17 12:48 Dose: Non-Formulary Medication (Carbamazepine [Tegretol-Xr]) 100 mg PO BID [facility] Last Admin: 11/07/17 09:52 Dose: Non-Formulary Medication (Calcium Carbonate/Vitamin D3 [Calcium 600+D Softgel]) 1 tab PO DAILY [facility] Last Admin: 11/07/17 09:51 Dose: 1 tab Ondansetron HCl (Zofran Inj) 4 mg IVP STAT STA Stop: 11/06/17 00:18 Last Admin: 11/06/17 01:08 Dose: 4 mg IVP Administration Document 11/06/17 01:08 IT (Rec: 11/06/17 01:08 IT [id number]) Charges for Administration # of IVP Administrations 1 Ondansetron HCl (Zofran Inj) 4 mg IVP Q6H PRN PRN Reason: Nausea/Vomiting Last Admin: 11/06/17 08:02 Dose: 4 mg IVP Administration Document 11/06/17 08:02 SOUSV (Rec: 11/06/17 08:02 SOUSV [id number]) Charges for Administration # of IVP Administrations 1 Polyethylene Glycol (Miralax) 17 gm PO BID [facility] Last Admin: 11/07/17 09:54 Dose: 17 gm Potassium Chloride (K-Dur 20 Meq Er Tab) 40 meq PO BRK [facility] Sertraline HCl (Zoloft) 100 mg PO [facility] Last Admin: 11/06/17 22:34 Dose: Not Given Non-Admin Reason: Patient Refused Trazodone HCl (Desyrel) 200 mg PO [facility] Last Admin: 11/06/17 22:32 Dose: Not Given Non-Admin Reason: Patient Refused - Scribe Statement The provider has reviewed the documentation as recorded by the Amena Metcalf Provider Scribe Attestation: All medical record entries made by the Scribe were at my direction and personally dictated by me. I have reviewed the chart and agree that the record accurately reflects my personal performance of the history, physical exam, medical decision making, and the department course for this patient. I have also personally directed, reviewed, and agree with the discharge instructions and disposition. Disposition/Present on Arrival - Present on Arrival Any Indicators Present on Arrival: No History of DVT/PE: No History of Uncontrolled Diabetes: No Urinary Catheter: No History of Decub. Ulcer: No History Surgical Site Infection Following: None - Disposition Have Diagnosis and Disposition been Completed?: Yes Diagnosis: Intractable vomiting Disposition: HOSPITALIZED Disposition Time: 02:45 Condition: FAIR
[2017-11-06 00:03] LABS: BASO # 0.02 K/mm3 (0.0-2.0); BASO % 0.3 % (0.0-3.0); EOS % 0.1 % (1.5-5.0); GRAN # 5.78 (1.4-6.5); HEMOGLOBIN 11.7 g/dL (12.0-16.0); LYMPH # 1.1 (1.2-3.4); MEAN CELL VOLUME 94.5 fl (80.0-105.0); MEAN CORPUSCULAR HEMOGLOBIN 30.5 pg (25.0-35.0); MEAN CORPUSCULAR HGB CONC 32.2 g/dl (31.0-37.0); MEAN PLATELET VOLUME 9.4 fl (7.0-11.0); MONO # 0.6 (0.1-0.6); MONO % 7.6 % (1.0-6.0); RBC 3.84 10^6/uL (3.5-6.1); RED CELL DISTRIBUTION WIDTH 14.2 % (11.5-14.5); WHITE BLOOD COUNT 7.5 10^3/ul (4.5-11.0)
[2017-11-06 00:09] LABS: ALB/GLOB RATIO 1.3 (1.1-1.8); ALBUMIN 3.5 g/dL (3.0-4.8); ALT/SGPT 24 U/L (7-56); AMYLASE 48 U/L (35-125); AST/SGOT 21 U/L (14-36); BLOOD UREA NITROGEN 11 mg/dL (7-21); CALCIUM 9.5 mg/dL (8.4-10.5); GFR AFRICAN-AMERICAN > 60; GFR NON-AFRICAN AMERICAN > 60; LIPASE 74 U/L (23-300)
[2017-11-06 00:19] LABS: INR 1.03 (0.93-1.08); PARTIAL THROMBOPLASTIN TIME 27.5 Seconds (25.1-36.5); PROTHROMBIN TIME 11.8 SECONDS (9.4-12.5); TROPONIN I < 0.01 ng/mL
[2017-11-06] MEDS ORDERED: Sodium Chloride 0.9% 1,000 ML IV SCH (00:30)
[2017-11-06] MEDS ORDERED: Iohexol 350 MG/100 ML VIAL ONE (00:35)
--- NOTE | 2017-11-06 01:25 | CT ---
EXAM: CT Abdomen and Pelvis With Intravenous Contrast CLINICAL HISTORY: 77 years old, female; Pain; Abdominal pain; Generalized; Additional info: Abd pain TECHNIQUE: Axial computed tomography images of the abdomen and pelvis with intravenous contrast. All CT scans at this facility use one or more dose reduction techniques, viz.: automated exposure control; ma/kV adjustment per patient size (including targeted exams where dose is matched to indication; i.e. head); or iterative reconstruction technique. 635 images are submitted. Coronal and sagittal reformatted images were created and reviewed. Axial reformatted images were created and reviewed. CONTRAST: 96 mL of OMNI 350 administered intravenously. COMPARISON: CT - ABD PELVIS PO IV CONTRAST 2016-11-04 20:50 FINDINGS: Artifacts: Limited due to artifact from patient's arms overlying the patient. Lower thorax: There is bibasilar atelectasis. There is bibasilar atelectasis. Cardiomegaly. ABDOMEN: Liver: Fatty liver. Gallbladder and bile ducts: Unremarkable. No ductal dilation. Pancreas: Unremarkable. No mass. No ductal dilation. Spleen: Unremarkable. No splenomegaly. Adrenals: Unremarkable. No mass. Kidneys and ureters: Right renal cysts. No hydronephrosis. Stomach and bowel: Diverticulosis. Large amount of stool in the colon. Correlation with patient's clinical history of constipation is recommended. No mucosal thickening. Appendix: Normal appendix. PELVIS: Bladder: Partially distended bladder. Limited evaluation due to artifact. Reproductive: There is endometrial canal distention. In view of patient's postmenopausal status non-emergent gynecology evaluation is recommended. Uterus is seen. ABDOMEN and PELVIS: Intraperitoneal space: Unremarkable. No free air. No significant fluid collection. 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 There is moderate compression fracture deformity of L4 which is new when compared to prior examination from November 04, 2016. There is stable moderate compression fracture deformity of T11. No dislocation. Soft tissues: Unremarkable. Vasculature: The aorta demonstrates calcified plaque and is mildly ectatic but normal in caliber. Pelvic phleboliths. No abdominal aortic aneurysm. Lymph nodes: Unremarkable. No enlarged lymph nodes. IMPRESSION: 1.Large amount of stool in the colon. Correlation with patient's clinical history of constipation is recommended. 2. There is endometrial canal distention. In view of patient's postmenopausal status non-emergent gynecology evaluation is recommended. Correlation with internal medicine evaluation and further workup or followup as recommended by patient's clinical data.
[2017-11-06 02:40] LABS: URINE BILIRUBIN NEGATIVE (NEGATIVE); URINE BLOOD NEGATIVE (NEGATIVE); URINE GLUCOSE (UA) NEGATIVE (NEGATIVE); URINE LEUKOCYTE ESTERASE NEGATIVE Leu/uL (NEGATIVE); URINE PROTEIN NEGATIVE mg/dL (<30 mg/dL); URINE UROBILINOGEN 0.2 E.U./dL (<1 E.U./dL)
[2017-11-06 02:41] LABS: URINE APPEARANCE CLOUDY (CLEAR); URINE COLOR YELLOW (YELLOW)
[2017-11-06] MEDS ORDERED: Sodium Chloride 0.9% 1,000 ML IV STA (03:29)
[2017-11-06] MEDS ORDERED: Bisacodyl 5mg EC Tab PO ONE (09:01)
[2017-11-06] MEDS ORDERED: Mineral Oil Enema 135 ml RC ONE (09:01)
--- NOTE | 2017-11-06 09:22 | CP.PCM.CON ---
<Gama Apodaca - Last Filed: 11/06/17 09:23> History of Present Illness - History of Present Illness History of Present Illness: PGy5 GI Fellow Consult Note Patient is a 77yo female with PMHx significant for HTN, HLD, depression/anxiety , ?TIA/CVA, dementia, trigeminal neuralgia, GERD who presented to the ED, brought in by her daughters, for abdominal pain, nausea and vomiting. The patient is unable to provide any history given mentation, thus history obtained from daughter Larisa ([phone]). She states that for the last 2 days patient has complained of diffuse abdominal pain. Constipation has been an issue for a long time and daughter stated patient may go 1 week without bowel movements. They have tried Maalox, suppository medications and oral stool softeners intermittently with minimal improvement. At this time, patient is yelling and cannot be calmed down. No nausea, vomiting per nursing since arrival to the floor. PMHx: See HPI PSHx: Hip/shoulder, cholecystectomy, appendectomy FHx: Discussed with patient's daughter and she is unaware of any significant family history Social: No tobacco, EtOH or illicit drug use Endo: 09/27 - EGD - gastric erosions - biopsies unremarkable 12 system ROS limited given mentation Past Patient History - Infectious Disease Hx of Infectious Diseases: None - Tetanus Immunizations Tetanus Immunization: Unknown - Past Social History Smoking Status: Never Smoked - CARDIAC Hx Cardiac Disorders: Yes Hx Angina: No Hx Cardia Arrhythmia: No Hx Circulatory Problems: No Hx Congestive Heart Failure: No Hx Heart Murmur: No Hx Heart Transplant: No Hx Hypercholesterolemia: No Hx Hypertension: Yes Hx Internal Defibrillator: No Hx Mitral Valve Prolapse: No Hx Pacemaker: No Hx Peripheral Edema: No Hx Peripheral Vascular Disease: No - PULMONARY Hx Respiratory Disorders: No Hx Asthma: No Hx Bronchitis: No Hx Chronic Obstructive Pulmonary Disease (COPD): No Hx Emphysema: No Hx Pneumonia: No Hx Respiratory Aspiration: No Hx Respiratory Tract Infection: No Hx Sleep Apnea: No Hx Tuberculosis: No - NEUROLOGICAL Hx Neurological Disorder: Yes Hx Alzheimer's Disease: No HX Cerebrovascular Accident: No Hx Dementia: No Hx Dizziness: No Hx Meningitis: No Hx Migraine: No Hx Parkinson's Disease: No Hx Seizures: No Hx Transient Ischemic Attacks (TIA): No 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 - HEENT Hx HEENT Problems: Yes Hx Blind: No Hx Cataracts: No Hx Deafness: No Hx Difficulty Chewing: Yes Hx Epistaxis: No Hx Glaucoma: No Hx Macular Degeneration: No - RENAL Hx Chronic Kidney Disease: No Hx Dialysis: No Hx Kidney Stones: No Hx Neurogenic Bladder: No Hx Pyelonephritis: No Hx Renal (Kidney) Cancer: No Hx Renal Failure: No - ENDOCRINE/METABOLIC Hx Endocrine Disorders: No Hx Adrenal Cancer: No Hx Diabetes Insipidus: No Hx Diabetes Mellitus Type 1: No Hx Diabetes Mellitus Type 2: No Hx Hyperthyroidism: No Hx Hypothyroidism: No Hx Systemic Lupus Erythematosus: No - HEMATOLOGICAL/ONCOLOGICAL Hx Blood Disorders: No Hx AIDS: No Hx Anemia: No Hx Cancer: No Hx Chemotherapy: No Hx Cirrhosis: No Hx Hemophilia: No Hx Hepatitis A: No Hx Hepatitis B: No Hx Hepatitis C: No Hx Human Immunodeficiency Virus (HIV): No Hx Metastesis: No Hx Shingles: No Hx Sickle Cell Disease: No Hx Unexplained Bleeding: No - INTEGUMENTARY Hx Dermatological Problems: No Hx Basil Cell: No Hx Eczema: No Hx Melanoma: No Hx Psoriasis: No Hx Squamous Cell: No - MUSCULOSKELETAL/RHEUMATOLOGICAL Hx Musculoskeletal Disorders: Yes Hx Arthritis: Yes (rheumatoid arthritis) Hx Back Pain: No Hx Degenerative Joint Disease: No Hx Falls: Yes Hx Fractures: Yes Hx Gout: No Hx Herniated Disk: No Hx Myasthenia Gravis: No Hx Osteoarthritis: Yes Hx Osteomyelitis: No Hx Osteoporosis: No Hx Rhabdomyolysis: No Hx Spinal Stenosis: No Hx Unsteady Gait: Yes - GASTROINTESTINAL Hx Gastrointestinal Disorders: Yes (hemorrhoids) Hx Colostomy: No Hx Crohn's Disease: No Hx Diverticulitis: No Hx Gall Bladder Disease: No Hx Gastroesophageal Reflux: Yes Hx Ileostomy: No Hx Liver Failure: No Hx Pancreatitis: No HX Swallowing Problems: No Hx Ulcer: No - GENITOURINARY/GYNECOLOGICAL Hx Genitourinary Disorders: Yes Hx Hematuria: No Hx Incontinence: Yes Hx Sexually Transmitted Disorders: No Hx Urinary Tract Infection: Yes - PSYCHIATRIC Hx Psychophysiologic Disorder: Yes Hx Anxiety: Yes Hx Bipolar Disorder: No Hx Depression: Yes Hx Emotional Abuse: No Hx Hallucinations: No Hx Panic Symptoms: No Hx Paranoia: No Hx Post Traumatic Stress Disorder: No Hx Psychosis: No Hx Physical Abuse: No Hx Schizophrenia: No Hx Sexual Abuse: No - SURGICAL HISTORY Hx Surgeries: Yes Hx Amputation: No Hx Appendectomy: No Hx Cardiac Catheterization: No Hx Cholecystectomy: No Hx Coronary Stent: No Hx Gastric Bypass Surgery: No Hx Hysterectomy: No Hx Joint Replacement: No Hx Kidney Transplant: No Hx Liver Transplant: No Hx Mastectomy: No Hx Musculoskeletal Surgery: No Hx Open Heart Surgery: No Hx Orthopedic Surgery: Yes (right hip and left shoulder, left leg with metal) Hx Splenectomy: No Hx Valve Replacement: No Other/Comment: metal implants - ANESTHESIA Hx Anesthesia Reactions: No Hx Malignant Hyperthermia: No Meds Allergies/Adverse Reactions: Allergies Allergy/AdvReac Type Severity Reaction Status Date / Time oxycodone HCl [From Percocet] AdvReac Intermediate DIZZINESS Verified 11/05/17 22:46 - Medications Medications: Current Medications Acetaminophen (Tylenol 325mg Tab) 650 mg PO Q4H PRN PRN Reason: Pain, Mild (1-3) Aspirin (Ecotrin) 81 mg PO DAILY [facility] Atorvastatin Calcium (Lipitor) 20 mg PO DAILY [facility] Baclofen (Lioresal) 10 mg PO DAILY [facility] Carbamazepine (Tegretol) 200 mg PO HS [facility] PRN Reason: Protocol Gabapentin (Neurontin) 300 mg PO DAILY [facility] PRN Reason: Protocol Sodium Chloride (Sodium Chloride 0.9%) 1,000 mls @ 100 mls/hr IV .Q10H STA Stop: 11/06/17 13:28 Last Admin: 11/06/17 04:09 Dose: 100 mls/hr Pantoprazole Sodium (Protonix 40mg Ivpb) 40 mg in 100 mls @ 200 mls/hr IVPB 0600 [facility] Losartan Potassium (Cozaar) 25 mg PO DAILY [facility] Non-Formulary Medication (Calcium Carbonate/Vitamin D3 [Calcium 600+D Softgel]) 1 tab PO DAILY [facility] Non-Formulary Medication (Carbamazepine [Tegretol-Xr]) 100 mg PO BID [facility] Non-Formulary Medication (Temazepam [Restoril]) 30 mg PO HS [facility] Ondansetron HCl (Zofran Inj) 4 mg IVP Q6H PRN PRN Reason: Nausea/Vomiting Last Admin: 11/06/17 08:02 Dose: 4 mg Polyethylene Glycol (Miralax) 17 gm PO BID [facility] Sertraline HCl (Zoloft) 100 mg PO HS [facility] Trazodone HCl (Desyrel) 200 mg PO HS [facility] Physical Exam - Constitutional Appears: Non-toxic, Agitated, Chronically Ill - Eye Exam Eye Exam: PERRL - ENT Exam ENT Exam: Mucous Membranes Dry - Respiratory Exam Respiratory Exam: Clear to Auscultation Bilateral. absent: Rales, Rhonchi, Wheezes - Cardiovascular Exam Cardiovascular Exam: Tachycardia, REGULAR RHYTHM, +S1, +S2 - GI/Abdominal Exam GI & Abdominal Exam: Normal Bowel Sounds, Soft. absent: Distended, Firm, Guarding, Organomegaly, Rigid, Tenderness - Extremities Exam Extremities exam: Positive for: normal inspection. Negative for: pedal edema - Neurological Exam Neurological exam: Altered - Psychiatric Exam Psychiatric exam: Agitated, Anxious - Skin Skin Exam: Dry, Warm Results - Vital Signs Recent Vital Signs: Last Vital Signs Temp 99.3 F 11/06/17 07:57 Pulse 99 H 11/06/17 07:57 Resp 19 11/06/17 07:57 BP 147/87 11/06/17 07:57 Pulse Ox 95 11/06/17 07:57 - Labs Result Diagrams: 11/05/17 23:43 11/05/17 23:43 Assessment & Plan - Assessment and Plan (Free Text) Assessment: Patient is a 77yo female with PMHx significant for HTN, HLD, depression/anxiety , ?TIA/CVA, dementia, trigeminal neuralgia, GERD who presented to the ED, brought in by her daughters, for abdominal pain, nausea and vomiting. -Severe constipation -Dementia Plan: -Recommend aggressive bowel regimen with Dulcolax 10mg PO now, one mineral oil enema followed by tap water enemas q4H as tolerated by patient -Start and continue patient on Miralax 17g PO TID -Adequate hydration and oral intake encouraged -Discussed importance of medication/nutrition/hydration with daughter -If patient remains constipated, may benefit from outpatient initiation of agent such as Linzess or Amitiza - Date & Time Date: 11/06/17 Time: 08:45 <Grant Vazquez - Last Filed: 11/06/17 09:47> Meds - Medications Medications: Current Medications Acetaminophen (Tylenol 325mg Tab) 650 mg PO Q4H PRN PRN Reason: Pain, Mild (1-3) Aspirin (Ecotrin) 81 mg PO DAILY [facility] Atorvastatin Calcium (Lipitor) 20 mg PO DAILY [facility] Baclofen (Lioresal) 10 mg PO DAILY [facility] Carbamazepine (Tegretol) 200 mg PO HS [facility] PRN Reason: Protocol Gabapentin (Neurontin) 300 mg PO DAILY [facility] PRN Reason: Protocol Sodium Chloride (Sodium Chloride 0.9%) 1,000 mls @ 100 mls/hr IV .Q10H STA Stop: 11/06/17 13:28 Last Admin: 11/06/17 04:09 Dose: 100 mls/hr Pantoprazole Sodium (Protonix 40mg Ivpb) 40 mg in 100 mls @ 200 mls/hr IVPB 0600 [facility] Losartan Potassium (Cozaar) 25 mg PO DAILY [facility] Non-Formulary Medication (Calcium Carbonate/Vitamin D3 [Calcium 600+D Softgel]) 1 tab PO DAILY [facility] Non-Formulary Medication (Carbamazepine [Tegretol-Xr]) 100 mg PO BID [facility] Non-Formulary Medication (Temazepam [Restoril]) 30 mg PO HS [facility] Ondansetron HCl (Zofran Inj) 4 mg IVP Q6H PRN PRN Reason: Nausea/Vomiting Last Admin: 11/06/17 08:02 Dose: 4 mg Polyethylene Glycol (Miralax) 17 gm PO BID [facility] Sertraline HCl (Zoloft) 100 mg PO HS [facility] Trazodone HCl (Desyrel) 200 mg PO HS [facility] Results - Vital Signs Recent Vital Signs: Last Vital Signs Temp 99.3 F 11/06/17 07:57 Pulse 99 H 11/06/17 07:57 Resp 19 11/06/17 07:57 BP 147/87 11/06/17 07:57 Pulse Ox 95 11/06/17 07:57 - Labs Result Diagrams: 11/05/17 23:43 11/05/17 23:43 Attending/Attestation - Attestation I have personally seen and examined this patient.: Yes I have fully participated in the care of the patient.: Yes I have reviewed all pertinent clinical information: Yes Notes (Text): 11/06/17 09:46 77 year old female with h/o Dementia, HTN, HLD, admitted with abdominal pain and constipation. Large burden of stool in the rectum. Recommend bowel regimen with enemas and laxatives as above.
[2017-11-06] MEDS ORDERED: VITAMIN D3 PO SCH ×2 (10:00→19:00)
[2017-11-06] MEDS ORDERED: CALCIUM CARBONATE PO SCH ×2 (10:00→19:00)
[2017-11-06 11:54] VITALS: BMI 24.0
[2017-11-06] MEDS ORDERED: Morphine 2 mg/ml ISec IVP SCH (12:00)
[2017-11-06] MEDS ORDERED: Morphine 2 mg/ml ISec IVP PRN (12:05)
[2017-11-06] MEDS ORDERED: Morphine 4 mg/ml ISec IVP PRN (12:17)
[2017-11-06] MEDS: CARBAMAZEPINE 100 MG PO SCH ×2 (12:48→17:48)
[2017-11-06] MEDS: POLYETHYLENE GLYCOL 3350 17 GM/Dose PACKET PO SCH ×2 (15:07→17:48)
--- NOTE | 2017-11-06 18:34 | CARD ---
APPROVED REPORT EKG Measurement Heart [id number] <Conclusion> Normal sinus rhythm Normal ECG
--- NOTE | 2017-11-06 19:02 | HP ---
HISTORY OF PRESENT ILLNESS: I have known her for about a year now and I have been doing house calls on her. She was on hospice. She is now off hospice. She has been having problems with constipation on and off and now she has intractable nausea and vomiting and the daughter brought her in and she had abdominal pain. She is a 77-year-old female, who is most of the time bedridden, needs help to get out of bed to a chair. PAST MEDICAL HISTORY: She has a past medical history that includes high cholesterol, hypertension, GERD, depression, anxiety, trigeminal neuralgia, constipation, nausea, vomiting, and chronic pain. She has on the right jaw, rheumatoid arthritis, hemorrhoids, gastroesophageal reflux. She is incontinent of urine. She has anxiety and depression. She had orthopedic surgery in the right hip, left shoulder, and the left leg with [id number] implants. FAMILY HISTORY: There is hypertension in the family. SOCIAL HISTORY: She never smoked. No alcohol. No drugs. ALLERGIES: SHE GETS OXYCODONE, THAT IS THE ONE THAT MAKES HER TO HAVE ALLERGIES. MEDICATIONS: She is on aspirin, Zoloft, Desyrel, Protonix, Lipitor, Lioresal, vitamins, Neurontin, Cozaar, Phenergan, Zantac, Senna, Restoril, tramadol, and Tegretol. REVIEW OF SYSTEMS: Very difficult to accomplish this with her poor mentation, but she has no acute headache, no chest pain or shortness of breath. She is having abdominal pain. No leg pains. She is not hungry. PHYSICAL EXAMINATION: GENERAL: She is alert and aware and fairly well appearing, in mild distress. VITAL SIGNS: She has a 98.1 temperature, 74 pulse, 19 respiratory rate, 120/69 blood pressure, 97% O2 sat on room air. HEENT: Head is atraumatic and normocephalic. Extraocular muscles are intact. Throat is moist. NECK: Supple. HEART: Regular rate. LUNGS: Decreased breath sounds bilaterally, but clear. ABDOMEN: Soft. Decreased bowel sounds. Mildly tender. No guarding or rebound or CVA tenderness. EXTREMITIES: No edema. She is stiff in all four extremities. SKIN: For the most part is intact. I do believe she has a sacral ulcer. DIAGNOSTIC STUDIES: We have been dealing with house calls for a while now. She had a CAT scan of the abdomen and pelvis, which showed large amount of stool in the colon, probably constipation, endometrial canal distention, non-emergent gynecological evaluation. A 7.5 white count, 11.7 hemoglobin, 36.3 hematocrit with a 187 platelets. She has a 1.03 INR. Sodium 143, potassium 3.7, BUN 11, creatinine 0.6, GFR is greater than 60, sugar is 121, calcium is 9.5, total bilirubin is 0.2, AST is 21, ALT is 24, alkaline phosphatase 96, lactate dehydrogenase is 462. Troponin I is less than 0.01. Total protein 6.2, albumin is 3.5, lipase is 74 and amylase is 48. Urine is clean. PLAN: We are going to consult GI and also Neurosurgical Nurse for their opinion. Hopefully, we can clean her up today. I discussed this with the GI fellow and we will see if we can get her out tomorrow. Chau Cardenas DO MTDShabnam
[2017-11-06] MEDS: TEMAZEPAM 30 MG PO SCH ×2 (22:09→22:32)
[2017-11-07] MEDS ORDERED: Pantoprazole 40mg/100mL NS 40 MG/100 ML BAG IVPB SCH (06:00)
[2017-11-07 06:31] LABS: MEAN CORPUSCULAR HEMOGLOBIN 30.6 pg (25.0-35.0); MEAN CORPUSCULAR HGB CONC 32.3 g/dl (31.0-37.0); MEAN PLATELET VOLUME 9.7 fl (7.0-11.0); RBC 3.59 10^6/uL (3.5-6.1); RED CELL DISTRIBUTION WIDTH 14.4 % (11.5-14.5); WHITE BLOOD COUNT 7.8 10^3/ul (4.5-11.0)
[2017-11-07 07:07] LABS: ALB/GLOB RATIO 1.2 (1.1-1.8); ALBUMIN 2.9 g/dL (3.0-4.8); ALT/SGPT 20 U/L (7-56); AST/SGOT 22 U/L (14-36); BLOOD UREA NITROGEN 9 mg/dL (7-21); GFR AFRICAN-AMERICAN > 60; GFR NON-AFRICAN AMERICAN > 60
[2017-11-07 07:24] VITALS: BP 133/65; PULSE 68; RESP 18; TEMP 100; O2SAT 96
--- NOTE | 2017-11-07 09:13 | CP.PCM.PN ---
Subjective - Date & Time of Evaluation Date of Evaluation: 11/07/17 Time of Evaluation: 09:08 - Subjective Subjective: Patient seen and examined, sitting in bed comfortably. No acute events overnight, she is in good spirits today eating breakfast with assistance from executive director of nursing. No reported nausea, vomiting, fever/chills. As per nursing staff , she had 3 bowel movements yesterday, none overnight. Review of vitals from today shows low grade temperature of 100.0. 12 point review of systems performed, negative aside from mentioned above. Objective - Vital Signs/Intake and Output Vital Signs (last 24 hours): Temp Pulse Resp BP Pulse Ox 100.0 F H 68 18 133/65 96 11/07/17 07:24 11/07/17 07:24 11/07/17 07:24 11/07/17 07:24 11/07/17 07:24 Intake and Output: 11/07/17 11/07/17 06:59 18:59 Intake Total 300 Balance 300 - Medications Medications: Current Medications Acetaminophen (Tylenol 325mg Tab) 650 mg PO Q4H PRN PRN Reason: Pain, Mild (1-3) Aspirin (Ecotrin) 81 mg PO DAILY [facility] Last Admin: 11/06/17 15:07 Dose: 81 mg Atorvastatin Calcium (Lipitor) 20 mg PO DAILY [facility] Last Admin: 11/06/17 15:07 Dose: 20 mg Baclofen (Lioresal) 10 mg PO DAILY [facility] Last Admin: 11/06/17 15:09 Dose: 10 mg Carbamazepine (Tegretol) [address] [facility] PRN Reason: Protocol Last Admin: 11/06/17 22:31 Dose: Not Given Gabapentin (Neurontin) 300 mg PO DAILY [facility] PRN Reason: Protocol Last Admin: 11/06/17 15:07 Dose: 300 mg Home Med (Home Med) [address] [facility] Last Admin: 11/06/17 22:32 Dose: Not Given Pantoprazole Sodium (Protonix 40mg Ivpb) 40 mg in 100 mls @ 200 mls/hr IVPB 0600 [facility] Last Admin: 11/07/17 05:22 Dose: 200 mls/hr Potassium Chloride (Potassium Chloride 20 Meq/100 Ml) 20 meq in 100 mls @ 50 mls/hr IVPB ONCE ONE Stop: 11/07/17 11:00 Losartan Potassium (Cozaar) 25 mg PO DAILY [facility] Last Admin: 11/06/17 15:06 Dose: 25 mg Morphine Sulfate (Morphine) 1 mg IVP Q3 PRN PRN Reason: Pain, moderate (4-7) Last Admin: 11/06/17 12:29 Dose: 1 mg Non-Formulary Medication (Carbamazepine [Tegretol-Xr]) 100 mg PO BID [facility] Last Admin: 11/06/17 17:48 Dose: Not Given Non-Formulary Medication (Calcium Carbonate/Vitamin D3 [Calcium 600+D Softgel]) 1 tab PO DAILY [facility] Ondansetron HCl (Zofran Inj) 4 mg IVP Q6H PRN PRN Reason: Nausea/Vomiting Last Admin: 11/06/17 08:02 Dose: 4 mg Polyethylene Glycol (Miralax) 17 gm PO BID [facility] Last Admin: 11/06/17 17:48 Dose: 17 gm Sertraline HCl (Zoloft) [address] [facility] Last Admin: 11/06/17 22:34 Dose: Not Given Trazodone HCl (Desyrel) [address] [facility] Last Admin: 11/06/17 22:32 Dose: Not Given - Labs Labs: 11/07/17 05:30 11/07/17 05:30 PT 11.8 SECONDS (9.4-12.5) 11/05/17 23:43 INR 1.03 (0.93-1.08) 11/05/17 23:43 APTT 27.5 Seconds (25.1-36.5) 11/05/17 23:43 - Constitutional Appears: Non-toxic, No Acute Distress - Head Exam Head Exam: NORMAL INSPECTION - Eye Exam Eye Exam: EOMI, Normal appearance - ENT Exam ENT Exam: Mucous Membranes Moist - Respiratory Exam Respiratory Exam: Clear to Ausculation Bilateral - Cardiovascular Exam Cardiovascular Exam: REGULAR RHYTHM, +S1, +S2 - GI/Abdominal Exam GI & Abdominal Exam: Soft, Normal Bowel Sounds Additional comments: non tender to palpation in four quadrants - Extremities Exam Extremities Exam: Normal Inspection - Skin Skin Exam: Dry, Intact, Normal Color, Warm Assessment and Plan - Assessment and Plan (Free Text) Assessment: HTN Hyperlipidemia Dementia Trigeminal neuralgia Constipation Plan: - Diet as tolerated - Maintain bowel regimen to prevent recurrent constipation - May use tap water enema PRN for symptomatic relief - No further planned GI intervention, will sign off case. Please reconsult as necessary, thank you.
[2017-11-07] MEDS: CARBAMAZEPINE 100 MG PO SCH (09:52)
[2017-11-07] MEDS: POLYETHYLENE GLYCOL 3350 17 GM/Dose PACKET PO SCH (09:54)
--- NOTE | 2017-11-08 03:12 | DS ---
CHIEF COMPLAINT: She at last had good bowel movements yesterday. She is eating her breakfast. She is in good spirits. This is from GI. From their standpoint, she can be discharged today. She is alert. She would like to go home. She is on calcium,Tegretol, Cozaar, Desyrel, Ecotrin, potassium replacement, Lipitor, MiraLax, morphine as needed, Neurontin, Protonix, Tylenol, Zofran and Zoloft. She is alert, comfortable. PHYSICAL EXAMINATION: VITAL SIGNS: She did have a 98 temperature this morning, but now it is a 100, I will give her some Tylenol, we have no source; pulse rate is 68; 133/65 blood pressure; 18 respiratory rate, 96% O2 sat on room air. HEENT: Head is atraumatic, normocephalic. GENERAL: She is alert and talking. HEART: Regular rate. LUNGS: Decreased breath sounds. ABDOMEN: Soft. Positive bowel sounds. No guarding. EXTREMITIES: No edema. NEUROLOGIC: She is alert. LABORATORY DATA: She has a 7.8 white count, 11 hemoglobin, 34.1 hematocrit with 155 platelets. She has a 143 sodium; potassium 3.1, replaced the potassium. BUN 9, creatinine 0.5, GFR is greater than 60, sugar is 80. Calcium is 9, total bili is 0.3, AST is 22, ALT is 20, alk phos is 98, total protein is 5.4. Urine was clean. No growth in blood cultures. She was seen by GI and they said she can be discharged home now that she is cleaned out. We will give her some Tylenol and potassium. When the temperature drops, we will discharge her this afternoon. Continue with diet as tolerated. Maintain good bowel regimen. She is going to have had a tap water enema at home for relief when needed and GI signed off the case. She is in observation, and we will discharge her later this afternoon after lunch. Chau Cardenas, DO : 11/07/2017 9:33:16 [facility]nam
[2017-11-08] MEDS ORDERED: Potassium Chloride 20 mEq ER Tab PO SCH (08:00)
== END 2017-11-07 13:56 | disposition home or self-care (01) ==
LOC: ED 22:01 → ERH 11-06 03:28 → 3RNO 11-06 04:29
PROVIDERS: ADMIT Family Medicine; ATTEND Family Medicine
DX: R11.2 Nausea with vomiting, unspecified (principal); R10.9 Unspecified abdominal pain; I10 Essential (primary) hypertension; K59.00 Constipation, unspecified; E78.5 Hyperlipidemia, unspecified; F03.90 Unspecified dementia, unspecified severity, without behavioral disturbance, psychotic disturbance, mood disturbance, and anxiety; G50.0 Trigeminal neuralgia; K21.9 Gastro-esophageal reflux disease without esophagitis; F32.9 Major depressive disorder, single episode, unspecified; F41.9 Anxiety disorder, unspecified; Z86.73 Personal history of transient ischemic attack (TIA), and cerebral infarction without residual deficits; Z79.82 Long term (current) use of aspirin
CPT/HCPCS: 36415; 74177; 80053; 81003; 82150; 82550; 83615; 83690; 84484; 85025; 85027; 85610; 85730; 87040; 87086; 92610; 93005; 96361; 96365; 96375; 96376; 97161; 97530; 99285; C9113; G0378; G8978; G8979; G8980; G8996; G8997; J2270; J2405; J3480; J7040; Q9967

== ENCOUNTER 2017-11-12 15:11 | Observation (INO) | payer MEDICARE, BC, MEDICAID ==
[2017-11-12 15:39] VITALS: BMI 20.9
[2017-11-12] MEDS ORDERED: Sodium Chloride 0.9% 1,000 ML IV STA (16:01)
[2017-11-12] MEDS ORDERED: Alum-Mag Hydrox-Simethicone Susp (30 mL) PO STA (16:04)
[2017-11-12] MEDS ORDERED: Atrop/Hyosc/Scopal/PB Elixir (120 ml) PO STA (16:04)
[2017-11-12 16:33] LABS: BASO # 0.01 K/mm3 (0.0-2.0); BASO % 0.2 % (0.0-3.0); EOS % 0.2 % (1.5-5.0); GRAN # 4.37 (1.4-6.5); GRAN % 74.1 % (50.0-68.0); HEMOGLOBIN 11.8 g/dL (12.0-16.0); LYMPH # 1.1 (1.2-3.4); MEAN CELL VOLUME 93.5 fl (80.0-105.0); MEAN CORPUSCULAR HEMOGLOBIN 30.9 pg (25.0-35.0); MEAN CORPUSCULAR HGB CONC 33.1 g/dl (31.0-37.0); MEAN PLATELET VOLUME 9.8 fl (7.0-11.0); MONO # 0.4 (0.1-0.6); MONO % 7.5 % (1.0-6.0); RBC 3.82 10^6/uL (3.5-6.1); RED CELL DISTRIBUTION WIDTH 14.3 % (11.5-14.5); WHITE BLOOD COUNT 5.9 10^3/ul (4.5-11.0)
[2017-11-12 16:46] LABS: ALB/GLOB RATIO 1.3 (1.1-1.8); ALBUMIN 3.7 g/dL (3.0-4.8); ALT/SGPT 20 U/L (7-56); AST/SGOT 30 U/L (14-36); BLOOD UREA NITROGEN 10 mg/dL (7-21); CALCIUM 9.4 mg/dL (8.4-10.5); GFR AFRICAN-AMERICAN > 60; GFR NON-AFRICAN AMERICAN > 60; LIPASE 65 U/L (23-300)
[2017-11-12 17:55] LABS: PH,URINE 7.5 (4.7-8.0); URINE BILIRUBIN NEGATIVE (NEGATIVE); URINE BLOOD NEGATIVE (NEGATIVE); URINE GLUCOSE (UA) NEGATIVE (NEGATIVE); URINE LEUKOCYTE ESTERASE NEGATIVE Leu/uL (NEGATIVE); URINE PROTEIN NEGATIVE mg/dL (<30 mg/dL); URINE UROBILINOGEN 0.2 E.U./dL (<1 E.U./dL)
[2017-11-12 18:01] LABS: URINE APPEARANCE SL CLOUDY (CLEAR); URINE COLOR YELLOW (YELLOW)
--- NOTE | 2017-11-12 18:48 | ED PDOC ---
Arrival/HPI - General Chief Complaint: Abdominal Pain Time Seen by Provider: 11/12/17 15:31 - History of Present Illness Narrative History of Present Illness (Text): 11/12/17 18:45 77 yo female with h/o HTN, HLD, GERD, presents to the ED c/o persistent abdominal pain x 1 week worsening since yesterday. She had constipation for a week and then that was improved with laxativies. Her last BM was yesterday. She then had vomiting episodes yesterday and today. She is eating and drinking less. She feels weak and then felt a little dizzy today. No fever, chills or bodyaches. No urinary symptoms. PMD: Dr. Cardenas. 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 - HEENT Hx HEENT Disorder: Yes Hx Difficulty Chewing: Yes - Renal Hx Renal Disorder: No - Endocrine/Metabolic Hx Endocrine Disorders: No - Hematological/Oncological Hx Blood Disorders: No - Integumentary Hx Dermatological Disorder: No - Musculoskeletal/Rheumatological Hx Musculoskeletal Disorders: Yes Hx Arthritis: Yes (rheumatoid arthritis) - Gastrointestinal Hx Gastrointestinal Disorders: Yes (hemorrhoids) Hx Gastroesophageal Reflux: Yes - Genitourinary/Gynecological Hx Genitourinary Disorders: Yes Hx Incontinence: Yes - Psychiatric Hx Psychophysiologic Disorder: Yes Hx Anxiety: Yes Hx Depression: Yes Hx Substance Use: No - Surgical History Hx Orthopedic Surgery: Yes (right hip and left shoulder, left leg with metal) Other/Comment: metal implants - Anesthesia Hx Anesthesia Reactions: No Hx Malignant Hyperthermia: No Family/Social History - Physician Review Nursing Documentation Reviewed: Yes Family/Social History: No Known Family HX Smoking Status: Never Smoked Hx Alcohol Use: No Hx Substance Use: No Allergies/Home Meds Allergies/Adverse Reactions: Allergies shellfish derived Allergy (Verified 11/12/17 15:45) RASH oxycodone HCl [From Percocet] Adverse Reaction (Intermediate, Verified 11/12/17 15:45) DIZZINESS Home Medications: Home Meds Medication Instructions Recorded Confirmed Aspirin [Aspirin EC] 81 mg PO DAILY 09/18/16 11/12/17 Sertraline [Zoloft] 100 mg PO HS 09/18/16 11/12/17 traZODone [Desyrel] 200 mg PO HS 09/18/16 11/12/17 Pantoprazole [Protonix EC Tab] 40 mg PO DAILY 11/04/16 11/12/17 Atorvastatin [Lipitor] 20 mg PO DAILY 03/26/17 11/12/17 Calcium Carbonate/Vitamin D3 1 tab PO DAILY 03/26/17 11/12/17 [Calcium 600+D Softgel] Losartan [Cozaar] 25 mg PO DAILY 03/26/17 11/12/17 Temazepam [Restoril] 30 mg PO HS 03/26/17 11/12/17 carBAMazepine [Tegretol] 200 mg PO HS 03/26/17 11/12/17 carBAMazepine [TEGretol-XR] 100 mg PO BID 11/06/17 11/12/17 Review of Systems - Physician Review All systems were reviewed & negative as marked: Yes - Review of Systems Constitutional: Normal Eyes: Normal ENT: Normal Respiratory: Normal Cardiovascular: Normal Gastrointestinal: Abdominal Pain, Constipation, Nausea, Vomiting Genitourinary Female: Normal Musculoskeletal: Normal Skin: Normal Neurological: Dizziness. absent: Headache, Focal Weakness, Speech Changes Endocrine: Normal Hemo/Lymphatic: Normal Psychiatric: Normal Physical Exam Vital Signs Reviewed: Yes Vital Signs Pulse Resp BP Pulse Ox 11/12/17 17:51 62 18 167/84 H 97 11/12/17 15:39 85 20 160/77 H 97 Temperature: Afebrile Blood Pressure: Hypertensive Pulse: Regular Respiratory Rate: Normal Appearance: Positive for: Non-Toxic, Ill-Appearing, Uncomfortable Pain Distress: None Mental Status: Positive for: Alert and Oriented X 3 - Systems Exam Head: Present: Atraumatic, Normocephalic Pupils: Present: PERRL Extroacular Muscles: Present: EOMI Conjunctiva: Present: Normal Mouth: Present: Moist Mucous Membranes Neck: Present: Normal Range of Motion Respiratory/Chest: Present: Clear to Auscultation, Good Air Exchange. No: Respiratory Distress, Accessory Muscle Use Cardiovascular: Present: Regular Rate and Rhythm, Normal S1, S2. No: Murmurs Abdomen: Present: Tenderness (epigastric with guarding.), Guarding. No: Distention, Peritoneal Signs, Rebound Back: Present: Normal Inspection Upper Extremity: Present: Normal Inspection. No: Cyanosis, Edema Lower Extremity: Present: Normal Inspection. No: Edema Neurological: Present: GCS=15, CN II-XII Intact, Speech Normal Skin: Present: Warm, Dry, Normal Color. No: Rashes Psychiatric: Present: Alert, Oriented x 3, Normal Insight, Normal Concentration Medical Decision Making ED Course and Treatment: 11/12/17 18:48 77 yo female with abdominal pain and n/v/constipation r/o gastritis/reflux r/o pancreatitis -- Labs -- IVF, Zofran, Pepcid IV -- UA 11/12/17 18:49 Labs reviewed and normal. Patient continued to have abdominal pain and nausea. Not tolerating PO fluids. Case discussed with Dr. Cardenas who will admit to his service. CT ordered and he will f/u results. - Lab Interpretations Lab Results: 11/12/17 16:15 11/12/17 16:15 Lab Results 11/12/17 17:40: Urine Color Yellow, Urine Appearance Sl cloudy, Urine pH 7.5, Ur Specific [place] 1.020, Urine Protein Negative, Urine Glucose (UA) Negative, Urine Ketones Negative, Urine Blood Negative, Urine Nitrate Negative, Urine Bilirubin Negative, Urine Urobilinogen 0.2, Ur Leukocyte Esterase Negative 11/12/17 16:15: Sodium 144, Potassium 3.8, Chloride 106, Carbon Dioxide 30, Anion Gap 12, BUN 10, Creatinine 0.7, Est GFR ( Amer) > 60, Est GFR (Non- Af Amer) > 60, Random Glucose 111 H, Calcium 9.4, Magnesium 2.4 H, Total Bilirubin 0.3, AST 30, ALT 20, Alkaline Phosphatase 98, Total Protein 6.5, Albumin 3.7, Globulin 2.8, Albumin/Globulin Ratio 1.3, Lipase 65 11/12/17 16:15: WBC 5.9 D, RBC 3.82, Hgb 11.8 L, Hct 35.7 L, MCV 93.5, MCH 30.9 , MCHC 33.1, RDW 14.3, Plt Count 188, MPV 9.8, Gran % 74.1 H, Lymph % (Auto) 18.0 L, [place] % (Auto) 7.5 H, Eos % (Auto) 0.2 L, Baso % (Auto) 0.2, Gran # 4.37 , Lymph # (Auto) 1.1 L, [place] # (Auto) 0.4, Eos # (Auto) 0.0, Baso # (Auto) 0.01 - RAD Interpretation Radiology Orders: 11/12/17 16:28 ABD & PELVIS W/O PO OR IV CONT [CT] Stat - Medication Orders Current Medication Orders: Sodium Chloride (Sodium Chloride 0.9%) 1,000 mls @ 100 mls/hr IV .Q10H STA Stop: 11/13/17 02:00 Last Admin: 11/12/17 16:27 Dose: 100 mls/hr eMAR Start Stop Document 11/12/17 16:27 SRE (Rec: 11/12/17 16:27 SRE [id number]) Intravenous Solution Start Date 11/12/17 Start Time 16:27 Discontinued Medications Al Hydrox/Mg Hydrox/Simethicone (Maalox Plus 30 Ml) 30 ml PO STAT STA Stop: 11/12/17 16:05 Last Admin: 11/12/17 16:28 Dose: 30 ml Belladonna/Phenobarbital ( Elixir) 5 ml PO STAT STA Stop: 11/12/17 16:05 Last Admin: 11/12/17 16:27 Dose: 5 ml Famotidine (Pepcid) 20 mg IVP STAT STA Stop: 11/12/17 16:02 Last Admin: 11/12/17 16:29 Dose: 20 mg IVP Administration Document 11/12/17 16:29 SRE (Rec: 11/12/17 16:29 SRE [id number]) Charges for Administration # of IVP Administrations 1 Ketorolac Tromethamine (Toradol) 15 mg IVP STAT STA Stop: 11/12/17 16:05 Last Admin: 11/12/17 16:28 Dose: 15 mg MAR Pain Assessment Document 11/12/17 16:28 SRE (Rec: 11/12/17 16:28 SRE [id number]) Pain Reassessment Is this a pain reassessment? Yes Sleep Is patient sleeping during reassessment? No Presence of Pain Presence of Pain Yes Location Pain Location Body Site Abdomen Description Description Intermittent IVP Administration Document 11/12/17 16:28 SRE (Rec: 11/12/17 16:28 SRE [id number]) Charges for Administration # of IVP Administrations 1 Re-Assess: KARL Pain Assessment Document 11/12/17 17:28 SRE (Rec: 11/12/17 18:12 SRE [id number]) Pain Reassessment Is this a pain reassessment? Yes Sleep Is patient sleeping during reassessment? No Presence of Pain Presence of Pain Yes Pain Scale Used Pain Scale Used Numeric Location Pain Location Body Site Abdomen Description Description Intermittent Lidocaine HCl (Lidocaine 2% Viscous) 15 ml PO STAT STA Stop: 11/12/17 16:05 Last Admin: 11/12/17 16:28 Dose: 15 ml Ondansetron HCl (Zofran Inj) 4 mg IVP STAT STA Stop: 11/12/17 18:13 Last Admin: 11/12/17 18:21 Dose: 4 mg IVP Administration Document 11/12/17 18:21 SRE (Rec: 11/12/17 18:22 SRE [id number]) Charges for Administration # of IVP Administrations 1 Disposition/Present on Arrival - Present on Arrival Any Indicators Present on Arrival: No History of DVT/PE: No History of Uncontrolled Diabetes: No Urinary Catheter: No History of Decub. Ulcer: No History Surgical Site Infection Following: None - Disposition Have Diagnosis and Disposition been Completed?: Yes Diagnosis: Intractable nausea and vomiting, Abdominal pain Disposition: HOSPITALIZED Disposition Time: 18:52 Patient Plan: Observation Condition: FAIR Referrals: Chau Cardenas DO [Primary Care Provider] - Follow up with primary
--- NOTE | 2017-11-12 20:53 | CT ---
EXAM: CT Abdomen and Pelvis Without Intravenous Contrast EXAM DATE/TIME: 11/12/2017 4:28 PM CLINICAL HISTORY: The patient age is 77 years old and is female; Pain; Abdominal pain; Additional info: Abd pain Facility exam id and description: Ct abdpelscon abd pelvis w/o po or iv cont TECHNIQUE: Axial computed tomography images of the abdomen and pelvis without intravenous contrast. All CT scans at this facility use one or more dose reduction techniques, viz.: automated exposure control; ma/kV adjustment per patient size (including targeted exams where dose is matched to indication; i.e. head); or iterative reconstruction technique. Coronal and sagittal reformatted images were created and reviewed. COMPARISON: CT - ABD PELVIS IV CONTRAST ONLY 2017-11-06 00:51 FINDINGS: Lung bases: Atelectatic change/parenchyma scarring is identified at the left lung base. ABDOMEN: Liver: No mass. Gallbladder and bile ducts: No calcified stones. No ductal dilation. Pancreas: Normal contour. No ductal dilation. Spleen: No splenomegaly. Adrenals: No mass. Kidneys and ureters: There is a hypodense cyst at the midpole the right kidney measuring 3.2 cm in diameter. A similar finding is visualized on the prior study. No obstructing stones. No hydronephrosis. Stomach and bowel: There is new wall thickening of the distal rectum. This is suggestive of proctitis, although additional pathology cannot be excluded. Colonic diverticula are identified, without acute inflammatory stranding of the adjacent mesentery. Air-contrast levels are identified within the colon, without significant distention. Appendix: No findings to suggest acute appendicitis. PELVIS: Bladder: No stones. Reproductive: Multiple small calcifications are identified both within and adjacent to the cervix. ABDOMEN and PELVIS: Intraperitoneal space: No free air. Bones/joints: Stable compression fractures are visualized of the L4 and T11 vertebral bodies. Postoperative changes are visualized with internal fixation of the left femur. Osteopenia. Hypertrophic degenerative changes are noted within the spine. Vasculature: There is atherosclerotic calcification of the abdominal aorta. No abdominal aortic aneurysm. Lymph nodes: No enlarged lymph nodes. IMPRESSION: 1. There is new wall thickening of the distal rectum. This is suggestive of proctitis, although additional pathology cannot be excluded. Further clinical evaluation is recommended. 2. Diverticulosis. 3. Stable compression fractures are visualized of the L4 and T11 vertebral bodies. 4. Additional CT findings described above.
--- NOTE | 2017-11-13 07:06 | CP.PCM.PN ---
Subjective - Date & Time of Evaluation Date of Evaluation: 11/13/17 Time of Evaluation: 06:58 - Subjective Subjective: S:Nurse calls and tells that blood sugar is low. It is 75 mg % . Patient seen at bedside. Has no complaints. Pertinent medical record was reviewed. O:VSS. Not in distress. LUNGS: Normal breathing pattern. A:Hypoglycemia. P:Observation. Objective - Vital Signs/Intake and Output Vital Signs (last 24 hours): Temp Pulse Resp BP Pulse Ox 98.3 F 67 20 144/70 97 11/12/17 18:51 11/12/17 20:37 11/12/17 23:13 11/12/17 20:37 11/12/17 20:37 Intake and Output: 11/12/17 11/13/17 18:59 06:59 Intake Total 180 Balance 180 - Medications Medications: Current Medications Aspirin (Ecotrin) 81 mg PO DAILY ZEINAB Carbamazepine (Tegretol) 100 mg PO BID ZEINAB Carbamazepine (Tegretol) 200 mg PO HS [facility] PRN Reason: Protocol Last Admin: 11/12/17 22:47 Dose: 200 mg Insulin Human Regular (Humulin R Med) 0 units SC ACHS [facility] PRN Reason: Protocol Ketorolac Tromethamine (Toradol) 30 mg IVP Q6 PRN PRN Reason: Pain, moderate (4-7) Metoclopramide HCl (Reglan) 5 mg IVP ACHS [facility] Last Admin: 11/12/17 22:44 Dose: 5 mg Ondansetron HCl (Zofran Inj) 4 mg IVP Q4H PRN PRN Reason: Nausea/Vomiting Pantoprazole Sodium (Protonix Inj) 40 mg IVP DAILY ZEINAB Sertraline HCl (Zoloft) 100 mg PO HS [facility] Last Admin: 11/12/17 22:46 Dose: 100 mg Trazodone HCl (Desyrel) 200 mg PO HS [facility] Last Admin: 11/12/17 22:46 Dose: 200 mg
--- NOTE | 2017-11-13 07:09 | HP ---
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 I know the family well. She was having problems with abdominal pain, had nausea and vomiting, constipation, and she was in the hospital a week ago, did well, had a big bowel movement, then it happened again. So, she was taken to the Emergency Room. She is a 77-year-old female with constipation issues. She is on multiple medications for her bowels and her stomach with laxatives. She has hypertension, high cholesterol, GERD, abdominal pain on and off, constipation on and off, nausea, vomiting. She was on hospice and she was taken off hospice when family changed the mind. She has TMJ of the right jaw, difficulty chewing. She has rheumatoid arthritis, hemorrhoids, incontinence of urine, anxiety, depression. She had a right hip, left shoulder, left leg all with orthopedic surgeries and metal implants. FAMILY HISTORY: She has no family history to speak of. SOCIAL HISTORY: Never smoked. No alcohol. No drugs. ALLERGIES: SHE IS ALLERGIC TO SHELLFISH AND OXYCODONE. MEDICATIONS: She takes aspirin, Zoloft, Desyrel, Protonix, Lipitor, vitamins, Cozaar, Restoril, Tegretol. REVIEW OF SYSTEMS: No acute vision or hearing changes. She is lethargic today. She is having nausea, vomiting, and constipation, but she had a bowel movement the other day, they told me. She had some abdominal pain diffusely. She is a little bit dizzy. No chest pain. No shortness of breath. Skin is okay. PHYSICAL EXAMINATION VITAL SIGNS: She has 97 , 167/84 blood pressure, 18 respiratory rate, and 62 pulse. GENERAL: She is ill appearing. She is very uncomfortable. She is holding her belly. She is in pain. She is alert and oriented. HEENT: Head is atraumatic, normocephalic. Extraocular muscles are intact. Pupils are equal and reactive to light. Throat is dry. NECK: Supple. HEART: Regular rate. Normal S1 and S2. LUNGS: Decreased breath sounds bilaterally, but clear. No wheezes, no rhonchi, no rales. ABDOMEN: Tender all over the place. There is guarding. No rebound. May be mildly distended, but definitely not her normal soft belly. EXTREMITIES: No edema. NEUROLOGIC: GCS is 15. Cranial nerves II to XII grossly intact. Speech is normal. SKIN: Warm and dry. Poor turgor. LYMPHATIC: Thyroid midline. No palpable appreciable lymphadenopathy. LABORATORY DATA: She had multiple labs. She had a urine which was clean. She had a 144 sodium, potassium 3.8, BUN 10, creatinine 0.7, GFR is greater than 60. Sugar is 111, calcium is 9.4, magnesium 2.4, total bilirubin is 0.3, AST is 30, ALT is 20, alkaline phosphatase 98, total protein 6.5, albumin is 3.7, lipase is 65. White count is 5.9, hemoglobin 11.8, hematocrit 35.7, platelets of 188. She has a CAT scan of the abdomen and pelvis that is pending. IMPRESSION AND PLAN: She will have a consult with GI. She will be put on IV fluids. She will be n.p.o. We are going to check her labs tomorrow. She is here for severe abdominal pain, nausea, vomiting, constipation. We will get GI in to take a look at her. Chau Cardenas DO [id number]
[2017-11-13 07:23] VITALS: TEMP 98.4
--- NOTE | 2017-11-13 07:31 | CP.PCM.CON ---
<Gerardo Arnold - Last Filed: 11/13/17 10:18> History of Present Illness - History of Present Illness History of Present Illness: PGY4 GI Fellow Consult Note Reason for consultation: Abd pain Felisa Barros is a 77yo female with PMHx significant for HTN, HLD, depression /anxiety, ?TIA/CVA, dementia, trigeminal neuralgia, GERD who presented to the ED , brought in by her daughters, for abdominal pain, nausea and vomiting. The patient is unable to provide any history given mentation, thus history obtained from EMR and RNs. Pt apparently had not had a BM for 3 days and complained of diffuse abdominal pain. Constipation has been an issue for a long time and daughter stated patient may go 1 week without bowel movements. She was recently discharged from [facility] foir similar complaints and was recommended to be on stool softners daily. As per EMR, pt's daughter did give her a laxative prior to coming to hospital and she subsequently had a large BM. NO BM overnight. PMHx: See HPI PSHx: Hip/shoulder, cholecystectomy, appendectomy FHx: Discussed with patient's daughter and she is unaware of any significant family history Social: No tobacco, EtOH or illicit drug use Endo: 09/27 - EGD - gastric erosions - biopsies unremarkable 12 system ROS limited given mentation Past Patient History - Infectious Disease Hx of Infectious Diseases: None - Tetanus Immunizations Tetanus Immunization: Unknown - Past Social History Smoking Status: Never Smoked - CARDIAC Hx Cardiac Disorders: Yes Hx Hypertension: Yes - PULMONARY Hx Respiratory Disorders: No - NEUROLOGICAL Hx Neurological Disorder: Yes 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 - HEENT Hx HEENT Problems: Yes Hx Difficulty Chewing: Yes - RENAL Hx Chronic Kidney Disease: No - ENDOCRINE/METABOLIC Hx Endocrine Disorders: No - HEMATOLOGICAL/ONCOLOGICAL Hx Blood Disorders: No - INTEGUMENTARY Hx Dermatological Problems: No - MUSCULOSKELETAL/RHEUMATOLOGICAL Hx Musculoskeletal Disorders: Yes Hx Arthritis: Yes (rheumatoid arthritis) Hx Falls: Yes - GASTROINTESTINAL Hx Gastrointestinal Disorders: Yes (hemorrhoids) Hx Gastroesophageal Reflux: Yes - GENITOURINARY/GYNECOLOGICAL Hx Genitourinary Disorders: Yes Hx Incontinence: Yes - PSYCHIATRIC Hx Psychophysiologic Disorder: Yes Hx Anxiety: Yes Hx Depression: Yes Hx Substance Use: No - SURGICAL HISTORY Hx Orthopedic Surgery: Yes (right hip and left shoulder, left leg with metal) Other/Comment: metal implants - ANESTHESIA Hx Anesthesia Reactions: No Hx Malignant Hyperthermia: No Meds Allergies/Adverse Reactions: Allergies Allergy/AdvReac Type Severity Reaction Status Date / Time shellfish derived Allergy RASH Verified 11/12/17 15:45 oxycodone HCl [From Percocet] AdvReac Intermediate DIZZINESS Verified 11/12/17 15:45 - Medications Medications: Current Medications Aspirin (Ecotrin) 81 mg PO DAILY [facility] Carbamazepine (Tegretol) 100 mg PO BID [facility] Carbamazepine (Tegretol) 200 mg PO HS [facility] PRN Reason: Protocol Last Admin: 11/12/17 22:47 Dose: 200 mg Insulin Human Regular (Humulin R Med) 0 units SC [facility] PRN Reason: Protocol Ketorolac Tromethamine (Toradol) 30 mg IVP Q6 PRN PRN Reason: Pain, moderate (4-7) Metoclopramide HCl (Reglan) 5 mg IVP ACHS [facility] Last Admin: 11/12/17 22:44 Dose: 5 mg Ondansetron HCl (Zofran Inj) 4 mg IVP Q4H PRN PRN Reason: Nausea/Vomiting Pantoprazole Sodium (Protonix Inj) 40 mg IVP DAILY [facility] Sertraline HCl (Zoloft) 100 mg PO [facility] Last Admin: 11/12/17 22:46 Dose: 100 mg Trazodone HCl (Desyrel) 200 mg PO [facility] Last Admin: 11/12/17 22:46 Dose: 200 mg Physical Exam - Constitutional Appears: Well, No Acute Distress - Head Exam Head Exam: ATRAUMATIC, NORMOCEPHALIC - Eye Exam Eye Exam: Normal appearance - ENT Exam ENT Exam: Mucous Membranes Moist, Normal Exam - Respiratory Exam Respiratory Exam: Clear to Auscultation Bilateral, NORMAL BREATHING PATTERN. absent: Rales, Rhonchi, Wheezes, Respiratory Distress - Cardiovascular Exam Cardiovascular Exam: REGULAR RHYTHM, +S1, +S2 - GI/Abdominal Exam GI & Abdominal Exam: Normal Bowel Sounds, Soft. absent: Distended, Firm, Guarding, Hernia, Organomegaly, Pulsatile Mass, Rebound, Rigid, Tenderness - Extremities Exam Extremities exam: Negative for: joint swelling, pedal edema - Neurological Exam Neurological exam: Alert - Psychiatric Exam Psychiatric exam: Normal Affect, Normal Mood - Skin Skin Exam: Dry, Intact, Normal Color, Warm Results - Vital Signs Recent Vital Signs: Last Vital Signs Temp 98.4 F 11/13/17 06:00 Pulse 70 11/13/17 06:00 Resp 18 11/13/17 06:00 BP 144/75 11/13/17 06:00 Pulse Ox 95 11/13/17 06:00 - Labs Result Diagrams: 11/13/17 07:00 11/13/17 07:00 Labs: Laboratory Results - last 24 hr 11/12/17 11/13/17 21:38 06:27 POC Glucose (mg/dL) 92 75 Assessment & Plan - Assessment and Plan (Free Text) Assessment: Patient is a 77yo female with PMHx significant for HTN, HLD, depression/anxiety , ?TIA/CVA, dementia, trigeminal neuralgia, GERD who presented to the ED, brought in by her daughters, for abdominal pain, nausea and vomiting. -Severe constipation -Dementia -Proctitis? Plan: -ct reviewed: rectal segment thickening, r/o volvulus -keep NPO -will get a flex sig today -start miralax TID and continue at home -Adequate hydration and oral intake encouraged -PT/OT -May benefit from outpatient initiation of agent such as Linzess or Amitiza -will speak to family in regards to daily stool softner use and proper hydration and fiber intake D/W Dr. Vazquez <Grant Vazquez - Last Filed: 11/13/17 11:35> Meds - Medications Medications: Current Medications Aspirin (Ecotrin) 81 mg PO DAILY [facility] Last Admin: 11/13/17 09:57 Dose: 81 mg Carbamazepine (Tegretol) 100 mg PO BID [facility] Last Admin: 11/13/17 09:57 Dose: 100 mg Carbamazepine (Tegretol) 200 mg PO [facility] PRN Reason: Protocol Last Admin: 11/12/17 22:47 Dose: 200 mg Insulin Human Regular (Humulin R Med) 0 units SC A[facility]S [facility] PRN Reason: Protocol Last Admin: 11/13/17 08:30 Dose: Not Given Ketorolac Tromethamine (Toradol) 30 mg IVP Q6 PRN PRN Reason: Pain, moderate (4-7) Metoclopramide HCl (Reglan) 5 mg IVP ACHS [facility] Last Admin: 11/13/17 08:31 Dose: 5 mg Ondansetron HCl (Zofran Inj) 4 mg IVP Q4H PRN PRN Reason: Nausea/Vomiting Pantoprazole Sodium (Protonix Inj) 40 mg IVP DAILY [facility] Last Admin: 11/13/17 09:57 Dose: 40 mg Sertraline HCl (Zoloft) 100 mg PO [facility] Last Admin: 11/12/17 22:46 Dose: 100 mg Trazodone HCl (Desyrel) 200 mg PO HS [facility] Last Admin: 11/12/17 22:46 Dose: 200 mg Results - Vital Signs Recent Vital Signs: Last Vital Signs Temp 98.4 F 11/13/17 06:00 Pulse 70 11/13/17 06:00 Resp 18 11/13/17 06:00 BP 144/75 11/13/17 06:00 Pulse Ox 95 11/13/17 06:00 - Labs Result Diagrams: 11/13/17 07:00 11/13/17 07:00 Labs: Laboratory Results - last 24 hr 11/12/17 11/13/17 11/13/17 21:38 06:27 07:00 WBC 5.2 RBC 3.59 Hgb 11.2 L Hct 33.7 L MCV 93.9 MCH 31.2 MCHC 33.2 RDW 14.3 Plt Count 163 MPV 9.3 PT INR Sodium Potassium Chloride Carbon Dioxide Anion Gap BUN Creatinine Est GFR ( Amer) Est GFR (Non-Af Amer) POC Glucose (mg/dL) 92 75 Random Glucose Calcium Total Bilirubin AST ALT Alkaline Phosphatase Total Protein Albumin Globulin Albumin/Globulin Ratio 11/13/17 11/13/17 07:00 10:00 WBC RBC Hgb Hct MCV MCH MCHC RDW Plt Count MPV PT 12.8 H INR 1.11 H Sodium 144 Potassium 3.5 L Chloride 109 H Carbon Dioxide 28 Anion Gap 10 BUN 9 Creatinine 0.7 Est GFR ( Amer) > 60 Est GFR (Non-Af Amer) > 60 POC Glucose (mg/dL) Random Glucose 91 Calcium 8.8 Total Bilirubin 0.2 AST 21 ALT 26 Alkaline Phosphatase 91 Total Protein 5.8 Albumin 3.2 Globulin 2.6 Albumin/Globulin Ratio 1.3 Attending/Attestation - Attestation I have personally seen and examined this patient.: Yes I have fully participated in the care of the patient.: Yes I have reviewed all pertinent clinical information: Yes Notes (Text): 11/13/17 11:35 77 year old female with multiple medical problems presenting with abdominal pain. Questionable volvulus. Significant rectal thickening. Recommend sigmoidoscopy today.
[2017-11-13 07:40] LABS: HEMOGLOBIN 11.2 g/dL (12.0-16.0); MEAN CELL VOLUME 93.9 fl (80.0-105.0); MEAN CORPUSCULAR HEMOGLOBIN 31.2 pg (25.0-35.0); MEAN CORPUSCULAR HGB CONC 33.2 g/dl (31.0-37.0); MEAN PLATELET VOLUME 9.3 fl (7.0-11.0); RBC 3.59 10^6/uL (3.5-6.1); RED CELL DISTRIBUTION WIDTH 14.3 % (11.5-14.5); WHITE BLOOD COUNT 5.2 10^3/ul (4.5-11.0)
[2017-11-13 07:55] LABS: ALB/GLOB RATIO 1.3 (1.1-1.8); ALBUMIN 3.2 g/dL (3.0-4.8); ALT/SGPT 26 U/L (7-56); AST/SGOT 21 U/L (14-36); BLOOD UREA NITROGEN 9 mg/dL (7-21); CALCIUM 8.8 mg/dL (8.4-10.5); GFR AFRICAN-AMERICAN > 60; GFR NON-AFRICAN AMERICAN > 60
[2017-11-13] MEDS ORDERED: Potassium Chloride 20 mEq ER Tab PO ONE (07:59)
[2017-11-13] MEDS ORDERED: POLYETHYLENE GLYCOL 3350 17 GM/Dose PACKET PO ONE (08:02)
[2017-11-13] MEDS: Insulin Reg-MEDIUM-Coverage SC SCH ×3 (08:30→17:39)
[2017-11-13] MEDS: carBAMazepine Chew Tab 100 MG Chew Tab PO SCH ×2 (09:57→17:39)
[2017-11-13 10:09] LABS: INR 1.11 (0.93-1.08); PROTHROMBIN TIME 12.8 SECONDS (9.4-12.5)
[2017-11-13] MEDS ORDERED: Midazolam 2 MG/2 ML VIAL ONE (15:41)
[2017-11-13] MEDS ORDERED: Propofol 10 mg/ml Inj (20 ML) ONE (15:45)
[2017-11-13 15:49] VITALS: O2SAT 99
[2017-11-13] MEDS ORDERED: Sodium Chloride 0.9% 1,000 ML IV SCH (16:00)
[2017-11-13 16:20] VITALS: RESP 16
[2017-11-13 16:35] VITALS: BP 161/71; PULSE 62
--- NOTE | 2017-11-14 05:16 | DS ---
SUBJECTIVE: She is doing better since yesterday. She is on her medications, trazodone, , Ecotrin, insulin, potassium, lidocaine, Maalox, MiraLax - which has now gone three times a day as per GI, Pepcid, Protonix, Reglan, Tegretol, Toradol, Zofran and Zoloft. PHYSICAL EXAMINATION: VITAL SIGNS: She has a 98.4 temperature, 70 pulse, 144/77 blood pressure, 18 respiratory rate, 95% O2 sat on room air. HEENT: Head is atraumatic, normocephalic. GENERAL: She is much more alert, much more calm, smiling, talking to me. THROAT: Moist. NECK: Supple. HEART: Regular rate. LUNGS: Decreased breath sounds, but clear. ABDOMEN: Very soft, nontender. Positive bowel sounds. No guarding, no rebound, no CVA tenderness. EXTREMITIES: No edema. ASSESSMENT AND PLAN: She is back to her baseline. She is being seen by GI and they felt to do a flexible sigmoidoscopy today. She is moving her bowels here. We are going to discharge her with an increase in her MiraLax three times a day, otherwise her medications will be the same as she takes at home. This is a discharge summary on Erica Barros after her flexible sigmoidoscopy. She was here for constipation, nausea, vomiting, which has resolved. We will see her on house calls. Chau Cardenas DO
== END 2017-11-13 20:39 | disposition home or self-care (01) ==
LOC: ED 15:11 → ERH 18:44 → 5RSO 21:11
PROVIDERS: ADMIT Family Medicine; ATTEND Family Medicine
DX: R10.9 Unspecified abdominal pain (principal); R11.2 Nausea with vomiting, unspecified; K59.00 Constipation, unspecified; K64.8 Other hemorrhoids; K21.9 Gastro-esophageal reflux disease without esophagitis; I10 Essential (primary) hypertension; E78.5 Hyperlipidemia, unspecified; R32 Unspecified urinary incontinence; M06.9 Rheumatoid arthritis, unspecified; F41.9 Anxiety disorder, unspecified; F32.9 Major depressive disorder, single episode, unspecified; F03.90 Unspecified dementia, unspecified severity, without behavioral disturbance, psychotic disturbance, mood disturbance, and anxiety; G50.0 Trigeminal neuralgia; Z86.73 Personal history of transient ischemic attack (TIA), and cerebral infarction without residual deficits; Z79.82 Long term (current) use of aspirin
CPT/HCPCS: 36415; 45330; 74176; 80053; 81003; 82948; 83690; 83735; 85025; 85027; 85610; 96374; 96375; 96376; 99285; C9113; G0378; J1885; J2001; J2250; J2405; J2704; J2765; J3010; J7040

== ENCOUNTER 2017-11-28 20:36 | Emergency (ER) | payer MEDICARE, BC ==
[2017-11-28 20:38] VITALS: BMI 20.9
[2017-11-28] MEDS ORDERED: Sodium Chloride 0.9% 1,000 ML IV STA (20:55)
[2017-11-28 21:01] VITALS: O2SAT 97
--- NOTE | 2017-11-28 21:12 | ED PDOC ---
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 Patient is a poor historian but daughter is by bedside. As per daughter, patient has prior evaluation for similar symptoms with unknown findings. Daughter informs prior cholecystectomy and reported that PMD, Dr. Small had her undergo colonoscopy. As per daughter patient had EGD 1 year ago but results are unknown. Daughter denies any fever, chills, nausea, chest pain, shortness of breath or any other complaints. PMD: Dr. 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 - HEENT Hx HEENT Disorder: Yes Hx Difficulty Chewing: Yes - Renal Hx Renal Disorder: No - Endocrine/Metabolic Hx Endocrine Disorders: No - Hematological/Oncological Hx Blood Transfusions: (UNKNOWN) Hx Blood Transfusion Reaction: (UNKNOWN) - Integumentary Hx Dermatological Disorder: No - Musculoskeletal/Rheumatological Hx Musculoskeletal Disorders: Yes Hx Arthritis: Yes (rheumatoid arthritis) Hx Falls: Yes - Gastrointestinal Hx Gastrointestinal Disorders: Yes (hemorrhoids) Hx Gastroesophageal Reflux: Yes - Genitourinary/Gynecological Hx Genitourinary Disorders: Yes Hx Incontinence: Yes - Psychiatric Hx Psychophysiologic Disorder: Yes Hx Anxiety: Yes Hx Depression: Yes Hx Substance Use: No - Surgical History Hx Orthopedic Surgery: Yes (right hip and left shoulder, left leg with metal) Other/Comment: metal implants - Anesthesia Hx Anesthesia Reactions: No Hx Malignant Hyperthermia: No Family/Social History - Physician Review Nursing Documentation Reviewed: Yes Family/Social History: No Known Family HX Smoking Status: Never Smoked Hx Alcohol Use: No Hx Substance Use: No Allergies/Home Meds Allergies/Adverse Reactions: Allergies shellfish derived Allergy (Verified 11/12/17 15:45) RASH oxycodone HCl [From Percocet] Adverse Reaction (Intermediate, Verified 11/12/17 15:45) DIZZINESS Home Medications: Home Meds Medication Instructions Recorded Confirmed Aspirin [Aspirin EC] 81 mg PO DAILY 09/18/16 11/28/17 Sertraline [Zoloft] 100 mg PO HS 09/18/16 11/28/17 traZODone [Desyrel] 200 mg PO HS 09/18/16 11/28/17 Pantoprazole [Protonix EC Tab] 40 mg PO DAILY 11/04/16 11/28/17 Atorvastatin [Lipitor] 20 mg PO DAILY 03/26/17 11/28/17 Calcium Carbonate/Vitamin D3 1 tab PO DAILY 03/26/17 11/28/17 [Calcium 600+D Softgel] Losartan [Cozaar] 25 mg PO DAILY 03/26/17 11/28/17 Temazepam [Restoril] 30 mg PO HS 03/26/17 11/28/17 carBAMazepine [Tegretol] 200 mg PO HS 03/26/17 11/28/17 carBAMazepine [TEGretol-XR] 100 mg PO BID 11/06/17 11/28/17 Review of Systems - Physician Review All systems were reviewed & negative as marked: Yes - Review of Systems Systems not reviewed;Unavailable: Other (hemiplegia with aphasia) Constitutional: Normal. absent: Fevers Respiratory: Normal. absent: SOB Cardiovascular: Normal. absent: Chest Pain Gastrointestinal: Abdominal Pain. absent: Nausea, Hematochezia Physical Exam Vital Signs Reviewed: Yes Vital Signs Temp Pulse Resp BP Pulse Ox 11/29/17 02:09 98.2 F 75 18 97 11/29/17 01:58 98.2 F 75 18 138/76 97 11/28/17 20:51 98.1 F 84 19 152/89 H 97 Temperature: Afebrile Blood Pressure: Hypertensive Pulse: Regular Respiratory Rate: Normal Appearance: Positive for: Well-Appearing, Non-Toxic, Comfortable Pain Distress: None Mental Status: Positive for: other (awake and alert. expressive aphasia.) - Systems Exam Head: Present: Atraumatic, Normocephalic Pupils: Present: PERRL Extroacular Muscles: Present: EOMI Conjunctiva: Present: Normal Neck: Present: Normal Range of Motion Respiratory/Chest: Present: Clear to Auscultation, Good Air Exchange. No: Respiratory Distress, Accessory Muscle Use Cardiovascular: Present: Regular Rate and Rhythm, Normal S1, S2. No: Murmurs Abdomen: No: Tenderness (no localizing tenderness.), Distention, Peritoneal Signs, Rebound, Guarding, Mass/Organomegaly Back: Present: Normal Inspection Upper Extremity: Present: Normal Inspection, Other (right hemiplegia). No: Cyanosis, Edema Lower Extremity: Present: Normal Inspection, Other (right hemiplegia). No: Edema Neurological: Present: Other (Hemiplegia with aphasia.) Skin: Present: Warm, Dry, Normal Color, Other (Poor skin turgor.). No: Rashes Psychiatric: Present: Alert Medical Decision Making ED Course and Treatment: 11/28/17 21:19 Impression: 77 year old female presents to the Emergency department for abdominal discomfort associated with vomiting. Differential Diagnosis included but are not limited to: Subacute abdominal pain Prior Visits: Notes and results from previous visits were reviewed. Patient was last seen in the emergency department on 11/12/17 for abdominal pain. Patient was admitted to the hospital for further evaluation. Plan: -- Labs -- IV Fluids -- Urinalysis -- CT AVD & PElvis IV Contrast -- Reassess and disposition Progress Notes: EXAM: ABD & Pelvis IV Contrast Dictated By: Mary Moore MD Dictated Date/Time: 11/29/17 0128 IMPRESSION: Continued wall thickening of the rectoanal junction likely representing proctitis although concurrent underlying lesion would be difficult to exclude and followup with direct endoscopic visualization may be helpful. Constipation. Possible cystitis as discussed above.Recommend correlation with urinalysis. 11/29/17 01:36 On re-evaluation, patient feels better and is in no acute distress. I have discussed the results and plan with the patient and patient's family, who expresses understanding. Patient's family agrees to taking patient home and in agreement with plan to be discharged home. Patient is stable for discharge. Patient was instructed to follow up with physician or return if symptoms worsen or new concerning symptoms arise. - Lab Interpretations Lab Results: 11/28/17 21:46 11/28/17 21:46 Lab Results 11/28/17 23:07: Urine Color Yellow, Urine Appearance Sl cloudy, Urine pH 7.0, Ur Specific [place] 1.015, Urine Protein Trace H, Urine Glucose (UA) Negative, Urine Ketones 15 H, Urine Blood Negative, Urine Nitrate Negative, Urine Bilirubin Negative, Urine Urobilinogen 0.2, Ur Leukocyte Esterase Negative, Urine RBC 0 - 2, Urine WBC 0 - 2, Ur Epithelial Cells 1 - 3, Amorphous Sediment Moderate, Urine Bacteria Few, Urine Other Uyeast 11/28/17 21:46: WBC 5.6, RBC 3.95, Hgb 12.4, Hct 37.0, MCV 93.7, MCH 31.4, MCHC 33.5, RDW 13.8, Plt Count 191, MPV 9.7, Gran % 74.8 H, Lymph % (Auto) 16.0 L, Mckinley % (Auto) 8.3 H, Eos % (Auto) 0.7 L, Baso % (Auto) 0.2, Gran # 4.17, Lymph # (Auto) 0.9 L, Mckinley # (Auto) 0.5, Eos # (Auto) 0.0, Baso # (Auto) 0.01 11/28/17 21:46: Sodium 143, Potassium 3.5 L, Chloride 102, Carbon Dioxide 31, Anion Gap 13, BUN 11, Creatinine 0.6 L, Est GFR ( Amer) > 60, Est GFR ( Non-Af Amer) > 60, Random Glucose 124 H, Calcium 9.1, Total Bilirubin 0.2, AST 26, ALT 27, Alkaline Phosphatase 87, Total Protein 6.4, Albumin 3.7, Globulin 2.7, Albumin/Globulin Ratio 1.4, Amylase 49, Lipase 63 - RAD Interpretation Radiology Orders: 11/28/17 22:44 ABD & PELVIS IV CONTRAST ONLY [CT] Stat - Medication Orders Current Medication Orders: Discontinued Medications Sodium Chloride (Sodium Chloride 0.9%) 1,000 mls @ 100 mls/hr IV .Q10H STA Stop: 11/29/17 06:54 Last Admin: 11/28/17 21:33 Dose: 100 mls/hr eMAR Start Stop Document 11/28/17 21:33 (Rec: 11/28/17 21:33 [facility]-[id number]) Intravenous Solution Start Date 04/20/18 Start Time 21:33 Ondansetron HCl (Zofran Inj) 4 mg IVP STAT STA Stop: 11/28/17 22:42 Last Admin: 11/28/17 23:38 Dose: 4 mg IVP Administration Document 11/28/17 23:38 (Rec: 11/28/17 23:38 [facility]-[id number]) Charges for Administration # of IVP Administrations 1 - Scribe Statement The provider has reviewed the documentation as recorded by the Scribe Kobe Batres. All medical record entries made by the Scribe were at my direction and personally dictated by me. I have reviewed the chart and agree that the record accurately reflects my personal performance of the history, physical exam, medical decision making, and the department course for this patient. I have also personally directed, reviewed, and agree with the discharge instructions and disposition. Disposition/Present on Arrival - Present on Arrival Any Indicators Present on Arrival: No History of DVT/PE: No History of Uncontrolled Diabetes: No Urinary Catheter: No History of Decub. Ulcer: No History Surgical Site Infection Following: None - Disposition Have Diagnosis and Disposition been Completed?: Yes Diagnosis: Abdominal pain Disposition: HOME/ ROUTINE Disposition Time: 06:19 Patient Plan: Discharge Condition: FAIR Discharge Instructions (ExitCare): Acute Abdomen (Belly Pain) Print Language: BURKINAN Prescriptions: Prochlorperazine [Compazine Rectal Supp] 25 mg RC BID PRN #10 sup PRN Reason: Nausea/Vomiting Referrals: Chau Cardenas DO [Primary Care Provider] - Follow up with primary Forms: [employer] (Romanian)
[2017-11-28 21:54] LABS: BASO # 0.01 K/mm3 (0.0-2.0); BASO % 0.2 % (0.0-3.0); EOS % 0.7 % (1.5-5.0); GRAN # 4.17 (1.4-6.5); GRAN % 74.8 % (50.0-68.0); HEMOGLOBIN 12.4 g/dL (12.0-16.0); LYMPH # 0.9 (1.2-3.4); MEAN CELL VOLUME 93.7 fl (80.0-105.0); MEAN CORPUSCULAR HEMOGLOBIN 31.4 pg (25.0-35.0); MEAN CORPUSCULAR HGB CONC 33.5 g/dl (31.0-37.0); MEAN PLATELET VOLUME 9.7 fl (7.0-11.0); MONO # 0.5 (0.1-0.6); MONO % 8.3 % (1.0-6.0); RBC 3.95 10^6/uL (3.5-6.1); RED CELL DISTRIBUTION WIDTH 13.8 % (11.5-14.5); WHITE BLOOD COUNT 5.6 10^3/ul (4.5-11.0)
[2017-11-28 22:13] LABS: ALB/GLOB RATIO 1.4 (1.1-1.8); ALBUMIN 3.7 g/dL (3.0-4.8); ALT/SGPT 27 U/L (7-56); AMYLASE 49 U/L (35-125); AST/SGOT 26 U/L (14-36); BLOOD UREA NITROGEN 11 mg/dL (7-21); CALCIUM 9.1 mg/dL (8.4-10.5); GFR AFRICAN-AMERICAN > 60; GFR NON-AFRICAN AMERICAN > 60; LIPASE 63 U/L (23-300)
[2017-11-28 23:16] LABS: URINE BILIRUBIN NEGATIVE (NEGATIVE); URINE BLOOD NEGATIVE (NEGATIVE); URINE GLUCOSE (UA) NEGATIVE (NEGATIVE); URINE LEUKOCYTE ESTERASE NEGATIVE Leu/uL (NEGATIVE); URINE PROTEIN TRACE mg/dL (<30 mg/dL); URINE UROBILINOGEN 0.2 E.U./dL (<1 E.U./dL)
[2017-11-28 23:18] LABS: URINE APPEARANCE SL CLOUDY (CLEAR); URINE COLOR YELLOW (YELLOW)
[2017-11-28 23:33] LABS: URINE RBC 0 - 2 /hpf (0-2); URINE WBC 0 - 2 /hpf (0-6)
[2017-11-28 23:34] LABS: URINE AMORPHOUS SEDIMENT MODERATE
[2017-11-28 23:35] LABS: URINE BACTERIA FEW (NEG)
[2017-11-28] MEDS ORDERED: Iohexol 350 MG/100 ML VIAL ONE (23:47)
--- NOTE | 2017-11-29 01:29 | CT ---
EXAM: CT Abdomen and Pelvis With Intravenous Contrast EXAM DATE/TIME: 11/28/2017 10:44 PM CLINICAL HISTORY: 77 years old, female; Pain; Abdominal pain; Acute TECHNIQUE: Axial computed tomography images of the abdomen and pelvis with intravenous contrast. All CT scans at this facility use one or more dose reduction techniques, viz.: automated exposure control; ma/kV adjustment per patient size (including targeted exams where dose is matched to indication; i.e. head); or iterative reconstruction technique. Coronal reformatted images were created and reviewed. CONTRAST: 100 mL of OMNI 350 administered intravenously. COMPARISON: CT - ABD PELVIS W/O PO OR IV CONT 2017-11-12 18:57 FINDINGS: Platelike atelectasis left lower lung. There is stable biliary ductal prominence. Correlation with laboratory values may be helpful The spleen is normal. The pancreas is normal. There is a stable 3.2 cm right renal cyst. The anterior right wall of the urinary bladder appears slightly thickened and indistinct possibly representing cystitis. Recommend correlation with urinalysis. The colon is distended with stool consistent with constipation. A normal appendix is identified axial images 108 through 114. There continues to be wall thickening of the distal rectum and anus likely representing proctitis although concurrent underlying lesion would be difficult to exclude and followup with direct endoscopic visualization may be helpful. Left femoral hardware. IMPRESSION: Continued wall thickening of the rectoanal junction likely representing proctitis although concurrent underlying lesion would be difficult to exclude and followup with direct endoscopic visualization may be helpful. Constipation. Possible cystitis as discussed above.Recommend correlation with urinalysis. Awaiting reconstructions. Will addend when they arrive.
[2017-11-29 01:59] VITALS: BP 138/76; PULSE 75; RESP 18; TEMP 98.2
== END 2017-11-29 02:09 | disposition home or self-care (01) ==
LOC: ED 20:36
DX: R10.9 Unspecified abdominal pain (principal); I10 Essential (primary) hypertension; Z86.73 Personal history of transient ischemic attack (TIA), and cerebral infarction without residual deficits; Z90.49 Acquired absence of other specified parts of digestive tract
CPT/HCPCS: 74177; 80053; 81001; 82150; 83690; 85025; 96374; 99281; J2405; J7040; Q9967

== ENCOUNTER 2018-03-08 19:09 | Observation (INO) | payer MEDICARE, MEDICAID ==
[2018-03-08 19:22] VITALS: BMI 14.8
[2018-03-08 20:15] LABS: ALB/GLOB RATIO 1.3 (1.1-1.8); ALBUMIN 3.5 g/dL (3.0-4.8); CALCIUM 8.8 mg/dL (8.4-10.5); GFR AFRICAN-AMERICAN > 60; GFR NON-AFRICAN AMERICAN > 60
--- NOTE | 2018-03-08 20:15 | ED PDOC ---
Arrival/HPI - General Chief Complaint: GI Problem Time Seen by Provider: 03/08/18 19:38 Historian: Patient - History of Present Illness Narrative History of Present Illness (Text): 03/08/18 19:43 A 78 year old female, whose past medical history includes hypertension, hyperlipidemia, TIA, dementia, gerd, and constipation, presents to the emergency department for evaluation of slight change in mental status associated with 1 episode of vomiting and some questionable abdominal discomfort. Patient has no history of fever, diarrhea, or any other symptoms at this time. 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 - HEENT Hx HEENT Disorder: Yes Hx Difficulty Chewing: Yes - Renal Hx Renal Disorder: No - Endocrine/Metabolic Hx Endocrine Disorders: No - Hematological/Oncological Hx Blood Transfusions: (UNKNOWN) Hx Blood Transfusion Reaction: (UNKNOWN) - Integumentary Hx Dermatological Disorder: No - Musculoskeletal/Rheumatological Hx Musculoskeletal Disorders: Yes Hx Arthritis: Yes (rheumatoid arthritis) Hx Falls: Yes - Gastrointestinal Hx Gastrointestinal Disorders: Yes (hemorrhoids) Hx Gastroesophageal Reflux: Yes - Genitourinary/Gynecological Hx Genitourinary Disorders: Yes Hx Incontinence: Yes - Psychiatric Hx Psychophysiologic Disorder: Yes Hx Anxiety: Yes Hx Depression: Yes Hx Substance Use: No - Surgical History Hx Orthopedic Surgery: Yes (right hip and left shoulder, left leg with metal) Other/Comment: metal implants - Anesthesia Hx Anesthesia: Yes Hx Anesthesia Reactions: No Hx Malignant Hyperthermia: No Family/Social History - Physician Review Nursing Documentation Reviewed: Yes Family/Social History: No Known Family HX Smoking Status: Never Smoked Hx Alcohol Use: No Hx Substance Use: No Allergies/Home Meds Allergies/Adverse Reactions: Allergies shellfish derived Allergy (Verified 03/08/18 19:28) RASH oxycodone HCl [From Percocet] Adverse Reaction (Intermediate, Verified 03/08/18 19:28) DIZZINESS Home Medications: Home Meds Medication Instructions Recorded Confirmed Aspirin [Aspirin EC] 81 mg PO DAILY 09/18/16 03/08/18 Sertraline [Zoloft] 100 mg PO ONCE 09/18/16 03/08/18 traZODone [Desyrel] 200 mg PO HS 09/18/16 03/08/18 Pantoprazole [Protonix EC Tab] 40 mg PO DAILY 11/04/16 03/08/18 Atorvastatin [Lipitor] 20 mg PO DAILY 03/26/17 03/08/18 Calcium Carbonate/Vitamin D3 1 tab PO DAILY 03/26/17 03/08/18 [Calcium 600+D Softgel] Losartan [Cozaar] 25 mg PO DAILY 03/26/17 03/08/18 Temazepam [Restoril] 30 mg PO HS 03/26/17 03/08/18 carBAMazepine [Tegretol] 200 mg PO HS 03/26/17 03/08/18 carBAMazepine [TEGretol-XR] 100 mg PO BID 11/06/17 03/08/18 Review of Systems - Physician Review All systems were reviewed & negative as marked: Yes - Review of Systems Constitutional: absent: Fevers, Night Sweats Respiratory: absent: SOB, Cough Cardiovascular: absent: Chest Pain Gastrointestinal: Abdominal Pain (some questionable abdominal discomfort), Vomiting (1 episode). absent: Constipation, Diarrhea, Nausea Neurological: absent: Headache, Dizziness Physical Exam Vital Signs Reviewed: Yes Vital Signs Temp Pulse Resp BP Pulse Ox 03/08/18 19:17 97.7 F 67 18 128/66 98 Temperature: Afebrile Blood Pressure: Normal Pulse: Regular Respiratory Rate: Normal Appearance: Positive for: Well-Appearing, Non-Toxic, Comfortable Pain Distress: None Mental Status: Positive for: Alert and Oriented X 3 Finger Stick Blood Glucose: 96 - Systems Exam Head: Present: Atraumatic, Normocephalic Pupils: Present: PERRL Extroacular Muscles: Present: EOMI Conjunctiva: Present: Normal Mouth: Present: Moist Mucous Membranes Neck: Present: Normal Range of Motion Respiratory/Chest: Present: Clear to Auscultation, Good Air Exchange. No: Respiratory Distress, Accessory Muscle Use Cardiovascular: Present: Regular Rate and Rhythm, Normal S1, S2. No: Murmurs Abdomen: Present: Normal Bowel Sounds. No: Tenderness, Distention, Peritoneal Signs Back: Present: Normal Inspection Upper Extremity: Present: Normal Inspection. No: Cyanosis, Edema Lower Extremity: Present: Normal Inspection. No: Edema Neurological: Present: GCS=15, CN II-XII Intact, Speech Normal, Other (no focal/ motor deficits) Skin: Present: Warm, Dry, Normal Color. No: Rashes Psychiatric: Present: Alert, Oriented x 3, Normal Insight, Normal Concentration Medical Decision Making ED Course and Treatment: 03/08/18 19:47 Impression: 78 year old female with slight change in mental status with associated 1 episode of vomiting and some questionable abdominal discomfort. Plan: -- EKG -- Head CT -- Abd/Pelvis CT -- Chest X-ray -- Labs -- Urinalysis -- Reassess and disposition Progress Notes: Reviewed EKG, NSR at 65 bpm. Septal infarct. Non-specific ST/T wave changes. 03/08/18 21:15 Reviewed radiology, Chest X-ray reviewed, shows no acute processes. CT Head shows: Brain: There are areas of diminished density in the white matter bilaterally consistent with chronic small vessel ischemic changes. Osborne-white matter differentiation is intact and unremarkable. No mass lesion. No evidence of intracranial hemorrhage. Ventricles: Unremarkable. No ventriculomegaly. Bones/joints: Unremarkable. No acute fracture. Soft tissues: Unremarkable. Sinuses: Unremarkable as visualized. No acute sinusitis. Mastoid air cells: Unremarkable as visualized. No mastoid effusion. IMPRESSION: Chronic ischemic changes bilaterally. CT Abdomen and Pelvis shows: Lung bases: 4 mm nodule in the left lung base. This nodule was not included in [id number] on prior study of November but appears to have been present on prior study of November 06 and appear to have calcification centrally on prior study suggesting calcific granuloma. Calcification is not well-seen on the current study. ABDOMEN: Liver: See below. Gallbladder and bile ducts: Distended CBD again seen now measuring up to 20 mm. CBD appears more prominent compared to prior study. No intrahepatic ductal dilatation seen. No calcified stones. Pancreas: Unremarkable. No ductal dilation. Spleen: Unremarkable. No splenomegaly. Adrenals: Unremarkable. No mass. Kidneys and ureters: 3.2 cm right renal cyst. No obstructing stones. No hydronephrosis. Stomach and bowel: Large amount of stool in the rectum rectum measures 8.6 x 7.5 cm in axial dimension. There appears to be mild stranding of perirectal fat posterior to the rectum seen on axial images 65-69. Large amount of stool in the colon. No mucosal thickening. PELVIS: Appendix: No findings to suggest acute appendicitis. Bladder: Unremarkable. No stones. Reproductive: Unremarkable as visualized. ABDOMEN and PELVIS: Intraperitoneal space: Unremarkable. No free air. No significant fluid collection. Bones/joints: Degenerative changes in the spine. No evidence of fracture. Left proximal femoral internal fixation rods with adjacent streak artifact. No dislocation. Soft tissues: See above. Vasculature: Unremarkable. No abdominal aortic aneurysm. Lymph nodes: Unremarkable. No enlarged lymph nodes. IMPRESSION: 1. 4 mm nodule in the left lung base. This nodule was not included in field-of- view on prior study of November but appears to have been present on prior study of November 06 and appear to have calcification centrally on prior study suggesting calcific granuloma. Calcification is not well-seen on the current study. For low-risk patients, no follow-up is necessary. For high-risk patients (smoking history or other known risk factors) an optional chest CT at 12 months could be performed. 2. Distended CBD again seen now measuring up to 20 mm. CBD appears more prominent compared to prior study. No intrahepatic ductal dilatation seen. Please correlate with previous workup. Apparent increase in size of the CBD could be secondary to measurement technique and difference related to noncontrast nature of the study. 3. Large amount of stool in the rectum rectum measures 8.6 x 7.5 cm in axial dimension. There appears to be mild stranding of perirectal fat posterior to the rectum seen on axial images 65-69. Large amount of stool in the colon. Stool impaction with stercoral colitis should be considered clinically. 03/08/18 21:[address] Cardenas, who is aware and agrees with plan. Accepts pt in to his service. Pt will go to [facility] observation for abdominal pain. Requests Dr. Carrion on consult. - Lab Interpretations Lab Results: 03/08/18 19:45 03/08/18 19:45 Lab Results 03/08/18 19:45: WBC 8.4 D, RBC 3.81, Hgb 11.6 L, Hct 35.8 L, MCV 94.0, MCH 30.4 , MCHC 32.4, RDW 13.8, Plt Count 168, MPV 9.8 03/08/18 19:45: Sodium 144, Potassium 4.0, Chloride 104, Carbon Dioxide 29, Anion Gap 14, BUN 16, Creatinine 0.5 L, Est GFR ( Amer) > 60, Est GFR ( Non-Af Amer) > 60, Random Glucose 107, Calcium 8.8, Total Bilirubin 0.3, AST 30 , ALT 25, Alkaline Phosphatase 77, Lactate Dehydrogenase 607, Total Creatine Kinase 58, Troponin I < 0.01, Total Protein 6.2, Albumin 3.5, Globulin 2.8, Albumin/Globulin Ratio 1.3 03/08/18 19:45: PT 12.5, INR 1.09 H, APTT 26.8 I have reviewed the lab results: Yes - RAD Interpretation Radiology Orders: 03/08/18 19:41 HEAD W/O CONTRAST [CT] Stat CHEST PORTABLE [RAD] Stat 03/08/18 19:47 ABD & PELVIS W/O PO OR IV CONT [CT] Stat Plant Etiologist: ED Physician, Radiologist - EKG Interpretation Interpreted by ED Physician: Yes Type: 12 lead EKG - Scribe Statement The provider has reviewed the documentation as recorded by the Malorieibanna Cazares Provider Scribe Provider Scribe Attestation: All medical record entries made by the Amena were at my direction and personally dictated by me. I have reviewed the chart and agree that the record accurately reflects my personal performance of the history, physical exam, medical decision making, and the department course for this patient. I have also personally directed, reviewed, and agree with the discharge instructions and disposition. Disposition/Present on Arrival - Present on Arrival Any Indicators Present on Arrival: No History of DVT/PE: No History of Uncontrolled Diabetes: No Urinary Catheter: No History of Decub. Ulcer: No History Surgical Site Infection Following: None - Disposition Have Diagnosis and Disposition been Completed?: Yes Diagnosis: Abdominal pain Disposition: HOSPITALIZED Disposition Time: 21:38 Condition: STABLE Forms: [employer] ([place])
[2018-03-08 20:18] LABS: HEMOGLOBIN 11.6 g/dL (12.0-16.0); MEAN CORPUSCULAR HEMOGLOBIN 30.4 pg (25.0-35.0); MEAN CORPUSCULAR HGB CONC 32.4 g/dl (31.0-37.0); MEAN PLATELET VOLUME 9.8 fl (7.0-11.0); RBC 3.81 10^6/uL (3.5-6.1); RED CELL DISTRIBUTION WIDTH 13.8 % (11.5-14.5); WHITE BLOOD COUNT 8.4 10^3/ul (4.5-11.0)
[2018-03-08 20:24] LABS: INR 1.09 (0.93-1.08); PARTIAL THROMBOPLASTIN TIME 26.8 Seconds (25.1-36.5); PROTHROMBIN TIME 12.5 SECONDS (9.4-12.5)
[2018-03-08 20:26] LABS: TROPONIN I < 0.01 ng/mL
[2018-03-08 20:33] LABS: ALT/SGPT 25 U/L (7-56); AST/SGOT 30 U/L (14-36); BLOOD UREA NITROGEN 16 mg/dL (7-21)
[2018-03-08] MEDS ORDERED: Sodium Chloride 0.9% 1,000 ML IV STA ×2 (21:40→22:08)
[2018-03-09 07:24] VITALS: RESP 16
--- NOTE | 2018-03-09 08:34 | RAD ---
Date of service: 03/08/2018 HISTORY: ams COMPARISON: No prior. FINDINGS: LUNGS: No active pulmonary disease. PLEURA: No significant pleural effusion identified, no pneumothorax apparent. CARDIOVASCULAR: Normal. OSSEOUS STRUCTURES: No significant abnormalities. VISUALIZED UPPER ABDOMEN: Normal. OTHER FINDINGS: None. IMPRESSION: No active disease.
[2018-03-09] MEDS ORDERED: Sodium Chloride 0.45% 1,000 ML IV SCH (08:45)
--- NOTE | 2018-03-09 08:53 | CP.PCM.CON ---
<Marya Mckeon - Last Filed: 03/09/18 09:58> History of Present Illness - History of Present Illness History of Present Illness: GI Fellow PGY5 Consult Note This is a 78yo female with PMHx significant for HTN, HLD, depression/anxiety,TIA /CVA, dementia, trigeminal neuralgia, GERD, chronic constipation who presented to the ED AMS, one episode of emesis and possible abdominal pain. The patient is unable to provide any history given mentation, thus history obtained from EMR and RNs. Pt apparently had not had a BM for days and complained of diffuse abdominal pain. Constipation has been an issue for a long time with multiple admissions. Per nursing pt had a large BM overnight. CT imaging reviewed with large amount of stool in rectum and CBD measuring 20mm. Pt had a EGD 09/2016- Erosive gastritis, path neg for H.pylori. Flex sig 11/2017 for concern for possible volvulus on CT imaging-negative for mass lesions, normal mucousa, no biopsy ROS: 12 system ROS limited given mentation PMHx: See HPI PSHx: Hip/shoulder, cholecystectomy, appendectomy FHx: Neg for colon cancer Social: No tobacco, EtOH or illicit drug use Past Patient History - Infectious Disease Hx of Infectious Diseases: None - Tetanus Immunizations Tetanus Immunization: Unknown - Past Social History Smoking Status: Never Smoked - CARDIAC Hx Cardiac Disorders: Yes Hx Hypertension: Yes - PULMONARY Hx Respiratory Disorders: No - NEUROLOGICAL Hx Neurological Disorder: Yes 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 - HEENT Hx HEENT Problems: Yes Hx Difficulty Chewing: Yes - RENAL Hx Chronic Kidney Disease: No - ENDOCRINE/METABOLIC Hx Endocrine Disorders: No - HEMATOLOGICAL/ONCOLOGICAL Hx Blood Disorders: No - INTEGUMENTARY Hx Dermatological Problems: No - MUSCULOSKELETAL/RHEUMATOLOGICAL Hx Musculoskeletal Disorders: Yes Hx Arthritis: Yes (rheumatoid arthritis) Hx Falls: Yes - GASTROINTESTINAL Hx Gastrointestinal Disorders: Yes (hemorrhoids) Hx Gastroesophageal Reflux: Yes - GENITOURINARY/GYNECOLOGICAL Hx Genitourinary Disorders: Yes Hx Incontinence: Yes - PSYCHIATRIC Hx Psychophysiologic Disorder: Yes Hx Anxiety: Yes Hx Depression: Yes - SURGICAL HISTORY Hx Orthopedic Surgery: Yes (right hip and left shoulder, left leg with metal) Other/Comment: metal implants - ANESTHESIA Hx Anesthesia: Yes Hx Anesthesia Reactions: No Hx Malignant Hyperthermia: No Meds Allergies/Adverse Reactions: Allergies Allergy/AdvReac Type Severity Reaction Status Date / Time shellfish derived Allergy RASH Verified 03/08/18 19:28 oxycodone HCl [From Percocet] AdvReac Intermediate DIZZINESS Verified 03/08/18 19:28 - Medications Medications: Current Medications Aspirin (Ecotrin) 81 mg PO DAILY ZEINAB Carbamazepine (Tegretol) 200 mg PO HS ZEINAB PRN Reason: Protocol Sodium Chloride (Sodium Chloride 0.45%) 1,000 mls @ 60 mls/hr IV .[id number] ZEINAB Pantoprazole Sodium (Protonix 40mg Ivpb) 40 mg in 100 mls @ 200 mls/hr IVPB 0600 ZEINAB Losartan Potassium (Cozaar) 25 mg PO DAILY ZEINAB Non-Formulary Medication (Carbamazepine [Tegretol-Xr]) 100 mg PO BID ZEINAB Non-Formulary Medication (Temazepam [Restoril]) 30 mg PO HS ZEINAB Ondansetron HCl (Zofran Inj) 4 mg IVP Q6H PRN PRN Reason: Nausea/Vomiting Stop: 03/09/18 09:00 Polyethylene Glycol (Miralax) 17 gm PO TID ZEINAB Sertraline HCl (Zoloft) 100 mg PO ONCE ZEINAB Trazodone HCl (Desyrel) 200 mg PO HS ZEINAB Physical Exam - Constitutional Appears: Older Than Stated Age, Agitated, Confused, Chronically Ill - Head Exam Head Exam: ATRAUMATIC, NORMAL INSPECTION, NORMOCEPHALIC - Eye Exam Eye Exam: EOMI, Normal appearance, PERRL - ENT Exam ENT Exam: Mucous Membranes Dry - Respiratory Exam Respiratory Exam: Decreased Breath Sounds, NORMAL BREATHING PATTERN - Cardiovascular Exam Cardiovascular Exam: RRR - GI/Abdominal Exam GI & Abdominal Exam: Normal Bowel Sounds, Soft, Tenderness. absent: Diminished Bowel Sounds, Distended, Guarding, Organomegaly - Neurological Exam Neurological exam: Alert - Psychiatric Exam Psychiatric exam: Agitated - Skin Skin Exam: Dry, Intact, Normal Color, Warm Results - Vital Signs Recent Vital Signs: Last Vital Signs Temp 98.1 F 03/09/18 06:23 Pulse 81 03/09/18 06:23 Resp 16 03/09/18 06:23 BP 112/76 03/09/18 06:23 Pulse Ox 99 03/09/18 06:23 - Labs Result Diagrams: 03/08/18 19:45 03/08/18 19:45 Assessment & Plan - Assessment and Plan (Free Text) Assessment: Patient is a 78yo female with PMHx significant for HTN, HLD, depression/anxiety , TIA/CVA, dementia, trigeminal neuralgia, GERD, chronic constipation who presented to the ED for AMS, emesis and possible abdominal pain. 1. Severe constipation 2. Dementia 3. GERD Plan: -Continue supportive care -CT imaging reviewed with large stool in rectum -Recommend aggressive bowel regimen with tap water enemas as tolerated by patient -Start and continue patient on Miralax 17g PO TID -Adequate hydration and oral intake encouraged -PTOT -Prior flex sigm 11/2017 reviewed -Patient may benefit from outpatient initiation of agent such as Linzess or Amitiza -Diet as tolerated -PPI daily -Anti emetics prn -Will continue to follow pt closely <Eleazar Jc - Last Filed: 03/10/18 10:01> Results - Vital Signs Recent Vital Signs: Last Vital Signs Temp 98.7 F 03/09/18 14:00 Pulse 70 03/09/18 14:00 Resp 16 03/09/18 14:00 BP 142/77 03/09/18 14:00 Pulse Ox 96 03/09/18 14:00 - Labs Result Diagrams: 03/08/18 19:45 03/08/18 19:45 Attending/Attestation - Attestation I have personally seen and examined this patient.: Yes I have fully participated in the care of the patient.: Yes I have reviewed all pertinent clinical information: Yes Notes (Text): 03/10/18 09:51 Patient seen and examined at bedside this am. This is a 78 year old female with PMHx significant for HTN, HLD, depression/anxiety, TIA/CVA, dementia, trigeminal neuralgia, GERD, chronic constipation who presented to the ED for AMS , emesis and possible abdominal pain with stool on CT scan in colon. Will start stool softeners and Continue supportive care. Patient may benefit from outpatient initiation of agent such as Linzess or Amitiza
--- NOTE | 2018-03-09 08:56 | CT ---
Date of service: 03/08/2018 PROCEDURE: CT HEAD WITHOUT CONTRAST. HISTORY: ams COMPARISON: None available. TECHNIQUE: Axial computed tomography images were obtained through the head/brain without intravenous contrast. Radiation dose: Total exam DLP = mGy-cm. This CT exam was performed using one or more of the following dose reduction techniques: Automated exposure control, adjustment of the mA and/or kV according to patient size, and/or use of iterative reconstruction technique. FINDINGS: HEMORRHAGE: No intracranial hemorrhage. BRAIN: No mass effect or edema. No atrophy or chronic microvascular ischemic changes. VENTRICLES: Unremarkable. No hydrocephalus. CALVARIUM: Unremarkable. PARANASAL SINUSES: Unremarkable as visualized. No significant inflammatory changes. MASTOID AIR CELLS: Unremarkable as visualized. No inflammatory changes. OTHER FINDINGS: None. IMPRESSION: Normal CT of the Head.
[2018-03-09] MEDS ORDERED: Aspirin 325 mg EC Tablets PO SCH (10:00)
--- NOTE | 2018-03-09 10:10 | CARD ---
APPROVED REPORT Date of service: 03/08/2018 EKG Measurement Heart [id number] <Conclusion> Normal sinus rhythm Septal infarct, age undetermined Abnormal ECG
--- NOTE | 2018-03-09 10:24 | CT ---
Date of service: 03/08/2018 PROCEDURE: CT Abdomen and Pelvis without intravenous contrast HISTORY: vomiting/abdominal pain COMPARISON: None. TECHNIQUE: Technique. Contrast dose: Radiation dose: Total exam DLP = mGy-cm. This CT exam was performed using one or more of the following dose reduction techniques: Automated exposure control, adjustment of the mA and/or kV according to patient size, and/or use of iterative reconstruction technique. FINDINGS: LOWER THORAX: 4 millimeter nodule at the right lung base. LIVER: Unremarkable. No gross lesion or ductal dilatation. GALLBLADDER AND BILE DUCTS: Dilated extrahepatic common bowel duct compatible with post cholecystectomy state. PANCREAS: Unremarkable. No gross lesion or ductal dilatation. SPLEEN: Unremarkable. ADRENALS: Unremarkable. No mass. KIDNEYS AND URETERS: 2.9 centimeter right renal cyst. . No hydronephrosis. No solid mass. VASCULATURE: Unremarkable. No aortic aneurysm. BOWEL: Distended rectum ; correlate for fecal impaction. No obstruction. No gross mural thickening. APPENDIX: Unremarkable. Normal appendix. PERITONEUM: Unremarkable. No free fluid. No free air. LYMPH NODES: Unremarkable. No enlarged lymph nodes. BLADDER: Unremarkable. REPRODUCTIVE: Unremarkable. BONES: No acute fracture. OTHER FINDINGS: None. IMPRESSION: Distended rectum ; correlate for fecal impaction. No bowel related phlegmon or abscess.
--- NOTE | 2018-03-09 10:30 | HP ---
HISTORY OF PRESENT ILLNESS: I know Erica very well from house calls and from multiple hospital admissions. She is having some abdominal pain, I understand. She comes in, the family has a hard time taking care of her at home. She is a 78-year-old white female who presents with slight change in mental status, one episode of vomiting, some abdominal discomfort and they brought her to the Emergency Room. PAST MEDICAL HISTORY: Hypertension, high cholesterol, TIA, dementia, GERD, constipation. She was on hospice, she is now off hospice. She has TMJ of the right jaw. She has difficulty chewing. She is bedridden. She has rheumatoid arthritis, multiple falls, hemorrhoids, GERD, incontinence of urine, anxiety, depression. She had right hip, left shoulder, left leg surgeries, metal implants. FAMILY HISTORY: Hypertension in the family. SOCIAL HISTORY: Never smoked. No alcohol, no drugs. ALLERGIES: SHE IS ALLERGIC TO SHELLFISH AND OXYCODONE. MEDICATIONS: She takes aspirin, Zoloft, Desyrel, Protonix, Lipitor, calcium, Cozaar, Restoril, Tegretol XR. REVIEW OF SYSTEMS: She is having one-time throw up and some abdominal pain. No shortness of breath. No fevers. No chest pain. No diarrhea. No constipation. No headaches or dizziness. She is alert and talks a little bit, but very faint. PHYSICAL EXAMINATION: VITAL SIGNS: Temperature 97.7, 67 pulse, 18 respiratory rate, 128/66 blood pressure, 98% sat on room air. GENERAL: Well appearing, a little bit uncomfortable. Alert and oriented x3. HEENT: Head is atraumatic, normocephalic. Extraocular muscles are intact. Pupils equal and reactive to light. Throat is moist. NECK: Supple. HEART: Regular rate. Normal S1, S2. LUNGS: Clear to auscultation. ABDOMEN: Soft, nontender. Positive bowel sounds. No guarding, no rebound, no CVA tenderness. EXTREMITIES: She is contracted, all four extremities. No edema. NEUROLOGICAL: Cranial nerves II-XII grossly intact. GCS 15. SKIN: Warm and dry. Some redness in the back. Thyroid midline. No palpable lymphadenopathy appreciated. DATA: EKG showed septal infarct, nonspecific T-wave changes. CAT scan of the head shows chronic ischemic changes. CAT scan of the abdomen and pelvis showed intraperitoneal space unremarkable, 4-mm nodule in the left lung base, distended common bile duct measuring up to 20. Large amount of stool in the rectum. She has an 8.4 white count, 11.6, hemoglobin, 35.8 hematocrit with 168 platelets. Sodium 144, potassium 4, chloride 104, carbon dioxide 20, anion gap of 14, BUN 16, creatinine 0.5. GFR is greater than 60, sugar is 107, calcium is 8.8, total bili is 0.3, AST is 30, ALT is 25, alkaline phosphatase 77, lactate dehydrogenase of 607. Troponin I less than 0.01, total protein 6.2. INR is 1.09. This is a consult with GI. She is n.p.o. except for medications. She is off IV fluids, back on her medications, IV Protonix; if it is okay with GI and she does well, maybe she can eat regular for lunch and could discharge her later today. She is on observation. She is here for abdominal pain, nausea, vomiting. Awaiting the GI evaluation. Chau Cardenas DO
[2018-03-09] MEDS: CARBAMAZEPINE 100 MG PO SCH ×2 (10:55→18:22)
[2018-03-09] MEDS: POLYETHYLENE GLYCOL 3350 17 GM/Dose PACKET PO SCH ×3 (10:55→18:26)
--- NOTE | 2018-03-09 15:00 | RAD ---
Date of service: 03/09/2018 PROCEDURE: Radiographs of the Sacrum and Coccyx HISTORY: pain COMPARISON: CT scan of the abdomen pelvis dated 03/08/2018. TECHNIQUE: Frontal and lateral views of the sacrum and coccyx FINDINGS: BONES: Markedly limited examination due to osteopenia as well as suboptimal technique. SACROILIAC JOINTS: Poorly evaluated. OTHER FINDINGS: None. IMPRESSION: Markedly limited examination. If there is clinical concern for occult fracture, MRI of the bony pelvis can be obtained for further evaluation as clinically warranted.
--- NOTE | 2018-03-09 15:30 | CP.PCM.CON ---
History of Present Illness - History of Present Illness History of Present Illness: Surgery Consult: Dr. Vallejo Pt is a 78 yo F with a PMH of HTN, TIA, dementia, GERD, RA, urinary incontinence , constipation & hemorrhoids who was brought to [facility] [place] with complaints of abdominal pain. The patient has dementia & is unable to provide history which was obtained from the medical chart. Pt is bedridden with hx of multiple falls in the past. Surgery consulted for sacral ulcer evaluation. In the ER, pt had a CT abdomen/pelvis which was unremarkable except for constipation & stool impaction in rectum. Currently, pt is resting in bed. Unable to provide a review of systems secondary to dementia. PMHx: as stated above PSHx: L hip & shoulder surgeries SocialHx: no hx of smoking/EtOh FH: HTN All: shellfish and oxycodone. 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 - HEENT Hx HEENT Problems: Yes Hx Difficulty Chewing: Yes - RENAL Hx Chronic Kidney Disease: No - ENDOCRINE/METABOLIC Hx Endocrine Disorders: No - HEMATOLOGICAL/ONCOLOGICAL Hx Blood Disorders: No - INTEGUMENTARY Hx Dermatological Problems: Yes Other/Comment: Sacral ulcer stage 2 - MUSCULOSKELETAL/RHEUMATOLOGICAL Hx Musculoskeletal Disorders: Yes Hx Arthritis: Yes (rheumatoid arthritis) Hx Falls: Yes - GASTROINTESTINAL Hx Gastrointestinal Disorders: Yes (hemorrhoids) Hx Gastroesophageal Reflux: Yes - GENITOURINARY/GYNECOLOGICAL Hx Genitourinary Disorders: Yes Hx Incontinence: Yes - PSYCHIATRIC Hx Psychophysiologic Disorder: Yes Hx Anxiety: Yes Hx Depression: Yes - SURGICAL HISTORY Hx Orthopedic Surgery: Yes (right hip and left shoulder, left leg with metal) Other/Comment: metal implants - ANESTHESIA Hx Anesthesia: Yes Hx Anesthesia Reactions: No Hx Malignant Hyperthermia: No Meds Allergies/Adverse Reactions: Allergies Allergy/AdvReac Type Severity Reaction Status Date / Time shellfish derived Allergy RASH Verified 03/08/18 19:28 oxycodone HCl [From Percocet] AdvReac Intermediate DIZZINESS Verified 03/08/18 19:28 - Medications Medications: Current Medications Aspirin (Ecotrin) 81 mg PO DAILY ZEINAB Carbamazepine (Tegretol) 200 mg PO [facility] PRN Reason: Protocol Sodium Chloride (Sodium Chloride 0.45%) 1,000 mls @ 60 mls/hr IV .[id number] [facility] Last Admin: 03/09/18 10:37 Dose: 60 mls/hr Losartan Potassium (Cozaar) 25 mg PO DAILY [facility] Last Admin: 03/09/18 10:54 Dose: 25 mg Carbamazepine [ Tegretol-Xr] 100 Mg (Home Med) 100 mg PO BID [facility] Last Admin: 03/09/18 10:55 Dose: Not Given Temazepam [Restoril] (30 Mg (Home Med)) 30 mg PO [facility] Pantoprazole Sodium (Protonix Inj) 40 mg IVP 0600 [facility] Polyethylene Glycol (Miralax) 17 gm PO TID [facility] Last Admin: 03/09/18 10:55 Dose: 17 gm Sertraline HCl (Zoloft) 100 mg PO ONCE [facility] Last Admin: 03/09/18 10:54 Dose: 100 mg Trazodone HCl (Desyrel) 200 mg PO [facility] Physical Exam - Constitutional Appears: No Acute Distress - Head Exam Head Exam: ATRAUMATIC, NORMOCEPHALIC - Eye Exam Eye Exam: Normal appearance - Respiratory Exam Respiratory Exam: NORMAL BREATHING PATTERN - Cardiovascular Exam Cardiovascular Exam: RRR - GI/Abdominal Exam GI & Abdominal Exam: Soft - Rectal Exam Rectal Exam: absent: Fecal Impaction Additional comments: No mass, good sphincter tone with soft stool in rectal vault, no internal hemorrhoids - Back Exam Additional comments: stage 2 sacral ulcer 1x1cm, no exudate or drainage noted - Neurological Exam Neurological exam: Alert - Skin Skin Exam: Dry, Warm Results - Vital Signs Recent Vital Signs: Last Vital Signs Temp 98.1 F 03/09/18 06:23 Pulse 82 03/09/18 10:54 Resp 16 03/09/18 06:23 BP 148/76 03/09/18 10:54 Pulse Ox 99 03/09/18 06:23 - Labs Result Diagrams: 03/08/18 19:45 03/08/18 19:45 - Imaging and Cardiology CT scan - abdomen Status: Image reviewed by me, Report reviewed by me Assessment & Plan - Assessment and Plan (Free Text) Assessment: 78F with Stage II sacral ulcer Plan: - apply silvadene to sacrum BID with optifoam - rec offloading with q2 turning - air mattress - no plan for surgical intervention at this time - d/w Dr. Yoni Oden
[2018-03-09 16:28] VITALS: BP 142/77; PULSE 70; TEMP 98.7; O2SAT 96
[2018-03-09] MEDS ORDERED: Silver Sulfadiazine 1% Cream (25 gm) TP SCH (18:00)
[2018-03-09] MEDS ORDERED: Temazepam [Restoril] 30 MG (HOME MED) PO SCH (22:00)
[2018-03-10] MEDS ORDERED: Pantoprazole 40mg/100mL NS 40 MG/100 ML BAG IVPB SCH (06:00)
== END 2018-03-09 21:24 | disposition home or self-care (01) ==
LOC: ED 19:09 → ERH 21:39 → 5RNO 23:50
PROVIDERS: ADMIT Family Medicine; ATTEND Family Medicine
DX: K56.41 Fecal impaction (principal); K21.9 Gastro-esophageal reflux disease without esophagitis; I10 Essential (primary) hypertension; E78.5 Hyperlipidemia, unspecified; E78.00 Pure hypercholesterolemia, unspecified; F03.90 Unspecified dementia, unspecified severity, without behavioral disturbance, psychotic disturbance, mood disturbance, and anxiety; M06.9 Rheumatoid arthritis, unspecified; N28.1 Cyst of kidney, acquired; Z79.82 Long term (current) use of aspirin; Z82.49 Family history of ischemic heart disease and other diseases of the circulatory system; Z86.73 Personal history of transient ischemic attack (TIA), and cerebral infarction without residual deficits; Z91.81 History of falling
CPT/HCPCS: 70450; 71045; 72220; 74176; 80053; 82550; 83615; 84484; 85027; 85610; 85730; 93005; 99285; G0378; J7030